=== PATIENT | male | born 1945 | race Caucasian/White ===

== ENCOUNTER 2016-10-26 13:27 | Inpatient (IN) ==
[2016-10-26] MEDS ORDERED: Ondansetron 4 MG/2 ML VIAL IVP ONE (14:11)
[2016-10-26 14:24] LABS: Lymphocytes % 17.9 %
[2016-10-26 14:26] LABS: Basophils % 0.3 %; Eosinophils # 0.3 K/mcL (0.0-0.6); Eosinophils % 5.6 %; Hematocrit 24.6 % (37.5-50.1); Hemoglobin 7.7 g/dL (12.9-16.9); Immature Granulocytes % 0.7 % (0-4); Immature Platelets 12.5 % (1.1-6.1); Lymphocytes # 1.1 K/mcL (0.6-4.6); Mean Corpuscular HGB Conc 31.3 g/dL (31.6-35.5); Mean Corpuscular Hemoglobin 31.8 pg (28.0-33.3); Mean Corpuscular Volume 101.7 fL (83.0-100.0); Mean Platelet Volume 13.2 fL (9.4-12.4); Monocytes # 0.4 K/mcL (0.0-1.3); Monocytes % 6.8 %; Red Blood Count 2.42 M/mcL (4.19-5.50); Red Cell Distribution Width 15.7 % (11.5-14.5); Segmented Neutrophils % 68.7 %
[2016-10-26 14:30] LABS: INR 1.9
[2016-10-26 14:32] LABS: Activated Partial Thrombo Time 39.3 Seconds (26.0-36.0)
[2016-10-26 14:43] LABS: Calcium 9.4 mg/dL (8.6-10.8); Potassium 4.9 mEq/L (3.5-4.5)
[2016-10-26 14:50] LABS: Neutrophils # 4.1 K/mcL (1.6-8.9); Platelet Count 66 K/mcL (140-400)
[2016-10-26 14:52] LABS: Platelet Estimate Decreased (Normal)
--- NOTE | 2016-10-26 15:11 | Emergency Department Note ---
Disposition Clinical Impression: Thrombocytopenia Atrial fibrillation Qualifiers: Atrial fibrillation type: paroxysmal Qualified Code(s): I48.0 - Paroxysmal atrial fibrillation Anemia Qualifiers: Anemia type: iron deficiency Iron deficiency anemia type: chronic blood loss Qualified Code(s): D50.0 - Iron deficiency anemia secondary to blood loss ( chronic) GI bleeding Qualifiers: GI bleed type/associated pathology: unspecified gastrointestinal hemorrhage type Qualified Code(s): K92.2 - Gastrointestinal hemorrhage, unspecified Disposition: Admitted As Inpatient Condition: Good Time of Disposition: 15:13 General Adult HPI - General Chief complaint: ED Recheck/Abnormal Lab/Rx Stated complaint: anemia/Pn Time Seen by Provider: 10/26/16 13:30 Source: patient Mode of arrival: EMS Limitations: no limitations Nursing Notes Reviewed: Yes Vital Signs Reviewed: Yes - History of Present Illness HPI Narrative: 70-year-old male brought in from the [place] with concerns of anemia, weakness, shortness of breath, near syncope. Patient states that he has become increasingly short of breath and lightheaded over the past 2 weeks. He had a lab draw as an outpatient which returned as abnormal at 6.9. The [place] sent him to [facility] for further care and evaluation due to his dialysis. Patient receives dialysis Monday, Monday, Monday. He states he had his treatment already this morning. Patient also had a chest x-ray at the [place] which showed persistent multifocal airspace disease that could represent a residual or recurrent pneumonia. Patient states he has been treated with 3 different courses of antibiotics over the past month. He does state that he is mildly short of breath and does have a cough however he does not have a fever in the emergency department. Patient denies diarrhea, hematochezia, melena. Pain Scale: 0 - Related Data Home Medications Medication Instructions Recorded Confirmed Albuterol Sulfate [Albuterol 2 puff IH QID PRN 09/02/16 10/26/16 Inhaler] Apixaban [Eliquis] 5 mg PO BID 09/02/16 10/26/16 Calcium Acetate [Phos-LO] 1,334 mg PO TID 09/02/16 10/26/16 Carvedilol [Coreg] 6.25 mg PO BIDWM 09/02/16 10/26/16 Gabapentin [Neurontin] 300 mg PO DAILY 09/02/16 10/26/16 Isosorbide MONOnitrate (24 HR) 30 mg PO DAILY 09/02/16 10/26/16 [Imdur] Multivitamin [Multivitamins] 1 tab PO DAILY 09/02/16 10/26/16 Ondansetron ODT [Zofran ODT] 4 mg SL Q6H PRN 09/02/16 10/26/16 Oxycodone HCl 10 mg PO BID 09/02/16 10/26/16 Sevelamer [Renvela] 2,400 mg PO TIDWM 09/02/16 10/26/16 Acetaminophen/Chlorpheniramine 2 tab PO BID PRN 09/19/16 10/26/16 [Coricidin Hbp Cold & Flu Tab] Albuterol Neb [Proventil Neb] 2.5 mg IH BID PRN 09/19/16 10/26/16 Budesonide/Formoterol 160/4.5 2 puff IH Q12H 09/19/16 10/26/16 [Symbicort 160/4.5] Furosemide [Lasix] 40 mg PO DAILY 09/19/16 10/26/16 Pantoprazole Sodium [Protonix] 40 mg PO DAILY 09/19/16 10/26/16 Simvastatin [Zocor] 5 mg PO HS 09/19/16 10/26/16 Valsartan [Diovan] 80 mg PO BID 09/19/16 10/26/16 Amlodipine [Norvasc] 5 mg PO BID 10/26/16 10/26/16 Terazosin [Hytrin] 1 mg PO DAILY 10/26/16 10/26/16 Allergies Allergy/AdvReac Type Severity Reaction Status Date / Time morphine Allergy See Verified 09/19/16 05:43 Comments All systems ED: reviewed and negative except as stated. Constitutional: Reports: weakness. Denies: fever, chills, weight change Cardiovascular: Reports: dyspnea on exertion. Denies: chest pain, palpitations , syncope, paroxysmal nocturnal dyspnea Respiratory: Reports: cough, dyspnea, wheezes. Denies: hemoptysis Gastrointestinal: Denies: abdominal pain, nausea, vomiting, diarrhea, hematemesis, melena, hematochezia Musculoskeletal: Denies: back pain, neck pain Integumentary: Denies: rash, abrasion Past Medical History - Past Medical History Attestation: Yes The following information was validated with the patient. Source: patient Medical history: Reports: atrial fibrillation, COPD, coronary artery disease, CVA, diabetes, dialysis, hyperlipidemia, hypertension, myocardial infarction, renal disease Surgical history: Reports: coronary bypass (CABG), other Psychiatric history: Reports: no psych history - Social History Smoking Status: Never smoker Smokeless Tobacco Status: No Alcohol use: Reports: none Drug use: Reports: none Physical Exam General: Alert and in no acute distress Skin: Warm, dry, intact Head: Normocephalic and atraumatic Neck: Supple, trachea midline and no tenderness Cardiovascular: RRR, no murmur, normal perfusion Respiratory: CTAB, no wheezing, cough, or respiratory distress Musculoskeletal: Normal strength, no tenderness to palpation on exam GI: Soft, nontender, nondistended. Bowel sounds present Neuro: A&O to person, place, time and situation. No focal deficits noted on exam Psychiatric: cooperative and appropriate mood and affect. - General Limitations: no limitations General appearance: alert, in no apparent distress Course Vital Signs Temperature 98.0 F 10/26/16 13:29 Pulse Rate 73 10/26/16 13:29 Respiratory Rate 18 10/26/16 13:29 Blood Pressure 143/93 10/26/16 13:29 O2 Sat by Pulse Oximetry 92 L 10/26/16 13:29 Temperature 98.4 F 10/26/16 23:58 Pulse Rate 74 10/26/16 23:58 Respiratory Rate 20 10/26/16 23:58 Blood Pressure 116/67 10/26/16 23:58 O2 Sat by Pulse Oximetry 95 10/26/16 23:58 Oxygen Delivery Oxygen Delivery Nasal Cannula Medical Decision Making - [facility] Narrative Medical decision making narrative: Patient satting 89% with a good waveform in the emergency department. He likely has symptomatic anemia. Stool sample positive for occult blood. - Medical Records Medical records reviewed: Yes I reviewed the patient's medical records. - Lab Data Lab results reviewed: Yes I reviewed the patient's lab results. Result diagrams: 10/26/16 13:47 10/26/16 13:47 Lab Results 10/26/16 10/26/16 10/26/16 Range/Units 13:47 13:47 13:47 WBC 5.9 (4.3-11.1) K/mcL RBC 2.42 L (4.19-5.50) M/mcL Hgb 7.7 L (12.9-16.9) g/dL Hct 24.6 L (37.5-50.1) % MCV 101.7 H (83.0-100.0) fL MCH 31.8 (28.0-33.3) pg MCHC 31.3 L (31.6-35.5) g/dL RDW 15.7 H (11.5-14.5) % Plt Count 66 L (140-400) K/mcL MPV 13.2 H (9.4-12.4) fL Immature Gran % 0.7 (0-4) % Seg Neutrophils % 68.7 % Lymphocytes % 17.9 % Monocytes % 6.8 % Eosinophils % 5.6 % Basophils % 0.3 % Neutrophils # 4.1 (1.6-8.9) K/mcL Lymphocytes # 1.1 (0.6-4.6) K/mcL Monocytes # 0.4 (0.0-1.3) K/mcL Eosinophils # 0.3 (0.0-0.6) K/mcL Basophils # 0.0 (0.0-0.2) K/mcL Platelet Estimate Decreased L (Normal) Immature Plt Fraction 12.5 H (1.1-6.1) % PT 21.0 H (9.4-12.1) Seconds INR 1.9 APTT 39.3 H (26.0-36.0) Seconds Sodium 140 (136-145) mEq/L Potassium 4.9 H (3.5-4.5) mEq/L Chloride 101 (98-109) mEq/L Carbon Dioxide 31 H (19-29) mEq/L BUN 24 (8-26) mg/dL Creatinine 4.13 H (0.72-1.25) mg/dL Est GFR ( Amer) 17 L (> 60) Est GFR (Non-Af Amer) 14 L (> 60) BUN/Creatinine Ratio 6 (6-26) Glucose 194 H (70-99) mg/dL POC Glucose (58-89) Calculated Osmolality 299 (280-300) Calcium 9.4 (8.6-10.8) mg/dL B-Natriuretic Peptide (0-100) pg/mL Stool Occult Blood (Negative) Blood Type Antibody Screen Crossmatch 10/26/16 10/26/16 10/26/16 Range/Units 13:47 13:47 15:24 WBC (4.3-11.1) K/mcL RBC (4.19-5.50) M/mcL Hgb (12.9-16.9) g/dL Hct (37.5-50.1) % MCV (83.0-100.0) fL MCH (28.0-33.3) pg MCHC (31.6-35.5) g/dL RDW (11.5-14.5) % Plt Count (140-400) K/mcL MPV (9.4-12.4) fL Immature Gran % (0-4) % Seg Neutrophils % % Lymphocytes % % Monocytes % % Eosinophils % % Basophils % % Neutrophils # (1.6-8.9) K/mcL Lymphocytes # (0.6-4.6) K/mcL Monocytes # (0.0-1.3) K/mcL Eosinophils # (0.0-0.6) K/mcL Basophils # (0.0-0.2) K/mcL Platelet Estimate (Normal) Immature Plt Fraction (1.1-6.1) % PT (9.4-12.1) Seconds INR APTT (26.0-36.0) Seconds Sodium (136-145) mEq/L Potassium (3.5-4.5) mEq/L Chloride (98-109) mEq/L Carbon Dioxide (19-29) mEq/L BUN (8-26) mg/dL Creatinine (0.72-1.25) mg/dL Est GFR ( Amer) (> 60) Est GFR (Non-Af Amer) (> 60) BUN/Creatinine Ratio (6-26) Glucose (70-99) mg/dL POC Glucose (58-89) Calculated Osmolality (280-300) Calcium (8.6-10.8) mg/dL B-Natriuretic Peptide 2001 H (0-100) pg/mL Stool Occult Blood Positive A (Negative) Blood Type A POSITIVE Antibody Screen NEGATIVE Crossmatch See Detail 10/26/16 Range/Units 21:51 WBC (4.3-11.1) K/mcL RBC (4.19-5.50) M/mcL Hgb (12.9-16.9) g/dL Hct (37.5-50.1) % MCV (83.0-100.0) fL MCH (28.0-33.3) pg MCHC (31.6-35.5) g/dL RDW (11.5-14.5) % Plt Count (140-400) K/mcL MPV (9.4-12.4) fL Immature Gran % (0-4) % Seg Neutrophils % % Lymphocytes % % Monocytes % % Eosinophils % % Basophils % % Neutrophils # (1.6-8.9) K/mcL Lymphocytes # (0.6-4.6) K/mcL Monocytes # (0.0-1.3) K/mcL Eosinophils # (0.0-0.6) K/mcL Basophils # (0.0-0.2) K/mcL Platelet Estimate (Normal) Immature Plt Fraction (1.1-6.1) % PT (9.4-12.1) Seconds INR APTT (26.0-36.0) Seconds Sodium (136-145) mEq/L Potassium (3.5-4.5) mEq/L Chloride (98-109) mEq/L Carbon Dioxide (19-29) mEq/L BUN (8-26) mg/dL Creatinine (0.72-1.25) mg/dL Est GFR ( Amer) (> 60) Est GFR (Non-Af Amer) (> 60) BUN/Creatinine Ratio (6-26) Glucose (70-99) mg/dL POC Glucose 323 H (58-89) Calculated Osmolality (280-300) Calcium (8.6-10.8) mg/dL B-Natriuretic Peptide (0-100) pg/mL Stool Occult Blood (Negative) Blood Type Antibody Screen Crossmatch - Radiology Data Radiology results reviewed: Yes I reviewed the patient's radiology results. - EKG Data EKG #1 EKG attestation: Yes I reviewed and interpreted this EKG. EKG results narrative: ECG - interpreted by ED physician. Rate 68 atrial fibrillation, no STEMI
[2016-10-26] MEDS ORDERED: 0.9 % Sodium Chloride 500 ML ONE (16:36)
[2016-10-26] MEDS ORDERED: Naloxone 0.4 MG/ML INJ IVP PRN (17:11)
[2016-10-26] MEDS ORDERED: Ondansetron 4 MG/2 ML VIAL IVP PRN (17:11)
[2016-10-26] MEDS ORDERED: Acetaminophen 325 MG TABLET PO PRN (17:11)
[2016-10-26] MEDS ORDERED: D5% in Water 1,000 ML IV PRN (17:15)
[2016-10-26] MEDS ORDERED: Dextrose Gel 15 GM PO PRN ×2 (17:15)
[2016-10-26] MEDS ORDERED: *HR* Dextrose 50 % in Water (Syg) 50 ML SYRINGE IVP PRN (17:15)
[2016-10-26] MEDS ORDERED: Budesonide/Formoterol 160/4.5 MDI IH SCH (17:30)
--- NOTE | 2016-10-26 17:32 | Internal Med History&Physical ---
Date of Encounter: 10/26/16 Time of Encounter: 17:24 Assessment and Plan (1) Anemia Current visit: Yes Status: Acute Acute o chronic, with symptoms he will be admitted for blood transfusion, will hold Apixaban, PLT is 66, no indication for PLT transfusion, or FFP at this time as there is no overt bleeding at this time. Will monitor closely. GI consult for endoscopy/colonoscopy. Patient states his last colonoscopy was ~8 years ago patient is [id number] Qualifiers: Anemia type: iron deficiency Iron deficiency anemia type: chronic blood loss Qualified Code(s): D50.0 - Iron deficiency anemia secondary to blood loss (chronic) (2) Atrial fibrillation Current visit: Yes Status: Chronic Hold Apixaban rate is controlled, resume other home meds Qualifiers: Atrial fibrillation type: paroxysmal Qualified Code(s): I48.0 - Paroxysmal atrial fibrillation (3) Thrombocytopenia Current visit: Yes Status: Chronic PLT 66, previously 77 Will transfuse PLT if patient has bleeding , or if PLT drops <50 (4) DVT prophylaxis Current visit: Yes Status: Acute Intermittent compression devices (5) Hospital-acquired pneumonia Current visit: No Status: Resolved Resolved, CXR noted Patient with granulomas and recurrent pneumonia, current SOB possibly due to Anemia Patient does not want bronchoscopy for his recurrent pneumonias and persistent LLL infiltrate (6) CAD (coronary artery disease) Current visit: No Status: Chronic Qualifiers: Coronary Disease-Associated Artery/Lesion type: [place] artery [place] vs. transplanted heart: [place] heart Associated angina: without angina Qualified Code(s): I25.10 - Atherosclerotic heart disease of [place] coronary artery without angina pectoris (7) Diabetes mellitus, type 2 Current visit: Yes Status: Chronic Sliding scale insulin Qualifiers: Diabetes mellitus complication status: with kidney complications Diabetes mellitus complication detail: with chronic kidney disease Diabetes mellitus terminal clerk insulin use: without terminal clerk use Chronic kidney disease stage: on chronic dialysis Qualified Code(s): E11.22 - Type 2 diabetes mellitus with diabetic chronic kidney disease; N18.6 - End stage renal disease; Z99.2 - Dependence on renal dialysis (8) Essential hypertension Current visit: Yes Status: Chronic Resume home meds (9) ESRD (end stage renal disease) Current visit: Yes Status: Chronic Resume renal meds Renal consult for resumption of HD Internal Medicine - H&P: HPI Chief complaint: Shortness of breath Admitted From: Home Plans for Post Hospital Care: Home History of present illness: Mr. Lorenzana is a 70 year old male with past medical history of end-stage renal disease on hemodialysis Wednesdays and Fridays, chronic thrombocytopenia and anemia, atrial fibrillation on anticoagulation, recurrent pneumonias, status post left below knee amputation, diabetes mellitus type 2, CAD, hypertension and hyperlipidemia. Patient is seen at bedside He was hospitalized in September 2016 for management of pneumonia. He presents this time reporting shortness of breath for the past 1 week associated with easy fatigability, and generalized weakness. This morning he had an episode of dizziness with lightheadedness. He went for follow-up with his PCP and his hemoglobin was 6.9. He was referred here for blood transfusion. He denies proximal, denies hematemesis, denies hematochezia denies hematuria. He denies fevers or chills, reports chronic cough, he denies nausea vomiting he denies chest pain no change in bowel or bladder or urinary habits Patient has had several bouts of pneumonia between August 2016 and now, and had been offered bronchoscopy during his last admission which she vehemently refused and still refuses. Repeat hemoglobin done here is 7.7, patient's baseline is between 9- 10.platelet count 66,000, no leukocytosis. Repeat chest x-ray showed decreased persistent left lower lobe infiltrates and pulmonary vascular congestion. Stool occult test is positive PT is 21,INR was 1.9 creatinine is at baseline, mild hyperkalemia potassium 4.9. Past Med Surg Social Fam HX - Past Medical History Medical history: atrial fibrillation, COPD, coronary artery disease, CVA, diabetes, dialysis, hyperlipidemia, hypertension, myocardial infarction, renal disease Psychiatric history: no psych history - Past Surgical History Surgical History: coronary bypass (CABG), other - Social History Smoking Status: Never smoker Smokeless Tobacco Status: No Alcohol use: none Drug use: none - Family History Mother Hx Family Cardiac Disorders: Yes Hx Family Respiratory Disorders: No Hx Family Cancer: No Hx Family GI Disorders: No Hx Family Endocrine Disorder: No Hx Family Neuromuscular Disorders: No Hx Family Neurologic Disorders: No Hx Family HEENT Disorders: No Hx Family Autoimmune Disorders: No Internal Medicine - H&P: Meds Albuterol Sulfate [Albuterol Inhaler] 2 puff IH QID PRN 09/02/16 [History] Apixaban [Eliquis] 5 mg PO BID 09/02/16 [History] Calcium Acetate [Phos-LO] 1,334 mg PO TID 09/02/16 [History] Carvedilol [Coreg] 6.25 mg PO BIDWM 09/02/16 [History] Gabapentin [Neurontin] 300 mg PO DAILY 09/02/16 [History] Isosorbide MONOnitrate (24 HR) [Imdur] 30 mg PO DAILY 09/02/16 [History] Multivitamin [Multivitamins] 1 tab PO DAILY 09/02/16 [History] Ondansetron ODT [Zofran ODT] 4 mg SL Q6H PRN 09/02/16 [History] Oxycodone HCl 10 mg PO BID 09/02/16 [History] Sevelamer [Renvela] 2,400 mg PO TIDWM 09/02/16 [History] Acetaminophen/Chlorpheniramine [Coricidin Hbp Cold & Flu Tab] 2 tab PO BID PRN 09/19/16 [History] Albuterol Neb [Proventil Neb] 2.5 mg IH BID PRN 09/19/16 [History] Budesonide/Formoterol 160/4.5 [Symbicort 160/4.5] 2 puff IH Q12H 09/19/16 [ History] Furosemide [Lasix] 40 mg PO DAILY 09/19/16 [History] Pantoprazole Sodium [Protonix] 40 mg PO DAILY 09/19/16 [History] Simvastatin [Zocor] 5 mg PO HS 09/19/16 [History] Valsartan [Diovan] 80 mg PO BID 09/19/16 [History] Amlodipine [Norvasc] 5 mg PO BID 10/26/16 [History] Terazosin [Hytrin] 1 mg PO DAILY 10/26/16 [History] Allergies morphine Allergy (Verified 09/19/16 05:43) See Comments All Systems PM: A 10-system review of systems was performed and is negative for pertinent findings except as documented above in the HPI. - Constitutional Constitutional: fatigue, lethargy, malaise, no chills, no fever(s), no night sweats - EENT Eyes: no change in vision, no discharge, no pain, no photophobia Ears: no ear discharge, no ear pain, no tinnitus Nose, mouth and throat: no dysphagia, no nasal discharge, no neck pain, no sore throat - Cardiovascular Cardiovascular ROS IM: no chest pain, no diaphoresis, no dyspnea, no lightheadedness, no palpitations, no syncope - Respiratory Respiratory: cough, dyspnea - Gastrointestinal Gastrointestinal: no abdominal pain, no diarrhea, no hematemesis, no hematochezia, no melena, no nausea, no vomiting - Musculoskeletal Musculoskeletal ROS IM: no numbness, no tingling - Integumentary Integumentary IM: no rash, no unusual bruising - Neurological Neurological ROS: no confusion, no convulsions, no focal weakness, no numbness, no tingling, no tremor(s) - Hematologic/Lymphatic Hematologic/Lymphatic: no easy bruising - Constitutional Vitals: Temp Pulse Resp BP Pulse Ox 98 F 72 18 150/61 100 10/26/16 17:06 10/26/16 17:06 10/26/16 17:06 10/26/16 17:06 10/26/16 16:00 General appearance: Present: A&O X 3, pleasant, no acute distress - Head Head exam: Present: atraumatic - Eye Eye exam: Present: PERRL, conjuntiva pink, sclera anicteric - ENT ENT exam: Present: mucous membranes moist - Neck Neck exam general surgery: Present: normal inspection - Respiratory Respiratory exam: Present: CTAB. Absent: rales, rhonchi, stridor, wheezes, tachypnea - Cardiovascular Cardiovascular exam: Present: irregular rhythm, +S1, +S2. Absent: systolic murmur - GI/Abdominal GI/Abdominal exam: Present: normal bowel sounds, soft, no peritoneal signs. Absent: tenderness - Extremities Exam Extremities exam: Absent: pedal edema Additional comments: s/p LEft BKA Internal Med - H&P Results - Labs CBC & Chem 7: 10/26/16 13:47 10/26/16 13:47
[2016-10-26] MEDS: Albuterol 2.5 MG/3 ML NEBULIZER IH SCH (20:00)
[2016-10-26] MEDS ORDERED: Insulin LISPRO 300 UNITS/3 ML VIAL SQ SCH (21:00)
[2016-10-26] MEDS: amLODIPine 5 MG TABLET PO SCH (21:56)
[2016-10-26] MEDS: *HR* OxyCODONE ER (12 HR) 10 MG TABLET PO SCH (21:57)
[2016-10-26] MEDS: Valsartan 80 MG TABLET PO SCH (21:57)
[2016-10-27] MEDS: Albuterol 2.5 MG/3 ML NEBULIZER IH SCH ×5 (01:05→15:16)
[2016-10-27 05:58] LABS: Lymphocytes % 22.5 %; Red Cell Distribution Width 15.5 % (11.5-14.5)
[2016-10-27 06:00] LABS: Basophils % 0.5 %; Eosinophils # 0.4 K/mcL (0.0-0.6); Eosinophils % 6.8 %; Hematocrit 25.6 % (37.5-50.1); Hemoglobin 8.3 g/dL (12.9-16.9); Immature Granulocytes % 0.3 % (0-4); Immature Platelets 11.7 % (1.1-6.1); Lymphocytes # 1.4 K/mcL (0.6-4.6); Mean Corpuscular HGB Conc 32.4 g/dL (31.6-35.5); Mean Corpuscular Hemoglobin 32.8 pg (28.0-33.3); Mean Corpuscular Volume 101.2 fL (83.0-100.0); Mean Platelet Volume 13.3 fL (9.4-12.4); Monocytes # 0.5 K/mcL (0.0-1.3); Monocytes % 8.8 %; Neutrophils # 3.7 K/mcL (1.6-8.9); Red Blood Count 2.53 M/mcL (4.19-5.50); Segmented Neutrophils % 61.1 %
[2016-10-27 06:06] LABS: Potassium 5.2 mEq/L (3.5-4.5)
[2016-10-27 06:07] LABS: Platelet Count 58 K/mcL (140-400)
[2016-10-27 08:33] LABS: Albumin 3.1 g/dL (3.5-5.0); Bilirubin,Direct 0.3 mg/dL (0.0-0.5); Bilirubin,Indirect 0.5 mg/dL (0.0-1.2); Bilirubin,Total 0.8 mg/dL (0.2-1.2); Globulin 3.1 g/dL (2.4-3.5); Total Protein 6.2 g/dL (6.0-8.3)
[2016-10-27] MEDS: Valsartan 80 MG TABLET PO SCH (08:51)
[2016-10-27] MEDS: Calcium Acetate 667 MG CAPSULE PO SCH ×3 (08:51→17:52)
[2016-10-27] MEDS: amLODIPine 5 MG TABLET PO SCH (08:52)
[2016-10-27] MEDS: *HR* OxyCODONE ER (12 HR) 10 MG TABLET PO SCH (08:52)
[2016-10-27] MEDS ORDERED: Furosemide 40 MG TABLET PO SCH (09:00)
[2016-10-27] MEDS ORDERED: Gabapentin 300 MG CAPSULE PO SCH (09:00)
[2016-10-27] MEDS ORDERED: Multivit/Ca/Min/Fe/FA 1 TAB TABLET PO SCH (09:00)
[2016-10-27] MEDS ORDERED: Isosorbide MONOnitrate (24 HR) 30 MG TAB.ER.24H PO SCH (09:00)
--- NOTE | 2016-10-27 09:04 | Gastroenterology Consult Note ---
<Chari Saldivar - Last Filed: 10/27/16 11:10> Date of Encounter: 10/27/16 Time of Encounter: 10:55 - Assessment and plan (1) Anemia Current Visit: Yes Status: Acute Assessment and plan: acute on chronic. Admits melena for 'several days' prior to admission. Revd EGD/ Cscope with patient - he politely refuses those interventions at this time. Qualifiers: Anemia type: iron deficiency Iron deficiency anemia type: chronic blood loss Qualified Code(s): D50.0 - Iron deficiency anemia secondary to blood loss (chronic) (2) ESRD (end stage renal disease) Current Visit: Yes Status: Chronic Assessment and plan: on HD, MWF; attending discussed dialysis today versus tomorrow in prep for possible endoscopy. (3) Thrombocytopenia Current Visit: Yes Status: Chronic Assessment and plan: Unclear etiology. US liver to r/o cirrhosis. Inconclusive, ok to do CT with contrast per attending. - Time Spent With Patient Total time spent is greater than 50% in coordination of care (as documented) at patient's floor/unit and/or counseling patient: less than 15 minutes GI History of Present Illness - Data of Consult Consult date: 10/27/16 Requesting Physician: Demetria Cevallos MD - Consult Narrative Reason for consult: Anemia History of present illness: Mr. Lorenzana is a 70 year old male with PMH of ESRD on HD MWF, thrombocytopenia, chronic anemia, afib on Eliquis, s/p L BKA, DM2, CAD, HTN, HLD. Most recently, he was hospitalized in September 2016 for management of pneumonia from [facility]. He presents this time reporting shortness of breath for the past 1 week associated with easy fatigability, and generalized weakness. This morning he had an episode of dizziness with lightheadedness. He went for follow-up with his PCP and his hemoglobin was 6.9. He was referred here for blood transfusion by [facility]. He denies proximal, denies hematemesis, denies hematochezia denies hematuria.He denies fevers or chills, reports chronic cough, he denies nausea vomiting he denies chest pain no change in bowel or bladder or urinary habits Patient has had several bouts of pneumonia between August 2016 and now, and had been offered bronchoscopy during his last admission which he vehemently refused and still refuses. Hgb 7.7 upon arrival (baseline of 9), he received 1 unit PRBC, current hgb 8.3, plts are low at 58. CXR showed persistant lung infiltrates. Patient denies N/V, indigestion/heartburn; admits chronic dysphagia with liquids due to a complication during a procedure, 'they screwed up my neck'. Denies abd pain. Admits black stools for the past 'few days', denies BRBPR. Explained to patient the risks and benefits of EGD/Colon evaluation, he politely refused any intervention at this time. Colonoscopy: Approx 8 years EGD: 8-10 years Past Med Surg Social Fam HX - Past Medical History Medical history: atrial fibrillation, COPD, coronary artery disease, CVA, diabetes, dialysis, hyperlipidemia, hypertension, myocardial infarction, renal disease Psychiatric history: no psych history - Past Surgical History Surgical History: coronary bypass (CABG), other - Social History Smoking Status: Never smoker Smokeless Tobacco Status: No Alcohol use: none Drug use: none - Family History Mother Hx Family Cardiac Disorders: Yes Hx Family Respiratory Disorders: No Hx Family Cancer: No Hx Family GI Disorders: No Hx Family Endocrine Disorder: No Hx Family Neuromuscular Disorders: No Hx Family Neurologic Disorders: No Hx Family HEENT Disorders: No Hx Family Autoimmune Disorders: No - Gastrointestinal NSAID use: None noted Anticoagulation Use: Eliquis Number of BM Per Day: daily Gastrointestinal: Present: melena - Constitutional Constitutional: as per HPI - EENT Eyes: as per HPI Ears: Present: as per HPI Nose, mouth and throat: Present: dysphagia - Cardiovascular Cardiovascular ROS: Present: irregular heart rhythm - Respiratory Respiratory IM: Present: as per HPI - Neurological ROS Neurological GI: Present: as per HPI - Hematologic/Lymphatic Hematologic/Lymphatic pediatric: Present: as per HPI - Musculoskeletal Additional Comment: R BKA - Integumentary Integumentary GI: Present: as per HPI - Psychiatric ROS Psychiatric GI: Present: as per HPI - Endocrine Endocrine IM: Present: as per HPI - Constitutional Vitals: Temp Pulse Resp BP Pulse Ox 98.0 F 74 17 140/60 87 L 10/27/16 07:15 10/27/16 07:15 10/27/16 07:15 10/27/16 07:15 10/27/16 07:15 General appearance: Present: cooperative, A&O X 3, no acute distress, answers questions appropriately - Head Head exam: Present: atraumatic, normocephalic - Eye Eye exam: Present: scleral icterus - ENT ENT exam: Present: mucous membranes moist - Neck Neck exam general surgery: Present: normal inspection, trachea midline - Respiratory Respiratory exam: Present: decreased breath sounds - Cardiovascular Cardiovascular exam: Present: irregular rhythm - GI/Abdominal GI/Abdominal exam: Present: normal bowel sounds, soft, no peritoneal signs - Rectal Rectal exam: Present: deferred - Extremities Exam Extremities exam: Present: warm Additional comments: R BKA - Neurological Exam Neurological exam: Present: no focal deficits - Psychiatric Psychiatric exam: Present: normal affect, normal mood - Skin Skin exam: Present: dry, intact, pallor, warm Results - Labs CBC & Chem 7: 10/27/16 05:21 10/27/16 05:21 Labs: Last Result Calcium 9.0 mg/dL (8.6-10.8) 10/27/16 05:21 Iron 141 mcg/dL (65-175) 10/26/16 13:47 % Saturation 58 % (20-55) H 10/26/16 13:47 Transferrin 175 mg/dL (174-364) 10/26/16 13:47 Stool Occult Blood Positive (Negative) A 10/26/16 15:24 Entire Visit Hgb 8.3 g/dL (12.9-16.9) L 10/27/16 05:21 Hct 25.6 % (37.5-50.1) L 10/27/16 05:21 PT 21.0 Seconds (9.4-12.1) H 10/26/16 13:47 Total Bilirubin 0.8 mg/dL (0.2-1.2) 10/27/16 05:21 AST 17 Units/L (5-34) 10/27/16 05:21 ALT 16 Units/L (0-55) 10/27/16 05:21 - ABG ABG results: PT/INR, D-dimer PT 21.0 Seconds (9.4-12.1) H 10/26/16 13:47 Consult Discharge Plan - Plan [facility]errals: [facility]Primary Care Provider[facility] - <Walt Bacon - Last Filed: 10/27/16 17:23> Date of Encounter: 10/27/16 Time of Encounter: 14:00 - Time Spent With Patient Total time spent is greater than 50% in coordination of care (as documented) at patient's floor/unit and/or counseling patient: GI History of Present Illness - Data of Consult Requesting Physician: Demetria Cevallos MD - Consult Narrative History of present illness: Mr. Lorenzana is a 70 year old male - Constitutional Vitals: Temp Pulse Resp BP Pulse Ox 98.0 F 82 18 144/68 91 L 10/27/16 16:15 10/27/16 16:15 10/27/16 16:15 10/27/16 16:15 10/27/16 16:15 Results - Labs CBC & Chem 7: 10/27/16 05:21 10/27/16 05:21 Labs: Last Result Calcium 9.0 mg/dL (8.6-10.8) 10/27/16 05:21 Iron 141 mcg/dL (65-175) 10/26/16 13:47 % Saturation 58 % (20-55) H 10/26/16 13:47 Transferrin 175 mg/dL (174-364) 10/26/16 13:47 Stool Occult Blood Positive (Negative) A 10/26/16 15:24 Entire Visit Hgb 8.3 g/dL (12.9-16.9) L 10/27/16 05:21 Hct 25.6 % (37.5-50.1) L 10/27/16 05:21 PT 21.0 Seconds (9.4-12.1) H 10/26/16 13:47 Total Bilirubin 0.8 mg/dL (0.2-1.2) 10/27/16 05:21 AST 17 Units/L (5-34) 10/27/16 05:21 ALT 16 Units/L (0-55) 10/27/16 05:21 - ABG ABG results: PT/INR, D-dimer PT 21.0 Seconds (9.4-12.1) H 10/26/16 13:47 - Attending Attestation I examined this patient and my medical decision-making was reviewed with the TRANSIT POLICE OFFICER/PA/Advanced Practice Nurse/Resident Physician. I agree with the documented findings, disposition and treatment plan as described except to the extent set forth below.
[2016-10-27] MEDS: Insulin LISPRO 300 UNITS/3 ML VIAL SQ SCH ×3 (09:09→17:51)
--- NOTE | 2016-10-27 09:40 | Internal Med Progress Note ---
Date of Encounter: 10/27/16 Time of Encounter: 09:15 - Assessment and plan (1) Anemia Current Visit: Yes Status: Acute Assessment and plan: Patient's baseline hemoglobin is around 9-11 and he is noted to have hemoglobin of 7.7 at the time of admission along with a history of intermittent melena and long-term anticoagulation with Eliquis. He received 1 unit PRBC transfusion and his hemoglobin today is 8.3. Eliquis is currently being held. GI has been consulted for possible EGD/colonoscopy to rule out GI bleed. We will follow up recommendations; will also follow-up liver ultrasound that has been ordered by GI to evaluate for cirrhosis due to his ongoing thrombocytopenia and coagulopathy with INR of 1.9. Clear liquid diet as tolerated. Continue to monitor hemoglobin. Patient is also very clear about his goals of care and he would like to be DNR/ DNI and reluctant to undergo EGD/colonoscopy or bronchoscopy at this time, will continue to follow. Qualifiers: Anemia type: iron deficiency Iron deficiency anemia type: chronic blood loss Qualified Code(s): D50.0 - Iron deficiency anemia secondary to blood loss (chronic) (2) Atrial fibrillation Current Visit: Yes Status: Chronic Assessment and plan: Currently rate controlled. Hold anticoagulation for now and continue beta michelle. Qualifiers: Atrial fibrillation type: paroxysmal Qualified Code(s): I48.0 - Paroxysmal atrial fibrillation (3) Diabetes mellitus, type 2 Current Visit: Yes Status: Chronic Assessment and plan: Accu-Chek blood glucose monitoring with sliding scale insulin. Diabetic diet. Qualifiers: Diabetes mellitus complication status: with kidney complications Diabetes mellitus complication detail: with chronic kidney disease Diabetes mellitus [facility] insulin use: without termination clerk use Chronic kidney disease stage: on chronic dialysis Qualified Code(s): E11.22 - Type 2 diabetes mellitus with diabetic chronic kidney disease; N18.6 - End stage renal disease; Z99.2 - Dependence on renal dialysis (4) ESRD (end stage renal disease) Current Visit: Yes Status: Chronic Assessment and plan: Nephrology has been consulted for patient's hemodialysis needs. (5) Essential hypertension Current Visit: Yes Status: Chronic (6) Anemia of chronic disease Current Visit: Yes Status: Chronic (7) CAD (coronary artery disease) Current Visit: Yes Status: Chronic Qualifiers: Coronary Disease-Associated Artery/Lesion type: [place] artery [place] vs. transplanted heart: [place] heart Associated angina: without angina Qualified Code(s): I25.10 - Atherosclerotic heart disease of [place] coronary artery without angina pectoris - Subjective Interval history: Noted to be having dry cough intermittently and attributes it to chewing tobacco. Denies chest pain, shortness of breath, nausea, hematemesis, hematochezia. Reports intermittent melena for the last 2 months. Reluctant to have EGD and colonoscopy done at this time, needs rediscussion. - Constitutional Vitals: Temp Pulse Resp BP Pulse Ox 98.0 F 74 17 140/60 94 L 10/27/16 07:15 10/27/16 07:15 10/27/16 07:15 10/27/16 07:15 10/27/16 09:02 General appearance: Present: A&O X 3, answers questions appropriately - Head Head exam: Present: atraumatic, normocephalic - Neck Neck exam general surgery: Present: supple, trachea midline. Absent: lymphadenopathy - Respiratory Respiratory exam: Present: CTAB. Absent: accessory muscle use, rales, rhonchi, wheezes - Cardiovascular Cardiovascular exam: Present: irregular rhythm, +S1, +S2. Absent: diastolic murmur, gallop, rubs, systolic murmur - GI/Abdominal GI/Abdominal exam: Present: normal bowel sounds, soft, no peritoneal signs. Absent: distended, tenderness - Extremities Exam Extremities exam: Present: full ROM, normal inspection (s/p left BKA), warm, radial pulses palpable and symetrical. Absent: calf tenderness, cyanotic, pedal edema - Neurological Exam Neurological exam: Present: CN II-XII intact, oriented X3, no focal deficits. Absent: pronater drift, facial droop, speech deficit - Skin Skin exam: Present: dry, intact Internal Medicine: Result - Labs CBC & Chem 7: 10/27/16 05:21 10/27/16 05:21 Labs: Short CBC 10/27/16 Range/Units 05:21 WBC 6.0 (4.3-11.1) K/mcL Hgb 8.3 L (12.9-16.9) g/dL Hct 25.6 L (37.5-50.1) % Plt Count 58 L (140-400) K/mcL Neutrophils # 3.7 (1.6-8.9) K/mcL BMP 10/27/16 05:21 Sodium 140 Potassium 5.2 H Chloride 105 Carbon Dioxide 24 BUN 37 H D Creatinine 5.30 H Glucose 94 Calcium 9.0 Liver Function 10/27/16 Range/Units 05:21 Total Bilirubin 0.8 (0.2-1.2) mg/dL Direct Bilirubin 0.3 (0.0-0.5) mg/dL AST 17 (5-34) Units/L ALT 16 (0-55) Units/L Alkaline Phosphatase 142 H (38-126) Units/L Albumin 3.1 L (3.5-5.0) g/dL - ABG Interpretation ABG results: PT/INR, D-dimer PT 21.0 Seconds (9.4-12.1) H 10/26/16 13:47 Consult Discharge Plan - Plan [facility]errals: [facility] [Primary Care Provider] -
[2016-10-27] MEDS ORDERED: Budesonide/Formoterol 160/4.5 MDI IH SCH (10:00)
--- NOTE | 2016-10-27 11:25 | Electrocardiograph Report ---
[facility] Test Date: 2016-10-26 Pat Name: Ailyn Lorenzana Department: 105 Room: 2A31 Gender: M Lna: ELENO : 1945 Requested By: Kwabena Reina Order Number: [id number] Reading MD: Leonardo Ham MD Measurements Intervals Bryant Rate: 68 P: IA: 0 QRS: 34 QRSD: 98 T: -19 QT: 421 QTc: 438 Interpretive Statements ATRIAL FIBRILLATION NONSPECIFIC ST \T\ T-WAVE ABNORMALITY Electronically Signed On 10-27-16 11:24:45 EST by Leonardo Ham MD
--- NOTE | 2016-10-27 13:59 | Nephrology Consult Note ---
Date of Encounter: 10/27/16 Time of Encounter: 13:25 Assessment and Plan (1) ESRD (end stage renal disease) Current Visit: Yes Status: Chronic Anemia in setting of GI bleed with positive guiac. Hgb 8.3. Patient declined EGD /Cscope. Pending Liver US to r/o cirrhosis for unclear etiology of thrombocytopenia. ESRD, will dialyze tomorrow, keeping MWF schedule. History of Present Illness - Reason for Consult end stage renal disease - History of Present Illness Mr. Lorenzana is a 70 year old male with ESRD who dialyzes at [place] on MWF, last dialysis yesterday. Other PMH A fib, COPD CVA, DM II, HTN, HKD, HI, CAD, CABG, Left BKA and recentpersistent LLL infiltrates. Mr. Lorenzana was sent from CT to ER for evaluation of low Hgb 6.9, redraw Hgb 7.7. Mr. Lorenzana states he did have dizziness with lightheadedness yesterday. Mr. Lorenzana admitted melena stools for several days. Stool in ER guiac positive. CXR showed persistent multifocal airspace disease that could represent residual or recurrent pneumonia. He did receive one unit PRBC's and current Hgb 8.3. Mr. Lorenzana was offered EGD and Colonoscopy per GI, but he declined. He did agree to Liver US to R/O cirrhosis and states he wants to be discharged home today following US. Past Med Surg Social Fam HX - Past Medical History Medical history: atrial fibrillation, COPD, coronary artery disease, CVA, diabetes, dialysis, hyperlipidemia, hypertension, myocardial infarction, renal disease Psychiatric history: no psych history - Past Surgical History Surgical History: coronary bypass (CABG), other - Social History Smoking Status: Never smoker Smokeless Tobacco Status: No Alcohol use: none Drug use: none - Family History Mother Hx Family Cardiac Disorders: Yes Hx Family Respiratory Disorders: No Hx Family Cancer: No Hx Family GI Disorders: No Hx Family Endocrine Disorder: No Hx Family Neuromuscular Disorders: No Hx Family Neurologic Disorders: No Hx Family HEENT Disorders: No Hx Family Autoimmune Disorders: No Medications and Allergies Albuterol Sulfate [Albuterol Inhaler] 2 puff IH QID PRN 09/02/16 [History] Apixaban [Eliquis] 5 mg PO BID 09/02/16 [History] Calcium Acetate [Phos-LO] 1,334 mg PO TID 09/02/16 [History] Carvedilol [Coreg] 6.25 mg PO BIDWM 09/02/16 [History] Gabapentin [Neurontin] 300 mg PO DAILY 09/02/16 [History] Isosorbide MONOnitrate (24 HR) [Imdur] 30 mg PO DAILY 09/02/16 [History] Multivitamin [Multivitamins] 1 tab PO DAILY 09/02/16 [History] Ondansetron ODT [Zofran ODT] 4 mg SL Q6H PRN 09/02/16 [History] Oxycodone HCl 10 mg PO BID 09/02/16 [History] Sevelamer [Renvela] 2,400 mg PO TIDWM 09/02/16 [History] Acetaminophen/Chlorpheniramine [Coricidin Hbp Cold & Flu Tab] 2 tab PO BID PRN 09/19/16 [History] Albuterol Neb [Proventil Neb] 2.5 mg IH BID PRN 09/19/16 [History] Budesonide/Formoterol 160/4.5 [Symbicort 160/4.5] 2 puff IH Q12H 09/19/16 [ History] Furosemide [Lasix] 40 mg PO DAILY 09/19/16 [History] Pantoprazole Sodium [Protonix] 40 mg PO DAILY 09/19/16 [History] Simvastatin [Zocor] 5 mg PO HS 09/19/16 [History] Valsartan [Diovan] 80 mg PO BID 09/19/16 [History] Amlodipine [Norvasc] 5 mg PO BID 10/26/16 [History] Terazosin [Hytrin] 1 mg PO DAILY 10/26/16 [History] Allergies morphine Allergy (Verified 09/19/16 05:43) See Comments Review of Systems All Systems: reviewed and no additional remarkable complaints except as stated Exam - Vital Signs Vital signs: Initial Vital Signs Temp Pulse Resp BP Pulse Ox 98.0 F 73 18 143/93 92 L 10/26/16 13:29 10/26/16 13:29 10/26/16 13:29 10/26/16 13:29 10/26/16 13:29 Vital Signs - Last 8 Hours Temp Pulse Resp BP Pulse Ox 10/27/16 11:16 98.1 F 77 18 138/62 90 L 10/27/16 09:02 94 L 10/27/16 07:15 98.0 F 74 17 140/60 87 L Intake and Output 10/26/16 10/27/16 10/27/16 23:59 07:59 15:59 Intake Total 770 / 770 0 / 0 360 / 360 Output Total 0 / 0 0 / 0 Balance 770 / 770 0 / 0 360 / 360 Intake: Oral 400 / 400 0 / 0 360 / 360 Blood Product 370 / 370 Rbcs Leuko Poor As-1 370 / 370 Unit [id number] Output: Urine 0 / 0 0 / 0 Other: Meal Dinner Breakfast Percent of Meal Consumed 50% 100% Weight 70.4 kg Blood Glucose* 323 186 Patient Weight 10/27/16 23:59 Weight 70.4 kg - General Appearance General appearance: well-developed, well-nourished, appears started age EENT: mucous membranes moist Neck: no JVD Respiratory: clear Cardiology: no edema, irregular rhythm Additional Comments: right BKA Gastrointestinal: normoactive bowel sounds, no tenderness Integumentary: warm and dry Neurologic: alert and oriented x3 Psychiatric: mood/affect appropriate, cooperative Results - Lab Results 10/27/16 05:21 10/27/16 05:21 Most recent lab results Calcium 9.0 mg/dL (8.6-10.8) 10/27/16 05:21 Consult Discharge Plan - Plan [facility]errals: [facility] [Primary Care Provider] -
[2016-10-27 16:16] VITALS: BP 144/68
[2016-10-27] MEDS ORDERED: SODIUM CHLORIDE/NAHCO3/KCL/PEG 4,000 ML SOLN.RECON PO ONE (17:07)
--- NOTE | 2016-10-27 18:17 | Discharge Summary ---
Date of Encounter: 10/27/16 Time of Encounter: 10:00 - Discharge Diagnosis (1) Anemia Priority: Primary Status: Acute Qualifiers: Anemia type: iron deficiency Iron deficiency anemia type: chronic blood loss Qualified Code(s): D50.0 - Iron deficiency anemia secondary to blood loss (chronic) (2) Atrial fibrillation Priority: Secondary Status: Chronic Qualifiers: Atrial fibrillation type: paroxysmal Qualified Code(s): I48.0 - Paroxysmal atrial fibrillation (3) Diabetes mellitus, type 2 Priority: Secondary Status: Chronic Qualifiers: Diabetes mellitus complication status: with kidney complications Diabetes mellitus complication detail: with chronic kidney disease Diabetes mellitus [employer] insulin use: without [employer] use Chronic kidney disease stage: on chronic dialysis Qualified Code(s): E11.22 - Type 2 diabetes mellitus with diabetic chronic kidney disease; N18.6 - End stage renal disease; Z99.2 - Dependence on renal dialysis (4) ESRD (end stage renal disease) Priority: Secondary Status: Chronic (5) Essential hypertension Priority: Secondary Status: Chronic (6) Anemia of chronic disease Priority: Secondary Status: Chronic (7) CAD (coronary artery disease) Priority: Secondary Status: Chronic Qualifiers: Coronary Disease-Associated Artery/Lesion type: [place] artery [place] vs. transplanted heart: ch[place]koot heart Associated angina: without angina Qualified Code(s): I25.10 - Atherosclerotic heart disease of [place] coronary artery without angina pectoris - Discharge Medications Home Medications: Albuterol Sulfate [Albuterol Inhaler] 2 puff IH QID PRN 09/02/16 [History] Apixaban [Eliquis] 5 mg PO BID 09/02/16 [History] Calcium Acetate [Phos-LO] 1,334 mg PO TID 09/02/16 [History] Carvedilol [Coreg] 6.25 mg PO BIDWM 09/02/16 [History] Gabapentin [Neurontin] 300 mg PO DAILY 09/02/16 [History] Isosorbide MONOnitrate (24 HR) [Imdur] 30 mg PO DAILY 09/02/16 [History] Multivitamin [Multivitamins] 1 tab PO DAILY 09/02/16 [History] Ondansetron ODT [Zofran ODT] 4 mg SL Q6H PRN 09/02/16 [History] Oxycodone HCl 10 mg PO BID 09/02/16 [History] Sevelamer [Renvela] 2,400 mg PO TIDWM 09/02/16 [History] Acetaminophen/Chlorpheniramine [Coricidin Hbp Cold & Flu Tab] 2 tab PO BID PRN 09/19/16 [History] Albuterol Neb [Proventil Neb] 2.5 mg IH BID PRN 09/19/16 [History] Budesonide/Formoterol 160/4.5 [Symbicort 160/4.5] 2 puff IH Q12H 09/19/16 [ History] Furosemide [Lasix] 40 mg PO DAILY 09/19/16 [History] Pantoprazole Sodium [Protonix] 40 mg PO DAILY 09/19/16 [History] Simvastatin [Zocor] 5 mg PO HS 09/19/16 [History] Valsartan [Diovan] 80 mg PO BID 09/19/16 [History] Amlodipine [Norvasc] 5 mg PO BID 10/26/16 [History] Terazosin [Hytrin] 1 mg PO DAILY 10/26/16 [History] Allergies/Adverse Reactions: Allergies morphine Allergy (Verified 09/19/16 05:43) See Comments Procedures/tests Complete & Pending: Procedures Performed prior 72 hours Category Date Time Status US liver [US] Routine Exams 10/27/16 17:00 Taken Date of admission: 10/26/16 16:53 [facility] care physician[facility] Consults: 10/26/16 17:15 Consult to Nephrology [CONS] Routine Consulting Provider: [facility]WANT Reason for Consult: For resumption of hemodialysis Call Completed: No 10/26/16 17:22 Consult to Gastroenterology [CONS] Routine Consulting Provider: Gastroenterology Rae Reason for Consult: Patient with fib on apixaban, symptomatic anemia, positive occult stool, pls evaluate for colonoscopy/EGD. Call Completed: No Discharging clinician: Demetria Cevallos Anticipated date of discharge: 10/27/16 - Patient Status Disposition: Home, Self-Care Condition: Good Functional capacity at discharge: independent ambulation Overall status at discharge: patient is not back to baseline - Discharge Instructions Instructions: Anemia (GEN) Follow Up With: [facility] [Primary Care Provider] - (Please follow up with [facility] 7-10 days. ) Additional Instructions: Avoid ASA, NSAIDs; present to ER for further episodes of melena/hematochezia/ hematemesis; high risk for GI bleed due to Eliquis; - Diet and Activity Activity: resume usual activities as tolerated Diet: diabetic diet, low fat, low cholesterol, low salt diet, other (renal) Hospital course: Mr. Lorenzana is a 70 year old male with history of end-stage renal disease on hemodialysis and multiple other medical problems was sent by his primary care provider for possible blood transfusion for acute on chronic anemia. Patient reported no other complaints since admission except a few day history of intermittent melena. Since admission, he has been very clear regarding his goals of care and reinforcing that he wishes to be DNR/DNI and would just like to be left to in the event of any complications; he also continues to chew tobacco while in the hospital and thinks it can cause him no harm at this time. He was noted to have acute on chronic anemia and received 2 units of PRBC transfusion with improvement in hemoglobin. Stool occult blood test was positive and patient is noted to be on [employer] anticoagulation with Eliquis, for atrial fibrillation. GI has been consulted and recommended EGD and colonoscopy to look for a source of GI bleed to explain his anemia. He is also noted to have thrombocytopenia and coagulopathy with elevated PT/INR and recommended liver ultrasound to assess for cirrhosis. After a long and detailed discussion regarding the risks and benefits of having these procedures done, he refused to proceed with EGD and colonoscopy and agrees only for the liver ultrasound after which he demanded to be discharged. He understands that he is at risk for continued bleeding due to being on anticoagulation; he is also at risk for stroke without anticoagulation given his multiple other risk factors. It is difficult to assess which one would affect his functional status more. At this time, he is being discharged home with recommendation to follow-up with his primary care provider and associate manager to further follow up on these issues. He is medically stable at this time. He is also strongly recommended to present to the emergency room in the event of melena, hematochezia, generalized weakness or shortness of breath. - Time Spent with Patient Total time spent providing and/or coordinating discharge services: - Constitutional Vitals: Temp Pulse Resp BP Pulse Ox 98.0 F 82 18 144/68 91 L 10/27/16 16:15 10/27/16 16:15 10/27/16 16:15 10/27/16 16:15 10/27/16 16:15 General appearance: Present: A&O X 3, answers questions appropriately - Respiratory Respiratory exam: Present: CTAB. Absent: accessory muscle use, rales, rhonchi, wheezes - Cardiovascular Cardiovascular exam: Present: irregular rhythm, +S1, +S2. Absent: diastolic murmur, gallop, rubs, systolic murmur
--- NOTE | 2016-10-28 09:28 | Physician Discharge Referral ---
Home Health/Hosp Referral Info Transfer to: Home Health Attending Provider: Demetria Cevallos Provider in Charge Post Discharge: PCP - Diagnosis (1) Anemia Priority: Primary Status: Acute (2) Atrial fibrillation Priority: Secondary Status: Chronic (3) Diabetes mellitus, type 2 Priority: Secondary Status: Chronic (4) ESRD (end stage renal disease) Priority: Secondary Status: Chronic (5) Essential hypertension Priority: Secondary Status: Chronic (6) Anemia of chronic disease Priority: Secondary Status: Chronic (7) CAD (coronary artery disease) Priority: Secondary Status: Chronic - Respiratory Orders Smoking Cessation: Smoking cessation has been advised. For more information, call the [place] Tobacco Quit Line at 5-229-BTDR-NOW. - Diet/Nutrition Diet/Nutrition Orders: No Added Salt (CRISTAL), Renal, Cardiac, No Concentrated Sweets (diabetic) - Activity Activity Orders: Ambulate - Services Needed Following services are medically necessary services: Nursing, Physical Therapy, Occupational Therapy - Transfer Medications Home Medications: Albuterol Sulfate [Albuterol Inhaler] 2 puff IH QID PRN 09/02/16 [History] Apixaban [Eliquis] 5 mg PO BID 09/02/16 [History] Calcium Acetate [Phos-LO] 1,334 mg PO TID 09/02/16 [History] Carvedilol [Coreg] 6.25 mg PO BIDWM 09/02/16 [History] Gabapentin [Neurontin] 300 mg PO DAILY 09/02/16 [History] Isosorbide MONOnitrate (24 HR) [Imdur] 30 mg PO DAILY 09/02/16 [History] Multivitamin [Multivitamins] 1 tab PO DAILY 09/02/16 [History] Ondansetron ODT [Zofran ODT] 4 mg SL Q6H PRN 09/02/16 [History] Oxycodone HCl 10 mg PO BID 09/02/16 [History] Sevelamer [Renvela] 2,400 mg PO TIDWM 09/02/16 [History] Acetaminophen/Chlorpheniramine [Coricidin Hbp Cold & Flu Tab] 2 tab PO BID PRN 09/19/16 [History] Albuterol Neb [Proventil Neb] 2.5 mg IH BID PRN 09/19/16 [History] Budesonide/Formoterol 160/4.5 [Symbicort 160/4.5] 2 puff IH Q12H 09/19/16 [ History] Furosemide [Lasix] 40 mg PO DAILY 09/19/16 [History] Pantoprazole Sodium [Protonix] 40 mg PO DAILY 09/19/16 [History] Simvastatin [Zocor] 5 mg PO HS 09/19/16 [History] Valsartan [Diovan] 80 mg PO BID 09/19/16 [History] Amlodipine [Norvasc] 5 mg PO BID 10/26/16 [History] Terazosin [Hytrin] 1 mg PO DAILY 10/26/16 [History] Allergies/Adverse Reactions: Allergies morphine Allergy (Verified 09/19/16 05:43) See Comments Certification: Further, I certify that my clinical findings support that this patient is homebound (i.e. absences from home require considerable and taxing effort and are for medical reasons or mu-ism services or infrequently or short duration when for other reasons) because: Homebound Reason: Leaving home requires considerable and taxing effort due to condition Attestation: My signature below is to certify that this patient is under my care and that I, or nurse practitioner, or a physician's oceanographer assistant working with me, has a face-to -face encounter with this patient.
== END 2016-10-27 19:05 | disposition home or self-care (01) | DRG 811 ==
LOC: EMEROO 13:27 → 2ANU 16:53
PROVIDERS: ADMIT Internal Medicine; ATTEND Internal Medicine

== ENCOUNTER 2017-01-19 13:34 | Inpatient (IN) ==
[2017-01-19] MEDS ORDERED: *HR* Dextrose 50 % in Water (Syg) 50 ML SYRINGE IVP ONE (13:39)
[2017-01-19] MEDS ORDERED: Insulin Human Regular 10 UNIT in 0.9 % Sodium Chloride 10 ML IV ONE (13:39)
--- NOTE | 2017-01-19 13:55 | Emergency Department Note ---
Disposition Clinical Impression: Hyperkalemia, End stage renal disease, Bradycardia, Weakness Disposition: Admitted As Inpatient Condition: Fair [facility]errals: [facility] [Primary Care Provider] - Forms: ED Satisfaction Letter General Adult HPI - General Chief complaint: ED Recheck/Abnormal Lab/Rx Stated complaint: Bradycardia, Elevated K+ Time Seen by Provider: 01/19/17 13:39 Source: EMS Limitations: no limitations Nursing Notes Reviewed: Yes Vital Signs Reviewed: Yes - History of Present Illness HPI Narrative: Patient does have history of end-stage renal disease and I did see him immediately upon arrival and also spoke with the paramedics the patient was sent here from the [facility] and the story is that he has weakness for the last several days which is intermittent and no medications specifically use. Does have associated lightheadedness. He missed his dialysis yesterday so last dialysis was 3 days ago, at the [facility] his potassium was elevated at 5.9. No medications have yet been administered. The patient denies any pain in the head , neck, chest, abdomen or back. No fevers. Social history: No smoking or alcohol Pain Scale: 10 - Related Data Home Medications Medication Instructions Recorded Confirmed Albuterol Sulfate [Albuterol 2 puff IH QID PRN 09/02/16 01/19/17 Inhaler] Apixaban [Eliquis] 5 mg PO BID 09/02/16 01/19/17 Calcium Acetate [Phos-LO] 1,334 mg PO TID 09/02/16 01/19/17 Carvedilol [Coreg] 6.25 mg PO BIDWM 09/02/16 01/19/17 Gabapentin [Neurontin] 300 mg PO DAILY 09/02/16 01/19/17 Isosorbide MONOnitrate (24 HR) 30 mg PO DAILY 09/02/16 01/19/17 [Imdur] Multivitamin [Multivitamins] 1 tab PO DAILY 09/02/16 01/19/17 Ondansetron ODT [Zofran ODT] 4 mg SL Q6H PRN 09/02/16 01/19/17 Oxycodone HCl 10 mg PO BID 09/02/16 01/19/17 Sevelamer [Renvela] 2,400 mg PO TIDWM 09/02/16 01/19/17 Acetaminophen/Chlorpheniramine 2 tab PO BID PRN 09/19/16 01/19/17 [Coricidin Hbp Cold & Flu Tab] Albuterol Neb [Proventil Neb] 2.5 mg IH BID PRN 09/19/16 01/19/17 Budesonide/Formoterol 160/4.5 2 puff IH Q12H 09/19/16 01/19/17 [Symbicort 160/4.5] Furosemide [Lasix] 40 mg PO DAILY 09/19/16 01/19/17 Pantoprazole Sodium [Protonix] 40 mg PO DAILY 09/19/16 01/19/17 Simvastatin [Zocor] 5 mg PO HS 09/19/16 01/19/17 Valsartan [Diovan] 80 mg PO BID 09/19/16 01/19/17 Amlodipine [Norvasc] 5 mg PO BID 10/26/16 01/19/17 Terazosin [Hytrin] 1 mg PO DAILY 10/26/16 01/19/17 Allergies Allergy/AdvReac Type Severity Reaction Status Date / Time morphine Allergy See Verified 09/19/16 05:43 Comments Review of Systems: Constitutional: No fever Vision: No blurred vision ENT: No rhinorrhea Respiratory: No cough Allergic: No allergies : No blood in urine GI: No blood in stool Hematologic: No bruising Dermatologic: No skin rash Musculoskeletal: No pain in the extremities Neuro: No numbness of the extremities Past Medical History - Past Medical History Medical history: Reports: atrial fibrillation, COPD, coronary artery disease, CVA, diabetes, dialysis, hyperlipidemia, hypertension, myocardial infarction, renal disease Surgical history: Reports: coronary bypass (CABG), other Psychiatric history: Reports: no psych history - Social History Smoking Status: Never smoker Smokeless Tobacco Status: No Alcohol use: Reports: none Drug use: Reports: none Physical Exam CONSTITUTIONAL: Alert and oriented X3, well-nourished, well appearing, in no apparent distress HEAD: Normocephalic; atraumatic. EYES: PERRL, no scleral icterus. NOSE: The nose is normal in appearance without rhinorrhea RESP: Normal chest excursion with respiration; breath sounds clear and equal bilaterally; no wheezes, rhonchi, or rales CARD: Regular rhythm, without murmurs, rub or gallop ABD: Non-distended; non-tender, soft,without rigidity, rebound or guarding SKIN: Normal for age and race; warm and dry; no apparent lesions extremities: Left leg below the knee amputation - General Limitations: no limitations General appearance: alert, in no apparent distress Course Vital Signs Temperature 0 F L 01/19/17 13:38 Pulse Rate 36 01/19/17 13:38 Respiratory Rate 17 01/19/17 13:38 Blood Pressure 131/60 01/19/17 13:38 O2 Sat by Pulse Oximetry 91 01/19/17 13:38 Temperature 0 F L 01/19/17 15:22 Pulse Rate 36 01/19/17 13:38 Respiratory Rate 18 01/19/17 15:22 Blood Pressure 154/56 01/19/17 15:22 O2 Sat by Pulse Oximetry 96 01/19/17 14:29 Oxygen Delivery Oxygen Delivery Nasal Cannula Medical Decision Making - MDM Narrative Medical decision making narrative: I did review the patiens record from the [facility] and the patient will receive calcium , insulin and dextrose, bicarbonate and I will discuss further with nephrology about arranging emergent dialysis. I did review the records from the [facility]. [id number] - Medical Records Medical records reviewed: Yes I reviewed the patient's medical records. - Lab Data Lab results reviewed: Yes I reviewed the patient's lab results. Critical Care Time Critical Care Time: Yes Total Critical Care Time: 35 Attestation: Critical care time 35 minutes spent in a patient with critical bradycardia secondary to severe life-threatening hyperkalemia in a patient who has end- stage renal disease who has missed her dialysis and management of hyperkalemia, bradycardia, relative hypotension
--- NOTE | 2017-01-19 18:10 | Internal Med History&Physical ---
Date of Encounter: 01/19/17 Time of Encounter: 18:06 Assessment and Plan (1) ESRD (end stage renal disease) Current visit: No Status: Chronic he missed HD yesterday due to not feeling well. potassium was 7.2 at [facility], has no respiratory distress, Dr. Pino has been consulted and will be dialysed today. (2) Essential hypertension Current visit: No Status: Chronic BP borderline and bradycardic, however its sinus rhythm, as per the patinet and the family, his HR is always high 40s to 50s. will continue to monitor. (3) Anemia of chronic disease Current visit: No Status: Chronic last hb was 8.3 , he refused EGD and colonoscopy on his last admission when his stool occult was positive on 10/26/16. repeat blood owrk today at [facility] shows hb of 10. (4) Diabetes mellitus, type 2 Current visit: No Status: Chronic Qualifiers: Diabetes mellitus complication status: with kidney complications Diabetes mellitus complication detail: with chronic kidney disease Diabetes mellitus fdc insulin use: without fdc use Chronic kidney disease stage: on chronic dialysis Qualified Code(s): E11.22 - Type 2 diabetes mellitus with diabetic chronic kidney disease; N18.6 - End stage renal disease; Z99.2 - Dependence on renal dialysis (5) PAF (paroxysmal atrial fibrillation) Current visit: No Status: Chronic not in RVR, his anti coagulation was continued on his last admission and he is aware that he is high risk for bleeding. (6) Hyperkalemia Current visit: Yes Status: Acute k+ noted to be 7.2 at [facility]. has been given insulin and dextrose at ED with sidum bicarb and is getting HD today. recheck chem 7 after that. (7) Hypothermia Current visit: Yes Status: Acute was noted to be hypothermic, was given bear hugger but repeat rectal temp is 93.9 in the setting of bradycardia and hypothermia, will transfer the patient to [facility] for further management. Qualifiers: Encounter type: initial encounter Qualified Code(s): T68.XXXA - Hypothermia , initial encounter Internal Medicine - H&P: HPI Chief complaint: weakness and dizziness Admitted From: Home Plans for Post Hospital Care: Home History of present illness: Mr. Lorenzana is a 71 year old male with history of end-stage renal disease presented with weakness for the last several days, Does have associated lightheadedness. He missed his dialysis yesterday so last dialysis was 3 days ago, at the [facility] his potassium was elevated at 5.9 and was thus sent here. HE follows with DR. Pino. The patient denies any pain in the head, neck, chest, abdomen or back. No fevers. as per the , he went for dialysis yesterday. But walked back out without the treatment because he said he was not feeling okay. he says he has constant headaches and nausea, however no vomiting or diarrhea as per the , he has never missed his HD in the last 5 yrs. he denies any chest pain or sob or leg swelling. he says that his BP normally runs low at high 40s to 50s. Past Med Surg Social Fam HX - Past Medical History Medical history: atrial fibrillation, COPD, coronary artery disease, CVA, diabetes, dialysis, hyperlipidemia, hypertension, myocardial infarction, renal disease Psychiatric history: no psych history - Past Surgical History Surgical History: coronary bypass (CABG), other - Social History Smoking Status: Never smoker Smokeless Tobacco Status: No Alcohol use: none Drug use: none - Family History Mother Hx Family Cardiac Disorders: Yes Hx Family Respiratory Disorders: No Hx Family Cancer: No Hx Family GI Disorders: No Hx Family Endocrine Disorder: No Hx Family Neuromuscular Disorders: No Hx Family Neurologic Disorders: No Hx Family HEENT Disorders: No Hx Family Autoimmune Disorders: No Internal Medicine - H&P: Meds Albuterol Sulfate [Albuterol Inhaler] 2 puff IH QID PRN 09/02/16 [History] Apixaban [Eliquis] 5 mg PO BID 09/02/16 [History] Calcium Acetate [Phos-LO] 1,334 mg PO TID 09/02/16 [History] Carvedilol [Coreg] 6.25 mg PO BIDWM 09/02/16 [History] Gabapentin [Neurontin] 300 mg PO DAILY 09/02/16 [History] Isosorbide MONOnitrate (24 HR) [Imdur] 30 mg PO DAILY 09/02/16 [History] Multivitamin [Multivitamins] 1 tab PO DAILY 09/02/16 [History] Ondansetron ODT [Zofran ODT] 4 mg SL Q6H PRN 09/02/16 [History] Oxycodone HCl 10 mg PO BID 09/02/16 [History] Sevelamer [Renvela] 2,400 mg PO TIDWM 09/02/16 [History] Acetaminophen/Chlorpheniramine [Coricidin Hbp Cold & Flu Tab] 2 tab PO BID PRN 09/19/16 [History] Albuterol Neb [Proventil Neb] 2.5 mg IH BID PRN 09/19/16 [History] Budesonide/Formoterol 160/4.5 [Symbicort 160/4.5] 2 puff IH Q12H 09/19/16 [ History] Furosemide [Lasix] 40 mg PO DAILY 09/19/16 [History] Pantoprazole Sodium [Protonix] 40 mg PO DAILY 09/19/16 [History] Simvastatin [Zocor] 5 mg PO HS 09/19/16 [History] Valsartan [Diovan] 80 mg PO BID 09/19/16 [History] Amlodipine [Norvasc] 5 mg PO BID 10/26/16 [History] Terazosin [Hytrin] 1 mg PO DAILY 10/26/16 [History] Allergies morphine Allergy (Verified 09/19/16 05:43) See Comments All Systems PM: A 10-system review of systems was performed and is negative for pertinent findings except as documented above in the HPI. - Constitutional Vitals: Temp Pulse Resp BP Pulse Ox 94.5 F L 42 18 106/42 91 01/19/17 16:24 01/19/17 16:24 01/19/17 16:24 01/19/17 16:24 01/19/17 16:24 General appearance: Present: A&O X 3, no acute distress Exam: HEAD: Normocephalic; atraumatic. EYES: PERRL, no scleral icterus. RESP: Normal chest excursion with respiration; breath sounds clear and equal bilaterally; no wheezes, rhonchi, or rales CARD: Regular rhythm, without murmurs, rub or gallop ABD: Non-distended; non-tender, soft,without rigidity, rebound or guarding SKIN: Normal for age and race; warm and dry; no apparent lesions extremities: Left leg below the knee amputation, no swelling.
[2017-01-19] MEDS ORDERED: Naloxone 0.4 MG/ML INJ IVP PRN (18:24)
[2017-01-19] MEDS ORDERED: 0.9 % Sodium Chloride 250 ML IVC PRN (18:54)
[2017-01-19] MEDS ORDERED: 0.9 % Sodium Chloride 1,000 ML PRIME SCH (19:15)
[2017-01-19] MEDS ORDERED: 0.9 % Sodium Chloride 2,000 ML ONE (20:58)
[2017-01-19 21:17] LABS: Hepatitis B Surface Antigen Nonreactive (Nonreactive)
[2017-01-19] MEDS: Budesonide/Formoterol 160/4.5 MDI IH SCH (22:14)
[2017-01-20] MEDS: Calcium Acetate 667 MG CAPSULE PO SCH ×4 (00:12→21:44)
[2017-01-20] MEDS: APIXABAN 5 MG TABLET PO SCH ×3 (00:14→21:35)
[2017-01-20] MEDS: amLODIPine 5 MG TABLET PO SCH ×3 (00:14→21:35)
[2017-01-20 05:15] LABS: Basophils % 0.3 %; Hemoglobin 9.1 g/dL (12.9-16.9); Mean Platelet Volume 12.2 fL (9.4-12.4); Red Blood Count 2.84 M/mcL (4.19-5.50)
[2017-01-20 05:16] LABS: Eosinophils # 0.4 K/mcL (0.0-0.6); Eosinophils % 6.3 %; Hematocrit 27.9 % (37.5-50.1); Immature Granulocytes % 0.3 % (0-4); Immature Platelets 8.6 % (1.1-6.1); Lymphocytes # 0.7 K/mcL (0.6-4.6); Lymphocytes % 9.8 %; Mean Corpuscular HGB Conc 32.6 g/dL (31.6-35.5); Mean Corpuscular Volume 98.2 fL (83.0-100.0); Monocytes # 0.6 K/mcL (0.0-1.3); Monocytes % 8.3 %; Neutrophils # 5.1 K/mcL (1.6-8.9); Red Cell Distribution Width 14.8 % (11.5-14.5)
[2017-01-20 05:17] LABS: Platelet Count 52 K/mcL (140-400)
[2017-01-20 05:25] LABS: Calcium 8.5 mg/dL (8.6-10.8); Magnesium 1.7 mg/dL (1.6-2.6); Phosphorous 5.9 mg/dL (2.3-4.7); Potassium 5.8 mEq/L (3.5-4.5)
[2017-01-20] MEDS: Isosorbide MONOnitrate (24 HR) 30 MG TAB.ER.24H PO SCH (08:10)
[2017-01-20] MEDS: Budesonide/Formoterol 160/4.5 MDI IH SCH ×2 (08:26→20:17)
--- NOTE | 2017-01-20 09:56 | Nephrology Consult Note ---
Date of Encounter: 01/20/17 Time of Encounter: 09:53 Assessment and Plan (1) ESRD (end stage renal disease) Current Visit: No Status: Chronic Patient has end-stage renal disease. He was admitted yesterday with hyperkalemia weakness and falling. Also had associated bradycardia. He underwent urgent dialysis yesterday. Today's potassium is down to 5.8. Heart rate is ranging from 55-66. Patient will undergo his dialysis again tomorrow. He is stable from a volume perspective. Hemoglobin is 9.1. He will be maintained on Aranesp. (2) Hyperkalemia Current Visit: No Status: Resolved (3) Atrial fibrillation Current Visit: No Status: Chronic Qualifiers: Atrial fibrillation type: paroxysmal Qualified Code(s): I48.0 - Paroxysmal atrial fibrillation History of Present Illness - History of Present Illness This is a 71-year-old male with end-stage renal disease. He receives dialysis in [place] every Monday. Patient missed dialysis this past Monday. He missed dialysis again yesterday. He said he had not been feeling well. Patient fell at home. [place] Patient was noted be hyperkalemic. He also was noted to be bradycardic. He subsequently was transferred to [place] and admitted to the hospital. Patient underwent urgent dialysis last evening. His potassium was 7.2. This morning his potassium is 5.8. Patient says overall he does not feel well but he does not give any specific complaints. He says his breathing is been okay. He denies any chest pain. His appetite is only been fair. Overall the patient has had a progressive decline and become more and more debilitated over the past several months or so. Past Med Surg Social Fam HX - Past Medical History Medical history: atrial fibrillation, COPD, coronary artery disease, CVA, diabetes, dialysis, hyperlipidemia, hypertension, myocardial infarction, renal disease Psychiatric history: no psych history - Past Surgical History Surgical History: coronary bypass (CABG), other - Social History Smoking Status: Never smoker Smokeless Tobacco Status: No Alcohol use: none Drug use: none - Family History Mother Hx Family Cardiac Disorders: Yes Hx Family Respiratory Disorders: No Hx Family Cancer: No Hx Family GI Disorders: No Hx Family Endocrine Disorder: No Hx Family Neuromuscular Disorders: No Hx Family Neurologic Disorders: No Hx Family HEENT Disorders: No Hx Family Autoimmune Disorders: No Medications and Allergies Albuterol Sulfate [Albuterol Inhaler] 2 puff IH QID PRN 09/02/16 [History] Apixaban [Eliquis] 5 mg PO BID 09/02/16 [History] Calcium Acetate [Phos-LO] 1,334 mg PO TID 09/02/16 [History] Carvedilol [Coreg] 6.25 mg PO BIDWM 09/02/16 [History] Gabapentin [Neurontin] 300 mg PO DAILY 09/02/16 [History] Isosorbide MONOnitrate (24 HR) [Imdur] 30 mg PO DAILY 09/02/16 [History] Multivitamin [Multivitamins] 1 tab PO DAILY 09/02/16 [History] Ondansetron ODT [Zofran ODT] 4 mg SL Q6H PRN 09/02/16 [History] Oxycodone HCl 10 mg PO BID 09/02/16 [History] Sevelamer [Renvela] 2,400 mg PO TIDWM 09/02/16 [History] Acetaminophen/Chlorpheniramine [Coricidin Hbp Cold & Flu Tab] 2 tab PO BID PRN 09/19/16 [History] Albuterol Neb [Proventil Neb] 2.5 mg IH BID PRN 09/19/16 [History] Budesonide/Formoterol 160/4.5 [Symbicort 160/4.5] 2 puff IH Q12H 09/19/16 [ History] Furosemide [Lasix] 40 mg PO DAILY 09/19/16 [History] Pantoprazole Sodium [Protonix] 40 mg PO DAILY 09/19/16 [History] Simvastatin [Zocor] 5 mg PO HS 09/19/16 [History] Valsartan [Diovan] 80 mg PO BID 09/19/16 [History] Amlodipine [Norvasc] 5 mg PO BID 10/26/16 [History] Terazosin [Hytrin] 1 mg PO DAILY 10/26/16 [History] Allergies morphine Allergy (Verified 09/19/16 05:43) See Comments Review of Systems Constitutional: as per HPI, weakness Eyes: bilateral: blurred vision (patient denies), diplopia (patient denies) Nose, mouth and throat: no dizziness, no headache(s) Cardiovascular: dyspnea on exertion, irregular heart rhythm Respiratory: dyspnea on exertion Gastrointestinal: no abdominal pain, no change in bowel habits Musculoskeletal: back pain, no muscle weakness, no numbness Integumentary: no hirsutism, no striae Neurological: weakness Psychiatric: no depression, no difficulty concentrating Endocrine: as per HPI Exam - Vital Signs Vital signs: Initial Vital Signs Temp Pulse Resp BP Pulse Ox 0 F L 36 17 131/60 91 01/19/17 13:38 01/19/17 13:38 01/19/17 13:38 01/19/17 13:38 01/19/17 13:38 Vital Signs - Last 8 Hours Temp Pulse Resp BP Pulse Ox 01/20/17 08:31 16 97 01/20/17 08:17 71 98 01/20/17 07:34 98.4 F 70 18 149/69 97 01/20/17 03:33 98.3 F 65 20 132/88 95 Intake and Output 01/19/17 01/20/17 01/20/17 23:59 07:59 15:59 Intake Total 600 / 600 Output Total 1675 / 1675 Balance -1075 / -1075 Intake: Oral 0 / 0 Intake, Rinseback and 600 / 600 Flushes Output: Urine 75 / 75 Total Dialysis Output 1600 / 1600 Other: Weight 71.5 kg 71.5 kg Blood Glucose* 218 140 Hemodialysis Net Fluid 1kg Removed (mL) Patient Weight 01/20/17 23:59 Weight 71.5 kg - General Appearance Exam: Patient is alert and oriented. He is in no acute distress. Appears chronically ill. Neck is supple. Lungsbreath sounds otherwise clear. Heart irregular rate and rhythm consistent with atrial fibrillation. Heart rate is ranging from 55-66 on the youth nutritional monitor. Abdomen shows normal bowel sounds bruits masses or megaly or tenderness. The patient has no peripheral edema. He is status post left below-knee amputation. There is a functioning AV fistula in the left arm. Results - Lab Results 01/20/17 04:58 01/20/17 04:58 Most recent lab results Calcium 8.5 mg/dL (8.6-10.8) L 01/20/17 04:58 Phosphorus 5.9 mg/dL (2.3-4.7) H 01/20/17 04:58 Magnesium 1.7 mg/dL (1.6-2.6) 01/20/17 04:58 Consult Discharge Plan - Plan Referrals: RAGHAVENDRA,PCP [Primary Care Provider] - 01/27/17 12:30 pm
--- NOTE | 2017-01-20 13:25 | Internal Med Progress Note ---
Date of Encounter: 01/20/17 Time of Encounter: 09:00 - Assessment and plan (1) Bradycardia Current Visit: Yes Status: Acute Assessment and plan: Pt was on betablocker for A Fib rate control. Bradycardia improved after hold beta michelle. Will decrease dose of carvedilol, continue closely monitoring. (2) Weakness Current Visit: Yes Status: Acute Assessment and plan: Etiology is undetermined, possibly multifactoral. No signs of acute infection. Continue supportive management. Pt/OT evaluation. (3) Essential hypertension Current Visit: No Status: Chronic Assessment and plan: Continue home medications. (4) Anemia of chronic disease Current Visit: No Status: Chronic Assessment and plan: Hgb is stable. (5) Atrial fibrillation Current Visit: No Status: Chronic Assessment and plan: Rate is controlled (bradycardia initially). On eliquis for anticoagulation. Qualifiers: Atrial fibrillation type: paroxysmal Qualified Code(s): I48.0 - Paroxysmal atrial fibrillation (6) Hyperkalemia Current Visit: Yes Status: Acute Assessment and plan: Due to ESRD. On HD. F/U potassium level. (7) End stage renal disease Current Visit: Yes Status: Acute Assessment and plan: On HD. Nephrology on case. (8) DVT prophylaxis Current Visit: No Status: Acute Assessment and plan: Pt is on eliquis. - Time Spent With Patient 25 - 35 minutes - Subjective Interval history: Patient is a 71-year-old male admitted for general weakness and hyperkalemia. he past medical history is sgnificant for A. fib Humphrey COPD, CAD,end-stage renal disease on hemodialysis. Patient was seen and examined. He is awake alert , still weak. bradycardia has impoved after holding beta michelle. Hyperkalemia improved after HD. Nephrology on case. Vitals stable. Decrease carvedilol to 3.125mg po bid. Continue closely monitoring pt in tele. - Constitutional Vitals: Temp Pulse Resp BP Pulse Ox 98.2 F 74 17 120/55 95 01/20/17 11:38 01/20/17 11:38 01/20/17 11:38 01/20/17 11:38 01/20/17 11:38 General appearance: Present: A&O X 3, no acute distress - Head Head exam: Present: atraumatic, normocephalic - Eye Eye exam: Present: PERRL, conjuntiva pink, sclera anicteric Pupils: Present: PERRL - Neck Neck exam general surgery: Present: supple, trachea midline. Absent: lymphadenopathy - Respiratory Respiratory exam: Present: CTAB. Absent: accessory muscle use, rales, rhonchi, wheezes - Cardiovascular Cardiovascular exam: Present: RRR, +S1, +S2. Absent: diastolic murmur, gallop, rubs, systolic murmur - GI/Abdominal GI/Abdominal exam: Present: normal bowel sounds, soft, no peritoneal signs. Absent: distended, tenderness - Extremities Exam Extremities exam: Present: warm, radial pulses palpable and symetrical. Absent : calf tenderness, cyanotic, pedal edema Additional comments: Left BKA. - Neurological Exam Neurological exam: Present: CN II-XII intact, oriented X3, no focal deficits. Absent: pronater drift, facial droop, speech deficit - Skin Skin exam: Present: dry, intact Internal Medicine: Result - Labs CBC & Chem 7: 01/20/17 04:58 01/20/17 04:58 Labs: Short CBC 01/20/17 Range/Units 04:58 WBC 6.8 (4.3-11.1) K/mcL Hgb 9.1 L (12.9-16.9) g/dL Hct 27.9 L (37.5-50.1) % Plt Count 52 L (140-400) K/mcL Neutrophils # 5.1 (1.6-8.9) K/mcL BMP 01/20/17 04:58 Sodium 136 Potassium 5.8 H Chloride 98 Carbon Dioxide 29 BUN 50 H Creatinine 7.21 H Glucose 247 H Calcium 8.5 L Consult Discharge Plan - Plan [facility]errals: [facility] [[facility] Care Provider[facility] - 01/27/17 12:30 pm
[2017-01-20] MEDS: *HR* OxyCODONE Immed Rel 5 MG TABLET PO SCH ×2 (14:10→21:35)
[2017-01-20] MEDS: Valsartan 80 MG TABLET PO SCH (21:35)
[2017-01-21] MEDS ORDERED: 0.9 % Sodium Chloride 250 ML IVC PRN (08:30)
--- NOTE | 2017-01-21 08:32 | Nephrology Progress Note ---
Date of Encounter: 01/21/17 Time of Encounter: 08:29 - Assessment and Plan (1) ESRD (end stage renal disease) Current Visit: No Status: Chronic The patient will undergo dialysis today. He will then be maintained on his regular scheduled dialysis every Monday. He will be dialyzed on a 2K bath. (2) Hyperkalemia Current Visit: No Status: Resolved (3) Atrial fibrillation Current Visit: No Status: Chronic Qualifiers: Atrial fibrillation type: paroxysmal Qualified Code(s): I48.0 - Paroxysmal atrial fibrillation Subjective Interval history: Patient reports she is feeling better today. He is sitting on the edge of the bed eating breakfast. Potassium yesterday was 5.8. Heart rate is in the mid 60s. Objective - Vital Signs Vital signs: Vital Signs Temp Pulse Resp BP Pulse Ox 01/21/17 07:00 97.8 F 66 18 147/77 96 01/21/17 03:35 97.7 F 61 18 164/68 100 01/20/17 23:39 98.3 F 68 18 134/61 94 01/20/17 20:36 98 F 71 18 148/70 95 01/20/17 15:26 97.5 F L 66 16 135/64 94 01/20/17 11:38 98.2 F 74 17 120/55 95 01/20/17 10:49 98.5 F 67 16 142/65 100 01/20/17 08:31 16 97 Intake and Output 01/20/17 01/21/17 01/21/17 23:59 07:59 15:59 Intake Total 240 / 240 0 / 0 Output Total 0 / 0 Balance 240 / 240 0 / 0 Intake: Oral 240 / 240 0 / 0 Output: Urine 0 / 0 Other: Meal Dinner Percent of Meal Consumed 100% Weight 70.5 kg Blood Glucose* 190 Patient Weight 01/21/17 23:59 Weight 70.5 kg - General Appearance Exam: Patient is alert and oriented. He is in no acute distress. Lung sounds. Heart irregular rate and rhythm consistent with atrial fibrillation. Abdomen is benign. There is no peripheral edema. Patient is status post left BKA. There is a functioning AV fistula in the left arm. - Lab 01/20/17 04:58 01/20/17 04:58 Most recent lab results Calcium 8.5 mg/dL (8.6-10.8) L 04/14/17 04:58 Phosphorus 5.9 mg/dL (2.3-4.7) H 01/20/17 04:58 Magnesium 1.7 mg/dL (1.6-2.6) 01/20/17 04:58 Consult Discharge Plan - Plan Referrals: RAGHAVENDRAPCP [Primary Care Provider] - 01/27/17 12:30 pm
[2017-01-21] MEDS: Calcium Acetate 667 MG CAPSULE PO SCH ×3 (09:16→21:15)
[2017-01-21] MEDS: amLODIPine 5 MG TABLET PO SCH ×2 (09:16→21:12)
[2017-01-21] MEDS: Isosorbide MONOnitrate (24 HR) 30 MG TAB.ER.24H PO SCH (09:16)
[2017-01-21] MEDS: Valsartan 80 MG TABLET PO SCH ×2 (09:16→21:12)
[2017-01-21] MEDS: APIXABAN 5 MG TABLET PO SCH ×2 (09:16→21:12)
[2017-01-21] MEDS: *HR* OxyCODONE Immed Rel 5 MG TABLET PO SCH (09:17)
[2017-01-21] MEDS: Budesonide/Formoterol 160/4.5 MDI IH SCH ×2 (10:45→20:24)
[2017-01-21 10:47] LABS: Basophils % 0.2 %; Eosinophils # 0.5 K/mcL (0.0-0.6); Eosinophils % 7.9 %; Hematocrit 25.4 % (37.5-50.1); Hemoglobin 8.4 g/dL (12.9-16.9); Immature Granulocytes % 0.3 % (0-4); Lymphocytes # 0.9 K/mcL (0.6-4.6); Lymphocytes % 15.7 %; Mean Corpuscular HGB Conc 33.1 g/dL (31.6-35.5); Mean Corpuscular Hemoglobin 32.3 pg (28.0-33.3); Mean Corpuscular Volume 97.7 fL (83.0-100.0); Mean Platelet Volume 13.3 fL (9.4-12.4); Monocytes # 0.3 K/mcL (0.0-1.3); Monocytes % 5.1 %; Red Cell Distribution Width 14.8 % (11.5-14.5); Segmented Neutrophils % 70.8 %
[2017-01-21 10:48] LABS: Platelet Count 55 K/mcL (140-400)
[2017-01-21 11:02] LABS: Albumin 2.9 g/dL (3.5-5.0); Bilirubin,Total 0.6 mg/dL (0.2-1.2); Calcium 8.4 mg/dL (8.6-10.8); Globulin 2.9 g/dL (2.4-3.5); Total Protein 5.8 g/dL (6.0-8.3)
[2017-01-21] MEDS ORDERED: 0.9 % Sodium Chloride 2,000 ML ONE (13:22)
--- NOTE | 2017-01-21 14:17 | Internal Med Progress Note ---
<Remington Fontenot - Last Filed: 01/21/17 14:14> Date of Encounter: 01/21/17 Time of Encounter: 14:14 - Assessment and plan (1) Altered mental status, unspecified Current Visit: Yes Status: Acute Assessment and plan: Patient has altered mentation following dialysis today. Possibly a presyncopal event and hypotension given his description of near-syncope and dizziness. Additionally family states that confusion began today. His neuro exam other than confusion is benign. It is somewhat limited as cannot perform extraocular motions disease too confused or rapid alternating movements. However I cannot elicit any neurologic deficits on exam. No signs of infection on exam. Has a normal white count. He did receive some oxycodone today. This may be the cause however he is quite alert for this to be side effect from oxycodone. Will get a CT of the head to rule out any bleeding or neurologic event. If he develops focal symptoms may consider further testing with an MRI. We will hold any further Roxicodone and when we do resume it will recommend possibly lowering the dosage. He currently gets 10 mg twice a day scheduled. (2) Confusion Current Visit: Yes Status: Acute Assessment and plan: As stated above. (3) End stage renal disease Current Visit: Yes Status: Acute Assessment and plan: Nephrology following. Appreciate their assistance. (4) Hyperkalemia Current Visit: Yes Status: Acute (5) Status post below knee amputation of left lower extremity Current Visit: Yes Status: Acute (6) Peripheral artery disease Current Visit: Yes Status: Chronic (7) Generalized weakness Current Visit: Yes Status: Acute Assessment and plan: PT/OT consult and will need home health. (8) Thrombocytopenia Current Visit: Yes Status: Acute Assessment and plan: Platelets currently 52. Etiology unclear at this time. He does say that he is drinking quite heavily. May consider evaluation for cirrhosis. However no external stigmata of cirrhosis at this time. No indication for transfusion at this time. Transfuse if the hospital 10. This is chronic. (9) Bicytopenia Current Visit: Yes Status: Acute (10) Depression Current Visit: Yes Status: Acute Assessment and plan: Patient states he does not care anymore and wants to give up. This may be what is causing some of his confusion. Consider pseudodementia. However we will workup other causes first before adding any medication that might add confusion to the diagnosis. He denies any suicidal ideations. If workup is negative tomorrow we will consider adding possibly mirtazapine. (11) Atrial fibrillation Current Visit: Yes Status: Acute Assessment and plan: Currently rate controlled. On Eliquis (12) DVT prophylaxis Current Visit: Yes Status: Acute Assessment and plan: On eliquis - Subjective Interval history: This is a 71-year-old male that was admitted for severe hyperkalemia. He was transferred from the [place]. Since admission he is had some generalized weakness. He was also transferred to [facility] as he did have some hypothermia. Temperatures as low as 93 degrees Fahrenheit per rectum. He did improve and was transferred back to [facility] yesterday. Today he complains of confusion. He states that while at dialysis he would have dizziness and lightheadedness. He states that he felt like he almost passed out. He also complains of confusion. He states that he sometimes does not know where he has today. His family is present and states he has normal mentation at baseline and that he is quite confused today. He denies any visual disturbances however this is limited given the fact that he has very poor eyesight at baseline and is legally blind per patient. He denies any facial droop or slurred speech. Family denies any change in his speech. He denies any focal motor deficits denies any numbness or tingling. He does admit to a cough but denies a fever does admit to chills. He denies dysuria but also no longer makes urine. He denies any abdominal pain or diarrhea. No further complaints or concerns at this time. - Constitutional Vitals: Temp Pulse Resp BP Pulse Ox 98.3 F 66 20 122/49 96 01/21/17 12:31 01/21/17 07:00 01/21/17 12:31 01/21/17 12:31 01/21/17 07:00 Exam: General: This is a very pleasant well-developed well-nourished 71-year-old male he is lying in bed appears to be comfortable and in no acute distress at this time. He is alert but orientated to person. He does get confused about location and also about what is going on. Is in no acute distress at this time. HEENT: Head is normocephalic and atraumatic anicteric sclera, pupils are cloudy , he has too much confusion to follow cardinal gaze. Adnexa without mass or thyromegaly. Moist mucous membranes. Heart: Regular rate and rhythm without murmurs rubs or gallops. Lungs: He has normal effort of breathing speaks in full sentences. Clear to auscultation bilaterally. Abdomen: The abdomen is soft, nondistended, nontender to palpation. Musculoskeletal: Grossly normal for age no gross deformities noted. Extremities: There is no clubbing, cyanosis or edema. He does have a left the below the knee amputation with prosthesis in place. Integument: No rashes or lesions noted. Neuro exam: The patient is alert he stays awake during the entirety of the interview. However he is confused. His cranial nerves II through XII are grossly intact with the exception of the ocular nerves as he is too confused to follow cardinal edge of gaze and also has very poor vision. Muscle strength in the upper and lower extremity is normal bilaterally. He is a right-handed man. Muscle strength is somewhat limited as he has no left lower limb. Sensation is intact. Rapid alternating movements cannot be assessed because he could not understand this. Normal patellar reflex on the right. No clonus in the right leg. I did not observe him ambulate as he does not have the foot piece of his prosthesis on at this time. Internal Medicine: Result - Labs CBC & Chem 7: 01/21/17 10:15 01/21/17 10:15 Labs: Short CBC 01/21/17 Range/Units 10:15 WBC 5.7 (4.3-11.1) K/mcL Hgb 8.4 L (12.9-16.9) g/dL Hct 25.4 L (37.5-50.1) % Plt Count 55 L (140-400) K/mcL Neutrophils # 4.0 (1.6-8.9) K/mcL BMP 01/21/17 10:15 Sodium 138 Potassium 5.0 H Chloride 100 Carbon Dioxide 27 BUN 60 H Creatinine 7.26 H Glucose 180 H Calcium 8.4 L Liver Function 01/21/17 Range/Units 10:15 Total Bilirubin 0.6 (0.2-1.2) mg/dL AST 11 (5-34) Units/L ALT 10 (0-55) Units/L Alkaline Phosphatase 159 H (38-126) Units/L Albumin 2.9 L (3.5-5.0) g/dL Consult Discharge Plan - Plan [facility]errals: [facility] [Primary Care Provider[facility] - 01/27/17 12:30 pm <Timothy Marcum - Last Filed: 01/21/17 15:12> Date of Encounter: 01/21/17 - Constitutional Vitals: Temp Pulse Resp BP Pulse Ox 98.3 F 66 20 122/49 96 01/21/17 12:31 01/21/17 07:00 01/21/17 12:31 01/21/17 12:31 01/21/17 07:00 Internal Medicine: Result - Labs CBC & Chem 7: 01/21/17 10:15 01/21/17 10:15 Labs: Short CBC 01/21/17 Range/Units 10:15 WBC 5.7 (4.3-11.1) K/mcL Hgb 8.4 L (12.9-16.9) g/dL Hct 25.4 L (37.5-50.1) % Plt Count 55 L (140-400) K/mcL Neutrophils # 4.0 (1.6-8.9) K/mcL BMP 01/21/17 10:15 Sodium 138 Potassium 5.0 H Chloride 100 Carbon Dioxide 27 BUN 60 H Creatinine 7.26 H Glucose 180 H Calcium 8.4 L Liver Function 01/21/17 Range/Units 10:15 Total Bilirubin 0.6 (0.2-1.2) mg/dL AST 11 (5-34) Units/L ALT 10 (0-55) Units/L Alkaline Phosphatase 159 H (38-126) Units/L Albumin 2.9 L (3.5-5.0) g/dL - Attending Attestation I examined this patient and my medical decision-making was reviewed with the SALES RECRUITER/PA/Advanced Practice Nurse/Resident Physician. I agree with the documented findings, disposition and treatment plan as described except to the extent set forth below. Head CT. Nephro input noted. Agree with Dr. Jason.
[2017-01-21] MEDS ORDERED: Acetaminophen 325 MG TABLET PO PRN (14:25)
[2017-01-22 05:51] LABS: Hemoglobin 8.4 g/dL (12.9-16.9); Mean Platelet Volume 12.8 fL (9.4-12.4)
[2017-01-22 05:53] LABS: Basophils % 0.2 %; Eosinophils # 0.5 K/mcL (0.0-0.6); Eosinophils % 8.2 %; Hematocrit 26.5 % (37.5-50.1); Immature Granulocytes % 0.3 % (0-4); Immature Platelets 9.3 % (1.1-6.1); Lymphocytes % 15.2 %; Mean Corpuscular HGB Conc 31.7 g/dL (31.6-35.5); Mean Corpuscular Hemoglobin 31.5 pg (28.0-33.3); Mean Corpuscular Volume 99.3 fL (83.0-100.0); Monocytes # 0.5 K/mcL (0.0-1.3); Monocytes % 7.9 %; Neutrophils # 4.4 K/mcL (1.6-8.9); Red Blood Count 2.67 M/mcL (4.19-5.50); Red Cell Distribution Width 14.7 % (11.5-14.5); Segmented Neutrophils % 68.2 %
[2017-01-22 05:58] LABS: Platelet Count 62 K/mcL (140-400)
[2017-01-22 06:09] LABS: Calcium 8.5 mg/dL (8.6-10.8); Potassium 5.9 mEq/L (3.5-4.5)
[2017-01-22] MEDS: amLODIPine 5 MG TABLET PO SCH ×2 (08:02→20:36)
[2017-01-22] MEDS: APIXABAN 5 MG TABLET PO SCH ×2 (08:02→20:36)
[2017-01-22] MEDS: Valsartan 80 MG TABLET PO SCH (08:02)
[2017-01-22] MEDS: Isosorbide MONOnitrate (24 HR) 30 MG TAB.ER.24H PO SCH (08:03)
[2017-01-22] MEDS: Calcium Acetate 667 MG CAPSULE PO SCH ×3 (08:03→16:13)
[2017-01-22] MEDS: Budesonide/Formoterol 160/4.5 MDI IH SCH ×2 (08:37→21:57)
--- NOTE | 2017-01-22 10:42 | Internal Med Progress Note ---
Date of Encounter: 01/22/17 Time of Encounter: 10:42 - Assessment and plan (1) Hyperkalemia Current Visit: Yes Status: Acute Assessment and plan: Due to ESRD. On HD. D/C valsartan, will give kayaxelate today. F/U potassium level. (2) End stage renal disease Current Visit: Yes Status: Acute Assessment and plan: On HD as per Nephrology. (3) Status post below knee amputation of left lower extremity Current Visit: Yes Status: Acute (4) DVT prophylaxis Current Visit: Yes Status: Acute Assessment and plan: On eliquis (5) Atrial fibrillation Current Visit: Yes Status: Acute Assessment and plan: Currently rate controlled. On Eliquis Qualifiers: Atrial fibrillation type: chronic Qualified Code(s): I48.2 - Chronic atrial fibrillation (6) Altered mental status, unspecified Current Visit: Yes Status: Acute Assessment and plan: Patient had altered mentation. He did receive some oxycodone. AMS resolved. Qualifiers: Altered mental status type: transient alteration of awareness Qualified Code(s): R40.4 - Transient alteration of awareness - Time Spent With Patient 25 - 35 minutes - Subjective Interval history: he was seen and examined on rounds. He denies chest pain, shortness of breath. - Constitutional Vitals: Temp Pulse Resp BP Pulse Ox 98.1 F 78 17 174/83 93 01/22/17 07:41 01/22/17 07:41 01/22/17 07:41 01/22/17 07:41 01/22/17 07:41 General appearance: Present: A&O X 3, no acute distress - Head Head exam: Present: atraumatic, normocephalic - Eye Eye exam: Present: PERRL, conjuntiva pink, sclera anicteric Pupils: Present: PERRL - Neck Neck exam general surgery: Present: supple, trachea midline. Absent: lymphadenopathy - Respiratory Respiratory exam: Present: CTAB. Absent: accessory muscle use, rales, rhonchi, wheezes - Cardiovascular Cardiovascular exam: Present: RRR, +S1, +S2. Absent: diastolic murmur, gallop, rubs, systolic murmur - GI/Abdominal GI/Abdominal exam: Present: normal bowel sounds, soft, no peritoneal signs. Absent: distended, tenderness - Extremities Exam Extremities exam: Present: warm, radial pulses palpable and symetrical. Absent : calf tenderness, cyanotic, pedal edema - Neurological Exam Neurological exam: Present: CN II-XII intact, oriented X3, no focal deficits. Absent: pronater drift, facial droop, speech deficit - Skin Skin exam: Present: dry, intact Internal Medicine: Result - Labs CBC & Chem 7: 01/22/17 05:26 01/22/17 05:26 Labs: Short CBC 01/21/17 01/22/17 Range/Units 10:15 05:26 WBC 5.7 6.4 (4.3-11.1) K/mcL Hgb 8.4 L 8.4 L (12.9-16.9) g/dL Hct 25.4 L 26.5 L (37.5-50.1) % Plt Count 55 L 62 L (140-400) K/mcL Neutrophils # 4.0 4.4 (1.6-8.9) K/mcL BMP 01/21/17 01/22/17 10:15 05:26 Sodium 138 137 Potassium 5.0 H 5.9 H Chloride 100 100 Carbon Dioxide 27 28 BUN 60 H 49 H D Creatinine 7.26 H 6.55 H Glucose 180 H 125 H Calcium 8.4 L 8.5 L Liver Function 01/21/17 Range/Units 10:15 Total Bilirubin 0.6 (0.2-1.2) mg/dL AST 11 (5-34) Units/L ALT 10 (0-55) Units/L Alkaline Phosphatase 159 H (38-126) Units/L Albumin 2.9 L (3.5-5.0) g/dL - Impressions Impressions Chest X-Ray 01/21/17 00:00 IMPRESSION: Enlarged cardiac silhouette with mild interstitial edema and small left pleural effusion. D/ / Johan Vargas MD / Johan Vargas MD Interpreting Provider: Johan Vargas MD Head CT 01/21/17 14:11 IMPRESSION: No acute intracranial abnormality. Prominent vascular calcifications. Remote right occipital lobe infarct. D/ / Jocelyn Kim MD / Jocelyn Kim MD Interpreting Provider: Jocelyn Kim MD Consult Discharge Plan - Plan Referrals: RAGHAVENDRA,PCP [Primary Care Provider] - 01/27/17 12:30 pm
[2017-01-23] MEDS: Isosorbide MONOnitrate (24 HR) 30 MG TAB.ER.24H PO SCH (06:05)
[2017-01-23] MEDS: APIXABAN 5 MG TABLET PO SCH ×2 (06:05→23:32)
[2017-01-23] MEDS: Calcium Acetate 667 MG CAPSULE PO SCH ×3 (08:03→18:13)
[2017-01-23] MEDS ORDERED: 0.9 % Sodium Chloride 250 ML IVC PRN (08:35)
--- NOTE | 2017-01-23 08:43 | Nephrology Progress Note ---
Date of Encounter: 01/23/17 Time of Encounter: 08:15 - Assessment and Plan (1) ESRD (end stage renal disease) Current Visit: No Status: Chronic Will do HD today, keeping MWF schedule. Patient contemplating quitting HD altogether. Declined Palliative Care consult to discuss end of life issues. If discharged home after HD today, next HD at [facility] on Monday. Subjective Interval history: Resting quietly, watching TV. States feeling better, wants to go home. Patient verbalizing wants to quit dialysis. Clarified with patient, if he meant starting today or if this was something he was just contemplating. States will do HD today but is thinking in near future of quitting HD altogether. Offered Palliative Care consult to discuss end of life issues. Patient declined at present time. Objective - Vital Signs Vital signs: Vital Signs Temp Pulse Resp BP Pulse Ox 01/23/17 08:05 98.4 F 94 18 197/81 97 01/23/17 00:34 98.6 F 86 16 143/67 94 01/22/17 20:03 98.2 F 81 17 148/50 95 01/22/17 15:00 98.5 F 78 17 174/78 99 01/22/17 13:11 94 01/22/17 11:00 98.3 F 88 17 154/74 94 Intake and Output 01/22/17 01/23/17 01/23/17 23:59 07:59 15:59 Other: Weight 71.5 kg Blood Glucose* 162 Patient Weight 01/23/17 23:59 Weight 71.5 kg - General Appearance General appearance: Present: well-developed, well-nourished, appears started age EENT: Present: mucous membranes moist Neck: Present: no JVD Respiratory: Present: clear Cardiology: Present: no edema, regular rate, regular rhythm Additional Comments: left BKA Gastrointestinal: Present: normoactive bowel sounds, no tenderness Integumentary: Present: warm and dry Neurologic: Present: alert and oriented x3 Psychiatric: Present: mood/affect appropriate, cooperative - Lab 01/22/17 05:26 01/23/17 00:30 Most recent lab results Calcium 9.0 mg/dL (8.6-10.8) 01/23/17 00:30 Phosphorus 5.9 mg/dL (2.3-4.7) H 01/20/17 04:58 Magnesium 1.7 mg/dL (1.6-2.6) 01/20/17 04:58 Consult Discharge Plan - Plan Referrals: RAGHAVENDRAPCP [Primary Care Provider] - 01/27/17 12:30 pm
[2017-01-23] MEDS ORDERED: 0.9 % Sodium Chloride 1,000 ML PRIME SCH (08:45)
--- NOTE | 2017-01-23 10:23 | Discharge Summary ---
Addendum entered and electronically signed by Megan Chi DO 14:55: Hyperkalemia: Primary diagnosis Resolved Original Note: <Megan Chi - Last Filed: 01/23/17 14:19> Date of Encounter: 01/23/17 Time of Encounter: 09:40 - Discharge Diagnosis (2) End stage renal disease Priority: Primary Status: Chronic (3) Altered mental status, unspecified Priority: Secondary Status: Resolved Qualifiers: Altered mental status type: transient alteration of awareness Qualified Code(s): R40.4 - Transient alteration of awareness (4) Bradycardia Priority: Primary Status: Resolved (5) Hypothermia Priority: Primary Status: Resolved Qualifiers: Encounter type: initial encounter Qualified Code(s): T68.XXXA - Hypothermia , initial encounter (6) Atrial fibrillation Priority: Secondary Status: Chronic Qualifiers: Atrial fibrillation type: chronic Qualified Code(s): I48.2 - Chronic atrial fibrillation (7) Diabetes mellitus, type 2 Priority: Secondary Status: Chronic Qualifiers: Diabetes mellitus complication status: with kidney complications Diabetes mellitus complication detail: with chronic kidney disease Diabetes mellitus mcc insulin use: without octave board racker use Chronic kidney disease stage: on chronic dialysis Qualified Code(s): E11.22 - Type 2 diabetes mellitus with diabetic chronic kidney disease; N18.6 - End stage renal disease; Z99.2 - Dependence on renal dialysis (8) Essential hypertension Priority: Secondary Status: Chronic (9) Status post below knee amputation of left lower extremity Priority: Secondary Status: Chronic (10) Anemia of chronic disease Priority: Secondary Status: Chronic (11) Thrombocytopenia Priority: Secondary Status: Chronic - Discharge Medications Home Medications: Albuterol Sulfate [Albuterol Inhaler] 2 puff IH QID PRN 09/02/16 [History] Apixaban [Eliquis] 5 mg PO BID 09/02/16 [History] Calcium Acetate [Phos-LO] 1,334 mg PO TID 09/02/16 [History] Gabapentin [Neurontin] 300 mg PO DAILY 09/02/16 [History] Isosorbide MONOnitrate (24 HR) [Imdur] 30 mg PO DAILY 09/02/16 [History] Multivitamin [Multivitamins] 1 tab PO DAILY 09/02/16 [History] Ondansetron ODT [Zofran ODT] 4 mg SL Q6H PRN 09/02/16 [History] Sevelamer [Renvela] 2,400 mg PO TIDWM 09/02/16 [History] Acetaminophen/Chlorpheniramine [Coricidin Hbp Cold & Flu Tab] 2 tab PO BID PRN 09/19/16 [History] Albuterol Neb [Proventil Neb] 2.5 mg IH BID PRN 09/19/16 [History] Budesonide/Formoterol 160/4.5 [Symbicort 160/4.5] 2 puff IH Q12H 09/19/16 [ History] Furosemide [Lasix] 40 mg PO DAILY 09/19/16 [History] Pantoprazole Sodium [Protonix] 40 mg PO DAILY 09/19/16 [History] Amlodipine [Norvasc] 5 mg PO BID 10/26/16 [History] Terazosin [Hytrin] 1 mg PO DAILY 10/26/16 [History] Carvedilol [Coreg] 3.125 mg PO BIDWM tablet 01/23/17 [Rx] Darbepoetin [Aranesp] 60 mcg SQ QWEEK syringe 01/23/17 [Rx] Lidocaine/Prilocaine CREAM [Emla] 1 gm TP 3XW tube 01/23/17 [Rx] Oxycodone HCl 5 mg PO PRN PRN #0 01/23/17 [Rx] Simvastatin [Zocor] 5 mg PO HS tablet 01/23/17 [Rx] Allergies/Adverse Reactions: Allergies morphine Allergy (Verified 09/19/16 05:43) See Comments Procedures/tests Complete & Pending: Procedures Performed prior 72 hours Category Date Time Status CT head/brain wo con [CT] Stat Cat Scan 01/21/17 14:11 Completed Date of admission: 01/19/17 16:12 [facility] care physician: [facility] Consults: 01/19/17 16:26 Consult to Nutrition [CONS] Routine Comment: Consulting Provider: NUTRITION Reason for Dietary Consult: MST Score 01/19/17 18:26 Consult to Nephrology [CONS] Routine Consulting Provider: Kidney & HTN Spclst JASWANT Reason for Consult: please evaluate for hyperkalemia, missed HD on this ESRD patient. Call Completed: Yes 01/19/17 19:00 Consult to Dialysis [CONS] ONCE 01/20/17 16:38 Consult to Occupational Therapy [CONS] Routine Comment: Evaluate, develop and implement POC Consult to Physical Therapy [CONS] Routine Comment: Evaluate, develop and implement POC 01/21/17 08:30 Consult to Dialysis [CONS] ONCE 01/22/17 08:30 Consult to Dialysis [CONS] ONCE 01/23/17 08:45 Consult to Dialysis [CONS] ONCE Discharging clinician: Timothy Marcum Anticipated date of discharge: 01/23/17 - Patient Status Disposition: Home, Self-Care Condition: Fair Functional capacity at discharge: wheelchair bound (May ambulate as per PT) Overall status at discharge: patient is progressing back to baseline - Discharge Instructions Follow Up With: [facility] [Primary Care Provider] - 01/27/17 12:30 pm - Diet and Activity Activity: as per physical therapy Diet: other (Renal diet) Hospital course: Mr. Lorenzana is a 71 year old male with past medical history significant for CVA , CAD, Afib, COPD ESRD on dialysis, HLD, HTN, [place], CABG, anemia, thrombocytopenia , left above knee amputation who presented to [facility] on 01/19/17 from the [facility]. Upon presentation to [facility], patient complained of intermittent weakness x several days. Patient reportedly missed dialysis on 01/16/17 and 01/18 due to weakness causing his "leg to give out". Patient was found to have hyperkalemia at the [facility] with potassium of 5.9 on 01/19/17. Patient upon presentation to [facility], patient was found to have potassium of 7.2, hypothermia ( rectal temp 93.9) and bradycardia (HR 42). Patient was given insulin, dextrose , and sodium bicarbonate for treatment of hyperkalemia. He was urgently dialyzed on 01/19/17. Patient was placed in bear-hugger. Coreg was reduced from 6.25mg BIDWM to Coreg 3.125mg BIDWM with resolution of patient's bradycardia. CXR revealed enlarged cardiac silhouette with mild interstitial edema and small left pleural effusion. Head CT demonstrated no acute intracranial abnormality, prominent vascular calcifications, remote right occipital lobe infarct. Patient did have an episode of altered mental status follow dialysis on 01/21/17. However, this was believed to be to hypotension and /or side effect from oxycodone. Oxycodone has been held since this incident. Patient is in stable condition and is safe for discharge to home. Medications changed during this visit include: Coreg was reduced from 6.25mg BIDWM to Coreg 3.125mg BIDWM, Oxycodone dose reduced from 10mg BID to 5mg BID as needed for pain, Valsartan has been discontinued. Patient will resume dialysis MWF. He will follow up with his PCP on 01/27/17. - Time Spent with Patient Total time spent providing and/or coordinating discharge services: Less than 30 minutes (25 minutes including time with patient and coordinating care) - Constitutional Vitals: Temp Pulse Resp BP Pulse Ox 98.4 F 94 18 197/81 97 01/23/17 08:05 01/23/17 08:05 01/23/17 08:05 01/23/17 08:05 01/23/17 08:05 General appearance: Present: A&O X 3, no acute distress, answers questions appropriately - Head Head exam: Present: atraumatic, normocephalic - Eye Eye exam: Present: PERRL Pupils: Present: PERRL Additional comments: Sclera injected - Neck Neck exam general surgery: Present: supple, trachea midline. Absent: lymphadenopathy Additional comments: Left carotid bruit, No carotid bruit on right - Respiratory Respiratory exam: Present: CTAB. Absent: accessory muscle use, rales, rhonchi, wheezes - Cardiovascular Cardiovascular exam: Present: irregular rhythm, +S1, +S2. Absent: diastolic murmur, gallop, rubs, systolic murmur - GI/Abdominal GI/Abdominal exam: Present: normal bowel sounds, soft, no peritoneal signs. Absent: distended, tenderness - Extremities Exam Extremities exam: Present: warm, radial pulses palpable and symetrical. Absent : calf tenderness, cyanotic, pedal edema Additional comments: Left below the knee amputation - Neurological Exam Neurological exam: Present: CN II-XII intact (pupils 2mm b/l), oriented X3, no focal deficits. Absent: pronater drift, facial droop, speech deficit - Psychiatric Psychiatric exam: Present: flat affect, normal mood - Skin Skin exam: Present: dry, intact - Other Additional findings: Chest X-Ray 01/21/17 00:00 IMPRESSION: Enlarged cardiac silhouette with mild interstitial edema and small left pleural effusion. D/ / Johan Vargas MD / Johan Vargas MD Interpreting Provider: Johan Vargas MD Head CT 01/21/17 14:11 IMPRESSION: No acute intracranial abnormality. Prominent vascular calcifications. Remote right occipital lobe infarct. D/ / Jocelyn Kim MD / Jocelyn Kim MD Interpreting Provider: Jocelyn Kim MD <Marcum,Timothy R - Last Filed: 01/23/17 16:25> Date of Encounter: 01/23/17 - Discharge Diagnosis (1) Hyperkalemia Status: Resolved (2) End stage renal disease Status: Acute (3) Status post below knee amputation of left lower extremity Status: Chronic (4) DVT prophylaxis Status: Acute (5) Atrial fibrillation Status: Chronic Qualifiers: Atrial fibrillation type: chronic Qualified Code(s): I48.2 - Chronic atrial fibrillation (6) Altered mental status, unspecified Status: Resolved Qualifiers: Altered mental status type: transient alteration of awareness Qualified Code(s): R40.4 - Transient alteration of awareness Procedures/tests Complete & Pending: Procedures Performed prior 72 hours Category Date Time Status CT head/brain wo con [CT] Stat Cat Scan 01/21/17 14:11 Completed Date of admission: 01/19/17 16:12 Primary care physician: [facility] Consults: 01/19/17 16:26 Consult to Nutrition [CONS] Routine Comment: Consulting Provider: NUTRITION Reason for Dietary Consult: MST Score 01/19/17 18:26 Consult to Nephrology [CONS] Routine Consulting Provider: Kidney & HTN Spclst JASWANT Reason for Consult: please evaluate for hyperkalemia, missed HD on this ESRD patient. Call Completed: Yes 01/19/17 19:00 Consult to Dialysis [CONS] ONCE 01/20/17 16:38 Consult to Occupational Therapy [CONS] Routine Comment: Evaluate, develop and implement POC Consult to Physical Therapy [CONS] Routine Comment: Evaluate, develop and implement POC 01/21/17 08:30 Consult to Dialysis [CONS] ONCE 01/22/17 08:30 Consult to Dialysis [CONS] ONCE 01/23/17 08:45 Consult to Dialysis [CONS] ONCE Hospital course: Mr. Lorenzana is a 71 year old male - Time Spent with Patient Total time spent providing and/or coordinating discharge services: - Constitutional Vitals: Temp Pulse Resp BP Pulse Ox 98.5 F 83 18 178/64 94 01/23/17 15:32 01/23/17 15:32 01/23/17 15:32 01/23/17 15:32 01/23/17 15:32 - Attending Attestation I examined this patient and my medical decision-making was reviewed with the CLINICAL RN LIAISON/PA/Advanced Practice Nurse/Resident Physician. I agree with the documented findings, disposition and treatment plan as described except to the extent set forth below. Hyperkalemia corrected. D/C today. D/W patient.
[2017-01-23] MEDS: Budesonide/Formoterol 160/4.5 MDI IH SCH ×2 (11:04→21:59)
[2017-01-23] MEDS: amLODIPine 5 MG TABLET PO SCH ×2 (12:28→23:32)
--- NOTE | 2017-01-23 14:52 | Physician Discharge Referral ---
Home Health/Hosp Referral Info Transfer to: Home Health Attending Provider: Margaret Marcum Provider in Charge Post Discharge: PCP - Diagnosis (1) Hyperkalemia Priority: Primary Status: Resolved (2) End stage renal disease Priority: Primary Status: Chronic (3) Altered mental status, unspecified Priority: Secondary Status: Resolved (4) Bradycardia Priority: Secondary Status: Resolved (5) Hypothermia Priority: Secondary Status: Resolved (6) Atrial fibrillation Priority: Secondary Status: Chronic (7) Diabetes mellitus, type 2 Priority: Secondary Status: Chronic (8) Essential hypertension Priority: Secondary Status: Chronic (9) Status post below knee amputation of left lower extremity Priority: Secondary Status: Chronic (10) Anemia of chronic disease Priority: Secondary Status: Chronic (11) Thrombocytopenia Priority: Secondary Status: Chronic - Respiratory Orders Oxygen / L per min (2L/min titrate to O2 sat of 92%) Smoking Cessation: Smoking cessation has been advised. For more information, call the [facility] Quit Line at 8-835-ESTS-NOW. - Diet/Nutrition Diet/Nutrition Orders: Renal - Activity Activity: List: Per PT - Services Needed Following services are medically necessary services: Home Health Aide, Physical Therapy, Occupational Therapy Other Treatments: Medications changed during this visit include: Coreg was reduced from 6.25mg BIDWM to Coreg 3.125mg BIDWM Oxycodone dose reduced from 10mg BID to 5mg prn with max 5mg BID for pain Valsartan has been discontinued - Transfer Medications Home Medications: Albuterol Sulfate [Albuterol Inhaler] 2 puff IH QID PRN 09/02/16 [History] Apixaban [Eliquis] 5 mg PO BID 09/02/16 [History] Calcium Acetate [Phos-LO] 1,334 mg PO TID 09/02/16 [History] Gabapentin [Neurontin] 300 mg PO DAILY 09/02/16 [History] Isosorbide MONOnitrate (24 HR) [Imdur] 30 mg PO DAILY 09/02/16 [History] Multivitamin [Multivitamins] 1 tab PO DAILY 09/02/16 [History] Ondansetron ODT [Zofran ODT] 4 mg SL Q6H PRN 09/02/16 [History] Sevelamer [Renvela] 2,400 mg PO TIDWM 09/02/16 [History] Acetaminophen/Chlorpheniramine [Coricidin Hbp Cold & Flu Tab] 2 tab PO BID PRN 09/19/16 [History] Albuterol Neb [Proventil Neb] 2.5 mg IH BID PRN 09/19/16 [History] Budesonide/Formoterol 160/4.5 [Symbicort 160/4.5] 2 puff IH Q12H 09/19/16 [ History] Furosemide [Lasix] 40 mg PO DAILY 09/19/16 [History] Pantoprazole Sodium [Protonix] 40 mg PO DAILY 09/19/16 [History] Amlodipine [Norvasc] 5 mg PO BID 10/26/16 [History] Terazosin [Hytrin] 1 mg PO DAILY 10/26/16 [History] Carvedilol [Coreg] 3.125 mg PO BIDWM tablet 01/23/17 [Rx] Darbepoetin [Aranesp] 60 mcg SQ QWEEK syringe 01/23/17 [Rx] Lidocaine/Prilocaine CREAM [Emla] 1 gm TP 3XW tube 01/23/17 [Rx] Oxycodone HCl 5 mg PO PRN PRN #0 01/23/17 [Rx] Simvastatin [Zocor] 5 mg PO HS tablet 01/23/17 [Rx] Allergies/Adverse Reactions: Allergies morphine Allergy (Verified 09/19/16 05:43) See Comments Certification: Further, I certify that my clinical findings support that this patient is homebound (i.e. absences from home require considerable and taxing effort and are for medical reasons or mosque services or infrequently or short duration when for other reasons) because: Homebound Reason: Leaving home requires considerable and taxing effort due to condition Attestation: My signature below is to certify that this patient is under my care and that I, or nurse practitioner, or a physician's client account assistant working with me, has a face-to -face encounter with this patient.
[2017-01-23 22:49] VITALS: BP 157/54
== END 2017-01-23 11:45 | disposition home or self-care (01) | DRG 640 ==
LOC: EMEROO 13:34 → 2ANU 15:22 → EMEROO 15:32 → 2ANU 16:12 → 2NNU 19:35 → 2ANU 01-20 10:26
PROVIDERS: ADMIT Internal Medicine Endocrinology, Diabetes & Metabolism; ATTEND Internal Medicine

== ENCOUNTER 2017-02-28 15:02 | Inpatient (IN) ==
[2017-02-28] MEDS ORDERED: Aspirin 81 MG TAB.CHEW PO ONE (15:32)
--- NOTE | 2017-02-28 15:39 | Emergency Department Note ---
Disposition Clinical Impression: CHF (congestive heart failure), NSTEMI (non-ST elevated myocardial infarction) , CAD (coronary artery disease), Atrial fibrillation, ESRD (end stage renal disease), Hyperkalemia Disposition: Admitted As Inpatient Condition: Good [facility] Provider[facility] - Forms: ED Satisfaction Letter Time of Disposition: 16:46 SOB HPI - General Chief Complaint: ED Shortness of Breath/Dyspnea Stated Complaint: LLL Pneumonia, +troped Time Seen by Provider: 02/28/17 15:06 Source: patient Mode of arrival: ambulatory Limitations: no limitations Nursing Notes Reviewed: Yes Vital Signs Reviewed: Yes - History of Present Illness 71-year-old male with past medical history of Monday dialysis, heart disease, atrial fibrillation and congestive heart failure presents from [facility] in [place] for concern for left lower lobe pneumonia and troponin elevated to 0.05. He presented there for progressive cough productive of white sputum over the last few days. He denies any associated fever or chills. He does admit to shortness of breath which is slightly increased from his baseline. He has not needed to use his oxygen at home today however. His symptoms are worsened with lying flat which is usual for him. He does not have any associated nausea, vomiting, abdominal pain, change in urination or bowel movements, lower extremity edema, rashes. He denies any chest, arm, or jaw pain. He states that he had arm, shoulder, and jaw pain with his past 2 heart attacks. He is not sure what blood thinner he takes for his atrial fibrillation. - Related Data Home Medications Medication Instructions Recorded Confirmed Albuterol Sulfate [Albuterol 2 puff IH QID PRN 09/02/16 01/19/17 Inhaler] Apixaban [Eliquis] 5 mg PO BID 09/02/16 01/19/17 Calcium Acetate [Phos-LO] 1,334 mg PO TID 09/02/16 01/19/17 Gabapentin [Neurontin] 300 mg PO DAILY 09/02/16 01/19/17 Isosorbide MONOnitrate (24 HR) 30 mg PO DAILY 09/02/16 01/19/17 [Imdur] Multivitamin [Multivitamins] 1 tab PO DAILY 09/02/16 01/19/17 Ondansetron ODT [Zofran ODT] 4 mg SL Q6H PRN 09/02/16 01/19/17 Sevelamer [Renvela] 2,400 mg PO TIDWM 09/02/16 01/19/17 Acetaminophen/Chlorpheniramine 2 tab PO BID PRN 09/19/16 01/19/17 [Coricidin Hbp Cold & Flu Tab] Albuterol Neb [Proventil Neb] 2.5 mg IH BID PRN 09/19/16 01/19/17 Budesonide/Formoterol 160/4.5 2 puff IH Q12H 09/19/16 01/19/17 [Symbicort 160/4.5] Furosemide [Lasix] 40 mg PO DAILY 09/19/16 01/19/17 Pantoprazole Sodium [Protonix] 40 mg PO DAILY 09/19/16 01/19/17 Terazosin [Hytrin] 1 mg PO DAILY 10/26/16 01/19/17 amLODIPine [Norvasc] 5 mg PO BID 10/26/16 01/19/17 Previous Rx's Medication Instructions Recorded Carvedilol [Coreg] 3.125 mg PO BIDWM tablet 01/23/17 Darbepoetin [Aranesp] 60 mcg SQ QWEEK syringe 01/23/17 Lidocaine/Prilocaine CREAM [Emla] 1 gm TP 3XW tube 01/23/17 Oxycodone HCl 5 mg PO PRN PRN #0 01/23/17 Simvastatin [Zocor] 5 mg PO HS tablet 01/23/17 Allergies Allergy/AdvReac Type Severity Reaction Status Date / Time morphine Allergy See Verified 09/19/16 05:43 Comments All systems ED: reviewed and negative except as stated. Past Medical History - Past Medical History Attestation: Yes The following information was validated with the patient. Source: patient Medical history: Reports: atrial fibrillation, COPD, coronary artery disease, CVA, diabetes, dialysis, hyperlipidemia, hypertension, myocardial infarction, renal disease Surgical history: Reports: coronary bypass (CABG), other Psychiatric history: Reports: no psych history - Social History Smoking Status: Former smoker Smokeless Tobacco Status: No Alcohol use: Reports: occasionally Drug use: Reports: none Physical Exam - Head Head exam: atraumatic, normocephalic, normal inspection - Eye Eye exam: Present: normal appearance, PERRL, EOMI - ENT ENT exam: normal exam, normal oropharynx, mucous membranes moist - Neck Neck exam: Present: normal inspection, full ROM, trachea midline - Chest Chest inspection: Present: normal inspection, symmetric chest wall rise - Respiratory Diminished at the left base. No respiratory distress or tachypnea. Cardiovascular Cardiovascular exam: Present: regular rate, normal rhythm, normal heart sounds - Abdominal Exam Abdominal exam: Present: soft, Non-Tender. Absent: tenderness, distention, guarding, rebound, rigidity - Extremities Exam Right lower extremity status post AKA. Otherwise normal extremity exam. - Back Exam Back exam: Present: normal inspection, full ROM. Absent: tenderness, CVA tenderness (R), CVA tenderness (L) - Neurological Exam Neurological exam: Present: alert, oriented X3, CN II-XII intact - Psychiatric Psychiatric exam: Present: normal affect, normal mood - Skin Skin exam: Present: warm, dry, intact, normal color - General General appearance: alert, in no apparent distress Course - Reevaluation(s) Reevaluation #1: Patient found have elevated troponin to 0.13 here. As noted in the EKG read he has new inferolateral ST depression. He does not have any chest pain or pressure or jaw or shoulder pain, but he does have exertional dyspnea. He denies any symptoms at this time. This was discussed with professor of criminal justice circulation man Dr. Ham at 4:45 PM who recommends the patient be placed on a heparin drip and admitted to the hospitalist for further management. Cardiology will see the patient in consult. No need for urgent catheter this time. Patient stable for admission. Patient given IV Lasix and topical nitroglycerin. He has not had any recent GI bleed or fall and is currently anticoagulated. Time: 16:45 Vital Signs Temperature 98.7 F 02/28/17 15:05 Pulse Rate 76 02/28/17 15:05 Respiratory Rate 18 02/28/17 15:05 Blood Pressure 160/70 02/28/17 15:05 O2 Sat by Pulse Oximetry 100 02/28/17 15:05 Temperature 98.7 F 02/28/17 15:05 Pulse Rate 83 02/28/17 16:48 Respiratory Rate 16 02/28/17 16:48 Blood Pressure 160/70 02/28/17 15:05 O2 Sat by Pulse Oximetry 100 02/28/17 16:48 Oxygen Delivery Oxygen Delivery Nasal Cannula Shortness of Breath/Dyspnea - Lab Data Result diagrams: 02/28/17 15:42 02/28/17 15:42 Lab Results 02/28/17 02/28/17 02/28/17 Range/Units 15:42 15:42 15:42 WBC 5.8 (4.3-11.1) K/mcL RBC 2.93 L (4.19-5.50) M/mcL Hgb 9.6 L (12.9-16.9) g/dL Hct 30.1 L (37.5-50.1) % MCV 102.7 H (83.0-100.0) fL MCH 32.8 (28.0-33.3) pg MCHC 31.9 (31.6-35.5) g/dL RDW 15.7 H (11.5-14.5) % Plt Count 71 L (140-400) K/mcL MPV 13.0 H (9.4-12.4) fL Immature Gran % 0.3 (0-4) % Seg Neutrophils % 86.1 % Lymphocytes % 9.5 % Monocytes % 2.1 % Eosinophils % 1.7 % Basophils % 0.3 % Neutrophils # 5.0 (1.6-8.9) K/mcL Lymphocytes # 0.6 (0.6-4.6) K/mcL Monocytes # 0.1 (0.0-1.3) K/mcL Eosinophils # 0.1 (0.0-0.6) K/mcL Basophils # 0.0 (0.0-0.2) K/mcL Platelet Estimate Decreased L (Normal) Immature Plt Fraction 10.9 H (1.1-6.1) % PT (9.4-12.1) Seconds INR APTT (26.0-36.0) Seconds Sodium 140 (136-145) mEq/L Potassium 5.6 H (3.5-4.5) mEq/L Chloride 100 (98-109) mEq/L Carbon Dioxide 27 (19-29) mEq/L BUN 48 H (8-26) mg/dL Creatinine 7.63 H (0.72-1.25) mg/dL Est GFR ( Amer) 9 L (> 60) Est GFR (Non-Af Amer) 7 L (> 60) BUN/Creatinine Ratio 6 (6-26) Glucose 204 H (70-99) mg/dL Calculated Osmolality 308 H (280-300) Lactic Acid 0.7 (0.5-2.2) mmol/L Calcium 10.3 (8.6-10.8) mg/dL Troponin I (0-0.03) ng/mL B-Natriuretic Peptide (0-100) pg/mL 02/28/17 02/28/17 02/28/17 Range/Units 15:42 15:42 15:42 WBC (4.3-11.1) K/mcL RBC (4.19-5.50) M/mcL Hgb (12.9-16.9) g/dL Hct (37.5-50.1) % MCV (83.0-100.0) fL MCH (28.0-33.3) pg MCHC (31.6-35.5) g/dL RDW (11.5-14.5) % Plt Count (140-400) K/mcL MPV (9.4-12.4) fL Immature Gran % (0-4) % Seg Neutrophils % % Lymphocytes % % Monocytes % % Eosinophils % % Basophils % % Neutrophils # (1.6-8.9) K/mcL Lymphocytes # (0.6-4.6) K/mcL Monocytes # (0.0-1.3) K/mcL Eosinophils # (0.0-0.6) K/mcL Basophils # (0.0-0.2) K/mcL Platelet Estimate (Normal) Immature Plt Fraction (1.1-6.1) % PT 18.7 H (9.4-12.1) Seconds INR 1.7 APTT 38.2 H (26.0-36.0) Seconds Sodium (136-145) mEq/L Potassium (3.5-4.5) mEq/L Chloride (98-109) mEq/L Carbon Dioxide (19-29) mEq/L BUN (8-26) mg/dL Creatinine (0.72-1.25) mg/dL Est GFR ( Amer) (> 60) Est GFR (Non-Af Amer) (> 60) BUN/Creatinine Ratio (6-26) Glucose (70-99) mg/dL Calculated Osmolality (280-300) Lactic Acid (0.5-2.2) mmol/L Calcium (8.6-10.8) mg/dL Troponin I 0.13 H* (0-0.03) ng/mL B-Natriuretic Peptide 2846 H (0-100) pg/mL - EKG Data EKG attestation: Yes I reviewed and interpreted this EKG. EKG results narrative: EKG shows atrial fibrillation at 75 with normal axis. There is no ST elevation , but there is minimal paralateral ST depression. This is new when compared with 10/26/2016. Attestation Statement - Attestation Attestation: I personally interviewed and examined this patient and my medical decision- making was reviewed with the ED Resident Physician, Dr. Renee. I agree with the documented findings, disposition and treatment plan as described except to the extent set forth below. Patient is a 71-year-old white male with a history of known coronary artery disease, atrial fibrillation that is chronic, CHF, end-stage renal disease on hemodialysis Monday who is sent to us from the [place] urgent care reportedly with a left lower lobe pneumonia that was found on chest x-ray done yesterday and today was complaining of worsening shortness of breath and had a positive troponin. Patient's baseline creatinine is over 7 and he just dialyzed yesterday and reports that he has not missed any of his dialysis sessions. Patient is sitting at the bedside and on room air mildly hypoxic at 89-90 on 2 L nasal cannula he is 100%. Patient is in no respiratory distress at bedside, no conversational dyspnea or tachypnea. Patient does have diminished breath sounds throughout, worse in the left base. No audible wheezing on auscultation. Patient with a left BKA, no pitting edema in the right lower extremity. Patient is on blood thinners but we are trying to confirm what he is taking at this time, as he has Coumadin and Lamin was mentioned in his old records and various medication list that were sent with him. Patient at this time denies any form of chest pain pressure or heaviness and has not had any prior to arrival over the last 48 hours. Patient states he just feels short of breath and if he goes to do anything at all if worsened significantly. Patient denies any diaphoresis, no nausea vomiting, no abdominal pain or back pain. Patient's resting comfortable at bedside at this time with no current complaints. Physical exam is documented. Does have new EKG changes today which show inferolateral ischemia or ST depression. This is new compared to his EKG in our system from approximately one month ago. We will repeat his troponin since extent approximate 4 hours since the last dry. [place] clinic. Portal chest x-ray was repeated which here shows acute pulmonary edema without trace left lower lobe pleural effusion. Patient was given nitroglycerin and Lasix here as well as aspirin. Waiting labs. Her plan is to discuss with cardiology and admitted the patient for possible non-STEMI.
[2017-02-28] MEDS ORDERED: Nitroglycerin 1 INCH/GM PACKET TP ONE (15:57)
[2017-02-28] MEDS ORDERED: Furosemide 40 MG/4 ML VIAL IVP ONE (15:57)
[2017-02-28 16:06] LABS: Immature Platelets 10.9 % (1.1-6.1); Lymphocytes % 9.5 %
[2017-02-28 16:08] LABS: INR 1.7; Prothrombin Time 18.7 Seconds (9.4-12.1)
[2017-02-28 16:10] LABS: Activated Partial Thrombo Time 38.2 Seconds (26.0-36.0)
[2017-02-28 16:16] LABS: Basophils % 0.3 %; Eosinophils # 0.1 K/mcL (0.0-0.6); Eosinophils % 1.7 %; Hematocrit 30.1 % (37.5-50.1); Hemoglobin 9.6 g/dL (12.9-16.9); Immature Granulocytes % 0.3 % (0-4); Lymphocytes # 0.6 K/mcL (0.6-4.6); Mean Corpuscular HGB Conc 31.9 g/dL (31.6-35.5); Mean Corpuscular Hemoglobin 32.8 pg (28.0-33.3); Mean Corpuscular Volume 102.7 fL (83.0-100.0); Monocytes # 0.1 K/mcL (0.0-1.3); Monocytes % 2.1 %; Red Blood Count 2.93 M/mcL (4.19-5.50); Red Cell Distribution Width 15.7 % (11.5-14.5); Segmented Neutrophils % 86.1 %
[2017-02-28 16:18] LABS: Calcium 10.3 mg/dL (8.6-10.8); Potassium 5.6 mEq/L (3.5-4.5)
[2017-02-28] MEDS ORDERED: *HR* Heparin 5,000 UNIT/ML VIAL IVP PRN ×2 (16:46)
[2017-02-28] MEDS ORDERED: *HR* Heparin 5,000 UNIT/ML VIAL IVP ONE (16:46)
[2017-02-28 16:50] LABS: Platelet Count 71 K/mcL (140-400)
[2017-02-28 16:53] LABS: Platelet Estimate Decreased (Normal)
[2017-02-28] MEDS ORDERED: Heparin 25,000 UNIT/500 ML D5W 25,000 UNIT/500 ML MLS IVC SCH (17:00)
--- NOTE | 2017-02-28 19:34 | Internal Med History&Physical ---
Date of Encounter: 02/28/17 Time of Encounter: 19:32 Assessment and Plan (1) Pneumonia Current visit: Yes Status: Acute patient with history of pneumonia in the past comes in with signs and symptoms concerning for a pneumonia is found to have an infiltrate on diagnostic imaging , we will check urine strep and legionella antigens, sputum Gram stain and c/s, start empiric Azithro and Ceftriaxone and follow microbiology results Qualifiers: Pneumonia type: due to unspecified organism Laterality: left Lung location: lower lobe of lung Qualified Code(s): J18.1 - Lobar pneumonia, unspecified organism (2) Hyperkalemia Current visit: Yes Status: Acute from ESRD, no need for any urgent intervention, we will follow BMP (3) Elevated troponin Current visit: Yes Status: Acute most likely from poor renal clearance, we will repeat in AM, (4) Essential hypertension Current visit: Yes Status: Chronic will continue home medications with BP monitoring (5) Diabetes mellitus, type 2 Current visit: Yes Status: Chronic patient not on any medications for this per his home medication list, we will check his A1c and do FS ACHS with no coverage, should his A1c and POC be unremarkable we will d/c FS Qualifiers: Diabetes mellitus complication status: with neurologic complications Diabetes mellitus complication detail: with polyneuropathy Diabetes mellitus nursing home insulin use: without nursing home use Qualified Code(s): E11.42 - Type 2 diabetes mellitus with diabetic polyneuropathy (6) CAD (coronary artery disease) Current visit: Yes Status: Chronic Qualifiers: Coronary Disease-Associated Artery/Lesion type: hoh artery [place] vs. transplanted heart: hoh heart Associated angina: without angina Qualified Code(s): I25.10 - Atherosclerotic heart disease of hoh coronary artery without angina pectoris (7) ESRD (end stage renal disease) Current visit: Yes Status: Chronic hx of ESRD on HD MWF, he had his regular HD on Monday, we will get nephrology input for inpatient HD whilst he is on admission here (8) Atrial fibrillation Current visit: Yes Status: Chronic hx of above on eliquis for systemic anticoagulation and coreg for rate control which we will continue, Qualifiers: Atrial fibrillation type: paroxysmal Qualified Code(s): I48.0 - Paroxysmal atrial fibrillation Internal Medicine - H&P: HPI Chief complaint: cough and SOB Admitted From: Hospital to Hospital Transfer Plans for Post Hospital Care: Home History of present illness: Mr. Lorenzana is a 71 year old male with q history of ESRD on HD schedule MWF was brought in as a transfer from the [place] for cough and shortness of breath. He was reportedly in his usual state of health until about a week prior when he began to have productive cough of white/cream sputum, dyspnea and dyspnea on exertion associated with difficulty breathing. This progressed over the course of the week until [facility] and was found to have an infiltrate on the left lower lobe from diagnostic imaging concerning for pneumonia for which he was sent here for further evaluation and management. No fever, chills, nausea or vomiting but reports generalized weakness and malaise. Past Med Surg Social Fam HX - Past Medical History Source: patient, old records reviewed, nursing notes reviewed Medical history: atrial fibrillation, COPD, coronary artery disease, CVA (with aphasia), diabetes, dialysis, hyperlipidemia, hypertension, myocardial infarction, renal disease (ESRD ON HD MWF), other (carotid occlusion, DJD, hyperparathyroidism, ) Psychiatric history: other (adjustment disorder with depressed mood) - Past Surgical History Surgical History: coronary bypass (CABG), other (left BKA) - Social History Smoking Status: Former smoker Smokeless Tobacco Status: No Alcohol use: occasionally Drug use: none Activity Level: Other (uses prosthesis) Additional social history: DNR/DNI - Family History Mother Hx Family Cardiac Disorders: Yes Hx Family Respiratory Disorders: No Hx Family Cancer: No Hx Family GI Disorders: No Hx Family Endocrine Disorder: No Hx Family Neuromuscular Disorders: No Hx Family Neurologic Disorders: No Hx Family HEENT Disorders: No Hx Family Autoimmune Disorders: No Internal Medicine - H&P: Meds Albuterol Sulfate [Albuterol Inhaler] 2 puff IH QID PRN 09/02/16 [History] Apixaban [Eliquis] 5 mg PO BID 09/02/16 [History] Calcium Acetate [Phos-LO] 1,334 mg PO TID 09/02/16 [History] Gabapentin [Neurontin] 300 mg PO DAILY 09/02/16 [History] Isosorbide MONOnitrate (24 HR) [Imdur] 30 mg PO DAILY 09/02/16 [History] Multivitamin [Multivitamins] 1 tab PO DAILY 09/02/16 [History] Sevelamer [Renvela] 2,400 mg PO TIDWM 09/02/16 [History] Acetaminophen/Chlorpheniramine [Coricidin Hbp Cold & Flu Tab] 2 tab PO BID PRN 09/19/16 [History] Albuterol Neb [Proventil Neb] 2.5 mg IH BID PRN 09/19/16 [History] Budesonide/Formoterol 160/4.5 [Symbicort 160/4.5] 2 puff IH Q12H 09/19/16 [ History] Furosemide [Lasix] 40 mg PO DAILY 09/19/16 [History] Pantoprazole Sodium [Protonix] 40 mg PO DAILY 09/19/16 [History] Terazosin [Hytrin] 1 mg PO DAILY 10/26/16 [History] amLODIPine [Norvasc] 5 mg PO BID 10/26/16 [History] Carvedilol 3.125 mg PO BID 02/28/17 [History] Docusate [Colace] 100 mg PO BID 02/28/17 [History] Polyethylene Glycol 3350 [Smoothlax] 17 gm PO DAILY PRN 02/28/17 [History] Allergies morphine Allergy (Verified 09/19/16 05:43) See Comments All Systems PM: A 10-system review of systems was performed and is negative for pertinent findings except as documented above in the HPI. - Constitutional Vitals: Temp Pulse Resp BP Pulse Ox 98.7 F 83 16 187/97 100 02/28/17 15:05 02/28/17 16:48 02/28/17 18:36 02/28/17 18:36 02/28/17 16:48 PHYSICAL EXAMINATION: GENERAL: Alert, not in acute distress, obvious pain or discomfort, makes good eye contact HEENT: NC/AT, EOMI, PERRLA, anicteric sclera, normal conjunctiva, supple, clear nares, moist mucous membranes, RESP: no chest wall tenderness with palpation, lungs are clear to auscultation bilaterally but with diminished breath sounds at the bases CARDIO: irregularly irregular heart sounds, with systolic murmur, no JVD, GI: Soft, full, no tenderness, no organomegaly felt, normal bowel sounds heard MUSCULOSKELETAL: left BKA noted, no edema of the right extremity, LUE AVF with thrill and bruit NEUROLOGIC: CN 2-12 intact grossly. No motor/sensory deficit appreciated, PSYCHIATRY: AAO x 3. Mood is fair, SKIN: multiple areas of ecchymoses noted on the upper extremities, Internal Med - H&P Results - Labs CBC & Chem 7: 02/28/17 15:42 03/01/17 03:11 - EKG Data -: EKG Interpreted by Myself - Diagnostic Studies Chest x-ray Status: image reviewed by me
[2017-02-28] MEDS ORDERED: Naloxone 0.4 MG/ML INJ IVP PRN (19:58)
[2017-02-28] MEDS ORDERED: D5% in Water 1,000 ML IVC PRN (20:05)
[2017-02-28] MEDS ORDERED: *HR* Dextrose 50 % in Water (Syg) 50 ML SYRINGE IVP PRN (20:05)
[2017-02-28] MEDS ORDERED: Dextrose Gel 15 GM PO PRN ×2 (20:05)
[2017-02-28] MEDS: Budesonide/Formoterol 160/4.5 MDI IH SCH (20:31)
[2017-02-28] MEDS: Calcium Acetate 667 MG CAPSULE PO SCH (21:09)
[2017-02-28] MEDS: Azithromycin 250 MG TABLET PO SCH (21:09)
[2017-02-28] MEDS: amLODIPine 5 MG TABLET PO SCH (21:09)
[2017-02-28] MEDS: APIXABAN 5 MG TABLET PO SCH (21:09)
[2017-02-28] MEDS ORDERED: *HR* OxyCODONE Immed Rel 5 MG TABLET PO ONE (21:32)
[2017-03-01 01:57] LABS: Hemoglobin A1C 6.1 %
[2017-03-01 03:41] LABS: Calcium 9.2 mg/dL (8.6-10.8); Magnesium 2.2 mg/dL (1.6-2.6); Phosphorous 4.7 mg/dL (2.3-4.7)
[2017-03-01 03:49] LABS: Potassium 6.6 mEq/L (3.5-4.5)
--- NOTE | 2017-03-01 05:57 | Event Note ---
Date of Encounter: 03/01/17 Time of Encounter: 05:55 I was paged by the nurse due to hyperkalemia at 6.6, recheck showed potassium of 6.7. Review of records show that this patient is a dialysis patient and has chronically elevated potassium. EKG was performed which was essentially unchanged from admission. Will not treat at this time as patient is set to receive dialysis today.
--- NOTE | 2017-03-01 08:43 | Nephrology Consult Note ---
Date of Encounter: 03/01/17 Time of Encounter: 08:40 Assessment and Plan (1) ESRD (end stage renal disease) Current Visit: Yes Status: Chronic Patient has end-stage renal disease. He currently has hyperkalemia. He will undergo dialysis this morning. His hyperkalemia is related to an elevated glucose. Patient shortness of breath may be related to volume overload in the setting of chronic lung disease. There also may be some underlying pneumonia. (2) Shortness of breath Current Visit: Yes Status: Acute (3) Anemia of chronic disease Current Visit: No Status: Chronic (4) Atrial fibrillation Current Visit: No Status: Chronic Qualifiers: Atrial fibrillation type: paroxysmal Qualified Code(s): I48.0 - Paroxysmal atrial fibrillation History of Present Illness - History of Present Illness This is a 71-year-old male with end-stage renal disease who receives dialysis in [place] every Monday. Patient was admitted through the [place] with a complaint of 1 week of worsening shortness of breath. He was told that he had pneumonia. Chest x-ray also suggests possibly a component of congestive heart failure. Patient says he has had a mild cough. He has had some sputum production but has been white in nature. Patient does have an underlying history of chronic lung disease and has been susceptible to recurrent pneumonia for the past several years. Patient denies any lower extremity swelling. He denies any fevers or chills. He denies any chest pain. He is scheduled for his usual dialysis today. Past Med Surg Social Fam HX - Past Medical History Medical history: atrial fibrillation, COPD, coronary artery disease, CVA (with aphasia), diabetes, dialysis, hyperlipidemia, hypertension, myocardial infarction, renal disease (ESRD ON HD MWF), other (carotid occlusion, DJD, hyperparathyroidism, ) Psychiatric history: other (adjustment disorder with depressed mood) - Past Surgical History Surgical History: coronary bypass (CABG), other (left BKA) - Social History Smoking Status: Former smoker Smokeless Tobacco Status: No Alcohol use: occasionally Drug use: none - Family History Mother Name: julieta fischer Age at : 64 Hx Family Cardiac Disorders: Yes Hx Family Respiratory Disorders: No Hx Family Cancer: No Hx Family GI Disorders: No Hx Family Endocrine Disorder: No Hx Family Neuromuscular Disorders: No Hx Family Neurologic Disorders: No Hx Family HEENT Disorders: No Hx Family Autoimmune Disorders: No Medications and Allergies Albuterol Sulfate [Albuterol Inhaler] 2 puff IH QID PRN 09/02/16 [History] Apixaban [Eliquis] 5 mg PO BID 09/02/16 [History] Calcium Acetate [Phos-LO] 1,334 mg PO TID 09/02/16 [History] Gabapentin [Neurontin] 300 mg PO DAILY 09/02/16 [History] Isosorbide MONOnitrate (24 HR) [Imdur] 30 mg PO DAILY 09/02/16 [History] Multivitamin [Multivitamins] 1 tab PO DAILY 09/02/16 [History] Sevelamer [Renvela] 2,400 mg PO TIDWM 09/02/16 [History] Acetaminophen/Chlorpheniramine [Coricidin Hbp Cold & Flu Tab] 2 tab PO BID PRN 09/19/16 [History] Albuterol Neb [Proventil Neb] 2.5 mg IH BID PRN 09/19/16 [History] Budesonide/Formoterol 160/4.5 [Symbicort 160/4.5] 2 puff IH Q12H 09/19/16 [ History] Furosemide [Lasix] 40 mg PO DAILY 09/19/16 [History] Pantoprazole Sodium [Protonix] 40 mg PO DAILY 09/19/16 [History] Terazosin [Hytrin] 1 mg PO DAILY 10/26/16 [History] amLODIPine [Norvasc] 5 mg PO BID 10/26/16 [History] Carvedilol 3.125 mg PO BID 02/28/17 [History] Docusate [Colace] 100 mg PO BID 02/28/17 [History] Polyethylene Glycol 3350 [Smoothlax] 17 gm PO DAILY PRN 02/28/17 [History] Allergies morphine Allergy (Verified 09/19/16 05:43) See Comments Review of Systems Constitutional: no excessive sweating, no weight loss Eyes: bilateral: blurred vision (patient denies), diplopia (patient denies) Nose, mouth and throat: no dizziness, no headache(s) Cardiovascular: dyspnea, dyspnea on exertion Respiratory: as per HPI, cough, dyspnea on exertion Gastrointestinal: no abdominal pain, no change in bowel habits Genitourinary Male: change in libido Musculoskeletal: no muscle weakness, no numbness Integumentary: no hirsutism, no striae Neurological: as per HPI Psychiatric: no depression, no difficulty concentrating Endocrine: as per HPI Hematologic/Lymphatic: no easy bruising, no lymphadenopathy Exam - Vital Signs Vital signs: Initial Vital Signs Temp Pulse Resp BP Pulse Ox 98.7 F 76 18 160/70 100 02/28/17 15:05 02/28/17 15:05 02/28/17 15:05 02/28/17 15:05 02/28/17 15:05 Vital Signs - Last 8 Hours Temp Pulse Resp BP Pulse Ox 03/01/17 07:00 97.5 F L 66 20 178/77 94 03/01/17 04:00 97.6 F 82 18 147/112 92 Intake and Output 02/28/17 03/01/17 03/01/17 23:59 07:59 15:59 Intake Total 0 / 0 0 / 0 Output Total 0 / 0 0 / 0 Balance 0 / 0 0 / 0 Intake: Oral 0 / 0 0 / 0 Output: Urine 0 / 0 0 / 0 Other: # Voids 1 Weight 76.2 kg 74.4 kg Blood Glucose* 357 433 Patient Weight 03/01/17 23:59 Weight 74.4 kg - General Appearance Exam: Patient is alert and oriented. He is in no acute distress. Lungs demonstrate markedly diminished breath sounds throughout all lung edge. There are some faint rales in the left base. Heart regular rate and rhythm. Abdomen shows normal bowel sounds appraise mass is again megaly or tenderness. Lower extremities show no peripheral edema. Patient is status post left BKA. There is a functioning AV graft in the left upper extremity. Results - Lab Results 02/28/17 15:42 03/01/17 04:22 Most recent lab results Calcium 9.2 mg/dL (8.6-10.8) 03/01/17 03:11 Phosphorus 4.7 mg/dL (2.3-4.7) 03/01/17 03:11 Magnesium 2.2 mg/dL (1.6-2.6) 03/01/17 03:11 Consult Discharge Plan - Plan [facility]errals[facility]Primary Care Provider[facility] -
[2017-03-01] MEDS ORDERED: 0.9 % Sodium Chloride 250 ML IVC PRN (08:45)
[2017-03-01 09:27] LABS: Hepatitis B Surface Antibody 0.15 mIU/mL; Hepatitis B Surface Antigen Nonreactive (Nonreactive)
[2017-03-01] MEDS: APIXABAN 5 MG TABLET PO SCH ×2 (09:51→21:34)
[2017-03-01] MEDS: Calcium Acetate 667 MG CAPSULE PO SCH ×3 (09:51→21:34)
[2017-03-01] MEDS: Gabapentin 300 MG CAPSULE PO SCH (09:52)
[2017-03-01] MEDS: Multivit/Ca/Min/Fe/FA 1 TAB TABLET PO SCH (09:52)
[2017-03-01] MEDS: Budesonide/Formoterol 160/4.5 MDI IH SCH ×2 (10:07→22:08)
--- NOTE | 2017-03-01 11:41 | Internal Med Progress Note ---
<Radha Wyman - Last Filed: 03/01/17 20:08> Date of Encounter: 03/01/17 Time of Encounter: 09:30 - Assessment and plan (1) Pneumonia Status: Acute Assessment and plan: - One-week history of productive cough and shortness of breath on initial presentation. - Known history of pneumonia in the past with similar presentation. - Currently on IV ceftriaxone and azithromycin and patient reports significant improvement on respiratory status. - Sputum culture and urine antigens for Legionella & S. pneumoniae ordered. - Continue empiric antibiotics and de-escalate later based on clinical finding and/or culture result. Qualifiers: Pneumonia type: due to unspecified organism Laterality: left Lung location: lower lobe of lung Qualified Code(s): J18.1 - Lobar pneumonia, unspecified organism (2) Hyperkalemia Status: Acute Assessment and plan: - K as high as 6.7 - Patient had received Kayexalate and will have dialysis today. - Continue to monitor. (3) ESRD (end stage renal disease) on dialysis Status: Acute Assessment and plan: - ESRD on HD MWF. - Dr. Pino of nephrology was consulted and patient will have dialysis today. (4) Elevated troponin Status: Acute Assessment and plan: - Elevated troponin at 0.13 but then dropped to 0.03. - Likely troponin leak secondary to ESRD. (5) Essential hypertension Status: Chronic Assessment and plan: - BP within normal range. - Continue current antihypertensive regimen. (6) Atrial fibrillation Status: Chronic Assessment and plan: - Currently rate-controlled, continue Coreg. - Continue Eliquis for anticoagulation. Qualifiers: Atrial fibrillation type: paroxysmal Qualified Code(s): I48.0 - Paroxysmal atrial fibrillation - Subjective Interval history: Patient was seen and examined this morning. Patient reports breathing better compared to yesterday but still has some nonproductive cough. Patient denies fever, chills, chest pain, abdominal pain, nausea, vomiting. Patient is aware that he will have his dialysis later this morning. - Constitutional Vitals: Temp Pulse Resp BP Pulse Ox 97.5 F L 66 20 178/77 94 03/01/17 07:00 03/01/17 07:00 03/01/17 07:00 03/01/17 09:50 03/01/17 07:00 General appearance: Present: cooperative, A&O X 3, no acute distress - Head Head exam: Present: atraumatic, normocephalic - Eye Eye exam: Present: EOMI, PERRL, conjuntiva pink, sclera anicteric - Neck Neck exam general surgery: Present: supple, trachea midline. Absent: lymphadenopathy - Respiratory Respiratory exam: Present: decreased breath sounds (Bibasilar). Absent: accessory muscle use, rales, rhonchi, wheezes - Cardiovascular Cardiovascular exam: Present: irregular rhythm, +S1, +S2. Absent: diastolic murmur, gallop, rubs, systolic murmur - GI/Abdominal GI/Abdominal exam: Present: normal bowel sounds, soft, no peritoneal signs. Absent: distended, tenderness - Extremities Exam Extremities exam: Present: warm, radial pulses palpable and symetrical. Absent : calf tenderness, cyanotic Additional comments: LUE AV fistula with thrill and bruit. Left BKA noted. No edema of right lower extremities. - Neurological Exam Neurological exam: Present: CN II-XII intact, oriented X3, no focal deficits. Absent: pronater drift, facial droop, speech deficit - Skin Skin exam: Present: dry, intact Internal Medicine: Result - Labs CBC & Chem 7: 02/28/17 15:42 03/01/17 04:22 Labs: BMP 03/01/17 03/01/17 03:11 04:22 Sodium 134 L Potassium 6.6 H* D 6.7 H* Chloride 99 Carbon Dioxide 24 BUN 61 H D Creatinine 8.41 H Glucose 425 H Calcium 9.2 Cardiac Enzymes 03/01/17 Range/Units 00:59 Troponin I 0.03 (0-0.03) ng/mL - ABG Interpretation ABG results: PT/INR, D-dimer PT 18.7 Seconds (9.4-12.1) H 02/28/17 15:42 Consult Discharge Plan - Plan Instructions: Levofloxacin (By mouth), Pneumonia (DC) Additional Instructions: Please take one more dose of levofloxacin 750 mg by mouth after hemodialysis on 03/03/17 to finish therapy for your pneumonia/bronchitis. Please follow up with your primary care provider at [place] within a week. Please continue your hemodialysis every Monday, Monday and Monday. Please continue your inhaler and home oxygen use. [facility] Care Provider[facility] - (within a week) Prescriptions: Levofloxacin [Levaquin] 750 mg PO Q48H #1 tablet <Jw Mcintosh P - Last Filed: 03/02/17 18:02> Date of Encounter: 03/02/17 - Constitutional Vitals: Temp Pulse Resp BP Pulse Ox 98.1 F 77 18 155/71 97 03/01/17 15:58 03/01/17 15:58 03/01/17 15:58 03/01/17 15:58 03/01/17 15:58 Internal Medicine: Result - Labs CBC & Chem 7: 02/28/17 15:42 03/02/17 04:05 Labs: BMP 03/01/17 03/01/17 03:11 04:22 Sodium 134 L Potassium 6.6 H* D 6.7 H* Chloride 99 Carbon Dioxide 24 BUN 61 H D Creatinine 8.41 H Glucose 425 H Calcium 9.2 Cardiac Enzymes 03/01/17 Range/Units 00:59 Troponin I 0.03 (0-0.03) ng/mL - ABG Interpretation ABG results: PT/INR, D-dimer PT 18.7 Seconds (9.4-12.1) H 02/28/17 15:42 - Attending Attestation I examined this patient and my medical decision-making was reviewed with the SOCIOLOGY ADJUNCT INSTRUCTOR/PA/Advanced Practice Nurse/Resident Physician. I agree with the documented findings, disposition and treatment plan as described except to the extent set forth below.
[2017-03-01] MEDS: amLODIPine 5 MG TABLET PO SCH ×2 (15:03→21:34)
[2017-03-01] MEDS: Isosorbide MONOnitrate (24 HR) 30 MG TAB.ER.24H PO SCH (15:05)
[2017-03-01] MEDS ORDERED: 0.9 % Sodium Chloride 2,000 ML ONE (16:36)
[2017-03-01] MEDS ORDERED: Acetaminophen 325 MG TABLET PO PRN (16:44)
[2017-03-01] MEDS: Azithromycin 250 MG TABLET PO SCH (21:34)
[2017-03-02 05:19] LABS: Potassium 4.2 mEq/L (3.5-4.5)
[2017-03-02 07:22] VITALS: BP 146/72
[2017-03-02] MEDS: Budesonide/Formoterol 160/4.5 MDI IH SCH ×2 (07:46→10:08)
[2017-03-02] MEDS: Multivit/Ca/Min/Fe/FA 1 TAB TABLET PO SCH (09:15)
[2017-03-02] MEDS: APIXABAN 5 MG TABLET PO SCH (09:15)
[2017-03-02] MEDS: Gabapentin 300 MG CAPSULE PO SCH (09:15)
[2017-03-02] MEDS: Calcium Acetate 667 MG CAPSULE PO SCH (09:15)
[2017-03-02] MEDS: Isosorbide MONOnitrate (24 HR) 30 MG TAB.ER.24H PO SCH (09:15)
[2017-03-02] MEDS: amLODIPine 5 MG TABLET PO SCH (09:16)
--- NOTE | 2017-03-02 09:43 | Nephrology Progress Note ---
Date of Encounter: 03/02/17 Time of Encounter: 09:30 - Assessment and Plan (1) ESRD (end stage renal disease) Current Visit: Yes Status: Chronic ESRD. Hyperkalemia resolved with HD yesterday. SOB may have been related to volume overload in the setting of chronic lung disease. There also may be some underlying pneumonia. Subjective Interval history: Sitting on edge of bed. States breathing easier, productive cough, white sputum. Objective - Vital Signs Vital signs: Vital Signs Temp Pulse Resp BP Pulse Ox 03/02/17 07:46 16 100 03/02/17 07:21 98.2 F 85 15 146/72 98 03/02/17 04:00 97.5 F L 72 20 131/94 96 03/02/17 00:58 153/61 03/01/17 23:00 97.8 F 80 16 151/75 90 03/01/17 22:08 1 96 03/01/17 21:46 97 03/01/17 20:00 97.8 F 82 18 117/86 03/01/17 15:58 98.1 F 77 18 155/71 97 03/01/17 13:30 97.5 F L 18 147/66 03/01/17 13:25 134/50 03/01/17 13:10 147/58 03/01/17 12:55 149/62 03/01/17 12:40 151/73 03/01/17 12:25 159/81 03/01/17 12:10 162/77 03/01/17 11:55 165/77 03/01/17 11:40 163/75 03/01/17 11:25 168/75 03/01/17 11:10 170/83 03/01/17 10:55 163/71 03/01/17 10:40 153/77 03/01/17 10:25 97.5 F L 18 169/79 03/01/17 09:50 178/77 Intake and Output 03/01/17 03/02/17 03/02/17 23:59 07:59 15:59 Intake Total 0 / 0 120 / 120 Output Total 0 / 0 0 / 0 Balance 0 / 0 120 / 120 Intake: Oral 0 / 0 120 / 120 Output: Urine 0 / 0 0 / 0 Other: Stool Size Large Stool Consistency formed # Voids 1 1 # Bowel Movements 1 Weight 127.1 kg Blood Glucose* 303 183 Patient Weight 03/02/17 23:59 Weight 127.1 kg - General Appearance General appearance: Present: well-developed, well-nourished, appears started age EENT: Present: mucous membranes moist Neck: Present: no JVD Respiratory: Present: clear Additional Comments: diminished throughout Cardiology: Present: no edema, irregular rhythm Gastrointestinal: Present: normoactive bowel sounds, no tenderness Integumentary: Present: warm and dry Neurologic: Present: alert and oriented x3 Psychiatric: Present: mood/affect appropriate, cooperative - Lab 02/28/17 15:42 03/02/17 04:05 Most recent lab results Calcium 9.0 mg/dL (8.6-10.8) 03/02/17 04:05 Phosphorus 4.7 mg/dL (2.3-4.7) 03/01/17 03:11 Magnesium 2.2 mg/dL (1.6-2.6) 03/01/17 03:11 Consult Discharge Plan - Plan [facility]errals: [facility] [Primary Care Provider] -
--- NOTE | 2017-03-02 11:22 | Internal Med Progress Note ---
Date of Encounter: 03/02/17 Time of Encounter: 09:45 - Assessment and plan (1) Pneumonia Current Visit: Yes Status: Acute Qualifiers: Pneumonia type: due to unspecified organism Laterality: left Lung location: lower lobe of lung Qualified Code(s): J18.1 - Lobar pneumonia, unspecified organism (2) Hyperkalemia Current Visit: Yes Status: Acute (3) ESRD (end stage renal disease) on dialysis Current Visit: Yes Status: Acute (4) Elevated troponin Current Visit: Yes Status: Acute (5) Essential hypertension Current Visit: Yes Status: Chronic (6) Atrial fibrillation Current Visit: No Status: Chronic Qualifiers: Atrial fibrillation type: paroxysmal Qualified Code(s): I48.0 - Paroxysmal atrial fibrillation - Subjective Interval history: Patient was seen and examined this morning. Patient reports breathing better compared to yesterday but still has some nonproductive cough. Patient denies fever, chills, chest pain, abdominal pain, nausea, vomiting. Patient is aware that he will have his dialysis later this morning. - Constitutional Vitals: Temp Pulse Resp BP Pulse Ox 98.2 F 85 16 146/72 100 03/02/17 07:21 03/02/17 07:21 03/02/17 07:46 03/02/17 07:21 03/02/17 07:46 General appearance: Present: cooperative, A&O X 3, no acute distress Internal Medicine: Result - Labs CBC & Chem 7: 02/28/17 15:42 03/02/17 04:05 Labs: BMP 03/02/17 04:05 Sodium 139 Potassium 4.2 D Chloride 100 Carbon Dioxide 29 BUN 37 H D Creatinine 6.10 H Glucose 256 H Calcium 9.0 - ABG Interpretation ABG results: PT/INR, D-dimer PT 18.7 Seconds (9.4-12.1) H 02/28/17 15:42 Consult Discharge Plan - Plan [facility]errals: [facility] [Primary Care Provider] -
--- NOTE | 2017-03-02 11:28 | Discharge Summary ---
<Radha Wyman - Last Filed: 03/02/17 15:06> Date of Encounter: 03/02/17 Time of Encounter: 09:45 - Discharge Diagnosis (1) Pneumonia Priority: Primary Status: Acute Qualifiers: Pneumonia type: due to unspecified organism Laterality: left Lung location: lower lobe of lung Qualified Code(s): J18.1 - Lobar pneumonia, unspecified organism (2) Hyperkalemia Priority: Secondary Status: Acute (3) ESRD (end stage renal disease) on dialysis Priority: Secondary Status: Acute (4) Elevated troponin Priority: Secondary Status: Acute (5) Essential hypertension Priority: Secondary Status: Chronic (6) Atrial fibrillation Priority: Secondary Status: Chronic Qualifiers: Atrial fibrillation type: paroxysmal Qualified Code(s): I48.0 - Paroxysmal atrial fibrillation - Discharge Medications Prescriptions: Levofloxacin [Levaquin] 750 mg PO Q48H #1 tablet Home Medications: Albuterol Sulfate [Albuterol Inhaler] 2 puff IH QID PRN 09/02/16 [History] Apixaban [Eliquis] 5 mg PO BID 09/02/16 [History] Calcium Acetate [Phos-LO] 1,334 mg PO TID 09/02/16 [History] Gabapentin [Neurontin] 300 mg PO DAILY 09/02/16 [History] Isosorbide MONOnitrate (24 HR) [Imdur] 30 mg PO DAILY 09/02/16 [History] Multivitamin [Multivitamins] 1 tab PO DAILY 09/02/16 [History] Sevelamer [Renvela] 2,400 mg PO TIDWM 09/02/16 [History] Acetaminophen/Chlorpheniramine [Coricidin Hbp Cold & Flu Tab] 2 tab PO BID PRN 09/19/16 [History] Albuterol Neb [Proventil Neb] 2.5 mg IH BID PRN 09/19/16 [History] Budesonide/Formoterol 160/4.5 [Symbicort 160/4.5] 2 puff IH Q12H 09/19/16 [ History] Furosemide [Lasix] 40 mg PO DAILY 09/19/16 [History] Pantoprazole Sodium [Protonix] 40 mg PO DAILY 09/19/16 [History] Terazosin [Hytrin] 1 mg PO DAILY 10/26/16 [History] amLODIPine [Norvasc] 5 mg PO BID 10/26/16 [History] Carvedilol 3.125 mg PO BID 02/28/17 [History] Docusate [Colace] 100 mg PO BID 02/28/17 [History] Polyethylene Glycol 3350 [Smoothlax] 17 gm PO DAILY PRN 02/28/17 [History] Levofloxacin [Levaquin] 750 mg PO Q48H #1 tablet 03/02/17 [Rx] Allergies/Adverse Reactions: Allergies morphine Allergy (Verified 09/19/16 05:43) See Comments Date of admission: 02/28/17 19:58 Primary care physician: PCP [facility] Consults: 02/28/17 20:02 Consult to Nephrology [CONS] Routine Consulting Provider: [facility] Reason for Consult: pls assist in managing this pt known to you with ESRD on HD MWF for inpt HD, thanks Call Completed: No 03/01/17 09:00 Consult to Dialysis [CONS] ONCE Discharging clinician: Radha Wyman Anticipated date of discharge: 03/02/17 - Patient Status Disposition: Home, Self-Care Condition: Good Functional capacity at discharge: uses cane/walker Overall status at discharge: patient is progressing back to baseline - Discharge Instructions Instructions: Levofloxacin (By mouth), Pneumonia (DC) [facility]: [facility] [[facility] Care Provider[facility] - (within a week) Additional Instructions: Please take one more dose of levofloxacin 750 mg by mouth after hemodialysis on 03/03/17 to finish therapy for your pneumonia/bronchitis. Please follow up with your primary care provider at [place] within a week. Please continue your hemodialysis every Monday, Monday and Monday. Please continue your inhaler and home oxygen use. - Diet and Activity Activity: increase activity as tolerated Diet: low salt diet Hospital course: Mr. Lorenzana is a 71 year old male with PMH of ESRD on HD MWF, COPD and A-fib. Patient presented to [facility] for worsening shortness of breath and productive cough and then transferred to [facility] on 02/28/17 for concern of pneumonia as CXR at [facility] found an left lower lobe infiltrate. IV ceftriaxone and azithromycin were started and patient reports significantly improvement since. Patient was also noted to have elevated troponin 0.13 but later dropped to 0.03. Likely troponin leakage from his ESRD given patient has no chest pain and no significant ischemic change on EKG. Nephrology was consulted and patient received hemodialysis on 03/01/17 and that helped to bring K down from 6.7 to 4.2. Given patient's respiratory symptoms significantly improve and patient remains hemodynamically stable, will discharge patient home with one more dose of levofloxacin 750 mg by mouth after hemodialysis on 03/03/17. to finish therapy for your pneumonia/bronchitis. Patient is also instructed to follow up with his primary care provider at [place] within a week. - Time Spent with Patient Total time spent providing and/or coordinating discharge services: Greater than 30 minutes - Constitutional Vitals: Temp Pulse Resp BP Pulse Ox 98.2 F 85 16 146/72 100 03/02/17 07:21 03/02/17 07:21 03/02/17 07:46 03/02/17 07:21 03/02/17 07:46 General appearance: Present: cooperative, A&O X 3, no acute distress - Head Head exam: Present: atraumatic, normocephalic - Eye Eye exam: Present: EOMI, PERRL, conjuntiva pink, sclera anicteric - Neck Neck exam general surgery: Present: supple, trachea midline. Absent: lymphadenopathy - Respiratory Respiratory exam: Present: CTAB. Absent: accessory muscle use, rales, rhonchi, wheezes - Cardiovascular Cardiovascular exam: Present: irregular rhythm, +S1, +S2. Absent: diastolic murmur, gallop, rubs, systolic murmur - GI/Abdominal GI/Abdominal exam: Present: normal bowel sounds, soft, no peritoneal signs. Absent: distended, tenderness - Extremities Exam Extremities exam: Present: warm, radial pulses palpable and symetrical. Absent : calf tenderness, cyanotic Additional comments: LUE AV fistula with thrill and bruit. Left BKA noted. No edema of right lower extremities. - Neurological Exam Neurological exam: Present: CN II-XII intact, oriented X3, no focal deficits. Absent: pronater drift, facial droop, speech deficit - Skin Skin exam: Present: dry, intact, warm <Dayna,Jw P - Last Filed: 03/02/17 18:02> Date of Encounter: 03/02/17 Date of admission: 02/28/17 19:58 Primary care physician: [facility] Consults: 02/28/17 20:02 Consult to Nephrology [CONS] Routine Consulting Provider: [facility] Reason for Consult: pls assist in managing this pt known to you with ESRD on HD MWF for inpt HD, thanks Call Completed: No 03/01/17 09:00 Consult to Dialysis [CONS] ONCE Hospital course: Mr. Lorenzana is a 71 year old male - Time Spent with Patient Total time spent providing and/or coordinating discharge services: - Constitutional Vitals: Temp Pulse Resp BP Pulse Ox 98.2 F 85 16 146/72 100 03/02/17 07:21 03/02/17 07:21 03/02/17 07:46 03/02/17 07:21 03/02/17 07:46 - Attending Attestation I examined this patient and my medical decision-making was reviewed with the MAIL PROCESSING CLERK/PA/Advanced Practice Nurse/Resident Physician. I agree with the documented findings, disposition and treatment plan as described except to the extent set forth below.
[2017-03-02] MEDS ORDERED: levoFLOXacin 750 MG TABLET PO ONE (11:33)
== END 2017-03-02 13:18 | disposition home or self-care (01) | DRG 193 ==
LOC: EMEROO 15:02 → 2NENU 15:02
PROVIDERS: ADMIT Registered Nurse; ATTEND Internal Medicine

== ENCOUNTER 2017-05-19 14:25 | Inpatient (IN) ==
--- NOTE | 2017-05-19 14:41 | Emergency Department Note ---
START Narrative - START START: I examined this patient and my medical decision-making was reviewed with the PURCHASING SUPERVISOR/PA/Advanced Practice Nurse/Resident Physician. I agree with the documented findings, disposition and treatment plan as described except to the extent set forth below. ED attending note: Patient seen with emergency medicine resident Dr. Marroquin. Please see a copy of his note for details of the H&P, evaluation, management and disposition of this patient. We independently had [id number] contact with the patient Briefly: 71 year old white male transferred from the [facility]. For fatigue and lightheadedness with shortness of breath after dialysis. Labs were drawn hemoglobin 7.1. Was told to the ER for transfusion. Was concerned that there might be some financial repercussions if he did not go to the [place] first which he did. They evaluated him and then transferred him to [facility] for further evaluation. Patient complaining of dark stools for. Time now some mild dyspnea on exertion and fatigue. EKG shows some lateral lead ST depressions as well as in 2 and 3 those appear to be old the lateral leads possibly new. Likely demand ischemia. Patient cardiology consult and PRBCs were ordered with admission pending acceptance by hospitalist. Providing 45 minutes critical care service for this patient.
--- NOTE | 2017-05-19 14:56 | Emergency Department Note ---
Disposition Clinical Impression: HCAP (healthcare-associated pneumonia), ESRD (end stage renal disease) on dialysis, Weakness, Anemia of chronic disease, PAF (paroxysmal atrial fibrillation) Left lower lobe pneumonia Qualifiers: Pneumonia type: due to unspecified organism Qualified Code(s): J18.1 - Lobar pneumonia, unspecified organism Disposition: Admitted As Inpatient Condition: Serious Forms: ED Satisfaction Letter Time of Disposition: 15:48 General Adult HPI - General Chief complaint: ED Recheck/Abnormal Lab/Rx Stated complaint: Low Hgb Time Seen by Provider: 05/19/17 14:35 Source: patient, EMS Mode of arrival: EMS Limitations: no limitations Nursing Notes Reviewed: Yes Vital Signs Reviewed: Yes - History of Present Illness HPI Narrative: 71-year-old male history ESRD, Dialysis MWF with Ken Pino on Eliquis , history of hypertension hyperlipidemia, CABG in 2007, presents with shortness of breath for the last 4 weeks, patient was sent from the [facility] due to anemia hemoglobin of 7.1 at 12:30 today 05/19. Patient denies any chest pain or palpitations, states that he is always in atrial fibrillation, and compliant on his medications. Patient also has shortness of breath, states that he was recently placed on oxygen for low oxygen saturation at home. History of COPD and smoking. he reports also recent weight loss of 30-40 pounds. Dry COugh. denies hemoptysis, hematuria, hematochezia. Also 10 of 10 nonradiating headache , for several weeks. Consist with previous headaches, achy Denies fever or chills. 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 Denies: confusion, chest pain, loss of appetite, malaise, nausea/vomiting - Related Data Home Medications Medication Instructions Recorded Confirmed Albuterol Sulfate [Albuterol 2 puff IH QID PRN 09/02/16 02/28/17 Inhaler] Apixaban [Eliquis] 5 mg PO BID 09/02/16 02/28/17 Calcium Acetate [Phos-LO] 1,334 mg PO TID 09/02/16 02/28/17 Gabapentin [Neurontin] 300 mg PO DAILY 09/02/16 02/28/17 Isosorbide MONOnitrate (24 HR) 30 mg PO DAILY 09/02/16 02/28/17 [Imdur] Multivitamin [Multivitamins] 1 tab PO DAILY 09/02/16 02/28/17 Sevelamer [Renvela] 2,400 mg PO TIDWM 09/02/16 02/28/17 Acetaminophen/Chlorpheniramine 2 tab PO BID PRN 09/19/16 02/28/17 [Coricidin Hbp Cold & Flu Tab] Albuterol Neb [Proventil Neb] 2.5 mg IH BID PRN 09/19/16 02/28/17 Budesonide/Formoterol 160/4.5 2 puff IH Q12H 09/19/16 02/28/17 [Symbicort 160/4.5] Furosemide [Lasix] 40 mg PO DAILY 09/19/16 02/28/17 Pantoprazole Sodium [Protonix] 40 mg PO DAILY 09/19/16 02/28/17 Terazosin [Hytrin] 1 mg PO DAILY 10/26/16 02/28/17 amLODIPine [Norvasc] 5 mg PO BID 10/26/16 02/28/17 Carvedilol 3.125 mg PO BID 02/28/17 02/28/17 Docusate [Colace] 100 mg PO BID 02/28/17 02/28/17 Polyethylene Glycol 3350 17 gm PO DAILY PRN 02/28/17 02/28/17 [Smoothlax] Previous Rx's Medication Instructions Recorded Levofloxacin [Levaquin] 750 mg PO Q48H #1 tablet 03/02/17 Allergies Allergy/AdvReac Type Severity Reaction Status Date / Time morphine Allergy See Verified 09/19/16 05:43 Comments All systems ED: reviewed and negative except as stated. Review of Systems: As Per HPI Constitutional: Denies: fever Eyes: Denies: eye pain ENT ED: Denies: ear pain Cardiovascular: Reports: as per HPI, dyspnea on exertion. Denies: chest pain, palpitations Respiratory: Reports: dyspnea. Denies: cough Gastrointestinal: Denies: abdominal pain, nausea, hematemesis, hematochezia Genitourinary: Denies: urgency Musculoskeletal: Denies: back pain Integumentary: Denies: rash Past Medical History - Past Medical History Attestation: Yes The following information was validated with the patient. Source: patient Medical history: Reports: atrial fibrillation, COPD, coronary artery disease, CVA, diabetes, dialysis, hyperlipidemia, hypertension, myocardial infarction, renal disease, other Surgical history: Reports: coronary bypass (CABG), other (left BKA) Psychiatric history: Reports: other - Social History Smoking Status: Former smoker Smokeless Tobacco Status: No Alcohol use: Reports: occasionally Drug use: Reports: none Physical Exam Constitutional: alert and oriented, appears pale irregularly irregular rhythm , on 2 L EENT: Conjunctival pallor Neck: normal inspection, neck is supple, no JVD Resp: normal chest inspection, CTA bilaterally, no resp distress, no wheezes/ rales/rhonchi CV: Irregularly irregular rhythm, LSB systolic murmur Extremity: +2 bilateral radial and posterial tibial pulses, no pedal edema GI: normal inspection, Soft, NTND, no peritoneal signs, no palpable abdominal aortic aneurysm Rectal: no abnormalities, brown soft stool Back: normal inspection, no tenderness to palpation Neuro: A&O3, no gross motor or sensory deficits bilaterally MSK: normal inspection, bilateral UE and LE with normal ROM Skin:pale skin - General Limitations: no limitations General appearance: alert, in no apparent distress Course Course Narrative: 31-year-old male with shortness of breath and generalized weakness, patient has been short of breath for about a month, given his symptoms, concerning laboratory findings of anemia he will be 7.1, I did order a stool guaiac although stool was brown on exam, troponin, EKG shows mild worsening ischemic changes, this was indicated to the electrical installer Dr. Doyle, given his CABG history, no intervention at this time given anemia, they will follow closely. Troponin CBC was repeated patient to be a likely admission - Reevaluation(s) Reevaluation #1: Admitted to Dr. Kaminski, started on a scab antibiotics for left lower lobe pneumonia, no evidence of sepsis, does not meet SIRS, however does have a floor note lobe pneumonia on x-ray. Time: 15:47 - Consultations Consultation #1: Counseled with Dr. Doyle, she agrees with EKG changes assessment, no STEMI criteria however worsening ST depressions in lateral precordial leads possible demand ischemia. Time: 15:15 Vital Signs Temperature 98.3 F 05/19/17 14:26 Pulse Rate 84 05/19/17 14:26 Respiratory Rate 18 05/19/17 14:26 Blood Pressure 152/68 05/19/17 14:26 O2 Sat by Pulse Oximetry 90 05/19/17 14:26 Temperature 98.3 F 05/19/17 14:26 Pulse Rate 84 05/19/17 14:26 Respiratory Rate 18 05/19/17 14:26 Blood Pressure 152/68 05/19/17 14:26 O2 Sat by Pulse Oximetry 90 05/19/17 14:26 Oxygen Delivery Oxygen Delivery Room Air Medical Decision Making - MDM Narrative Medical decision making narrative: 71-year-old male with shortness of breath, anemia, left lower lobe pneumonia presumed H, end-stage renal disease on dialysis, admitted to medicine service inserious but stable condition - Medical Records Medical records reviewed: Yes I reviewed the patient's medical records. - Lab Data Lab results reviewed: Yes I reviewed the patient's lab results. Lab results narrative: PTT 33.9, INR 1.3 next Calcium 8.6 sodium 141 potassium 4.7 chloride 101 bicarbonate 31 glucose 246 BUN 29 creatinine 4.1 and GFR 15 RBC 5.7 hemoglobin 7.1 hematocrit 22.9 platelets 60 Labs are done on 05/19/2017 at 1220 - Radiology Data Radiology results reviewed: Yes I reviewed the patient's radiology results. Chest X-Ray 05/19/17 15:01 IMPRESSION: Findings concerning for left lower lobe pneumonia D/ / Anil Rodríguez MD / Anil Rodríguez MD Interpreting Provider: Anil Rodríguez MD - EKG Data EKG #1 EKG attestation: Yes I reviewed and interpreted this EKG. Rhythm: A.Fib (76 bpm QRS 94 QTc 429) [place]/QRS: normal ST segment elevation in: aVR (0.5mm) ST segment depression in: II, III, aVF, v5, v6 Interpretation: nonspecific ST-T wave changes (slight worsening ST depressions in his inferior/lat leads, consistent ST elevation 0.5 mm in AVR, no STEMI criteria subtle changes from previous EKG 10/2016)
[2017-05-19 15:11] LABS: Hematocrit 24.2 % (37.5-50.1); Immature Platelets 12.4 % (1.1-6.1); Mean Corpuscular HGB Conc 30.2 g/dL (31.6-35.5); Mean Corpuscular Hemoglobin 29.6 pg (28.0-33.3); Mean Platelet Volume 13.6 fL (9.4-12.4); Red Blood Count 2.47 M/mcL (4.19-5.50); Red Cell Distribution Width 16.9 % (11.5-14.5); Segmented Neutrophils % 72.6 %
[2017-05-19 15:12] LABS: Basophils % 0.4 %; Eosinophils # 0.3 K/mcL (0.0-0.6); Eosinophils % 5.8 %; Immature Granulocytes % 0.5 % (0-4); Lymphocytes # 0.8 K/mcL (0.6-4.6); Lymphocytes % 13.8 %; Monocytes # 0.4 K/mcL (0.0-1.3); Monocytes % 6.9 %; Neutrophils # 4.1 K/mcL (1.6-8.9)
[2017-05-19 15:13] LABS: Hemoglobin 7.3 g/dL (12.9-16.9); Platelet Count 62 K/mcL (140-400)
[2017-05-19 15:15] LABS: VBG HCO3 32.5 mEq/L (21-27); VBG PH 7.38 pH Units (7.32-7.42)
[2017-05-19] MEDS ORDERED: Piperacillin/Tazobactam 3.375 GM in D5% in Water (Mini-Bag+) 100 ML IVPB ONE (15:44)
[2017-05-19] MEDS ORDERED: Levofloxacin 750 MG/150 ML 750 MG/150 ML BAG IVPB ONE (15:44)
[2017-05-19] MEDS ORDERED: Vancomycin 1,000 MG in D5% in Water 250 ML IVPB ONE (15:44)
[2017-05-19] MEDS ORDERED: Naloxone 0.4 MG/ML INJ IVP PRN (17:40)
[2017-05-19] MEDS ORDERED: Ondansetron 4 MG/2 ML VIAL IVP PRN (17:40)
[2017-05-19] MEDS ORDERED: Acetaminophen 325 MG TABLET PO PRN (17:40)
[2017-05-19] MEDS ORDERED: *HR* OxyCODONE Immed Rel 5 MG TABLET PO PRN (17:56)
[2017-05-19] MEDS ORDERED: Budesonide/Formoterol 160/4.5 MDI IH SCH (18:00)
--- NOTE | 2017-05-19 18:32 | Internal Med History&Physical ---
<Lety Rivas M - Last Filed: 05/19/17 23:13> Date of Encounter: 05/19/17 Time of Encounter: 18:30 Assessment and Plan (1) HCAP (healthcare-associated pneumonia) Current visit: Yes Status: Acute Patient presented with SOB. CXR shows LLL pneumonia. Patient was recently treated for pneumonia and does HD MWF, will treat as HCAP with broad spectrum antibiotics, vanc, levaquin and zosyn. Duonebs QID titrate oxygen to maintain saturation > 92%. (2) Anemia of chronic disease Current visit: Yes Status: Chronic Patient reporting lightheadedness and shortness of breath. HGb found to be 7.3 , which is stable from previous Hgb on 05/10/17. Patient denies black or bloody stool. FOB negative. Recheck CBC with morning labs and consider transfusion with next scheduled dialysis. (3) Diabetes mellitus, type 2 Current visit: Yes Status: Chronic diabetic diet. check blood sugars ACHS sliding scale correction dose aCHS hypoglycemic protocol. Qualifiers: Diabetes mellitus complication status: with neurologic complications Diabetes mellitus complication detail: with polyneuropathy Diabetes mellitus nursing home insulin use: without terminal operations supervisor use Qualified Code(s): E11.42 - Type 2 diabetes mellitus with diabetic polyneuropathy (4) Hyperkalemia Current visit: Yes Status: Acute Pot[facility] 4.7 [facility]. Patient has ESRD and had dialysis today. No indication for urgent dialysis at this time. Recheck chemistry with morning labs. (5) PAF (paroxysmal atrial fibrillation) Current visit: Yes Status: Chronic Patient with history of paroxysmal afib, on carvedilol for rate control and eliquis for anticoagulation. Continue home dose of carvedilol and eliquis. (6) DVT prophylaxis Current visit: Yes Status: Acute anti-embolic stockings Patient on eliquis for afib, additional pharmacologic prophylaxis not warranted. Internal Medicine - H&P: HPI Chief complaint: shortness of breath Admitted From: Emergency Dept Plans for Post Hospital Care: Home History of present illness: Mr. Lorenzana is a 71 year old male with hypertension, hyperlipidemia, coronary artery disease status post CABG, diabetes, COPD, end-stage renal disease on dialysis, atrial fibrillation [facility] with complaints of shortness of breath and lightheadedness after dialysis today. Patient reports she has been feeling short of breath for the last 4 weeks. He reports he has lightheadedness on and off. He denies any chest pain or palpitations. He reports a dry cough. He reports nausea and vomiting which is chronic in nature. Denies any abdominal pain, diarrhea, increased swelling, fever, chills or sweats. He reports a headache as well. Evaluation in emergency department revealed hemoglobin is 7.3, troponin was normal at 0.02. Fecal occult blood was negative. Chest x-ray revealed possible pneumonia. EKG showed some mild changes with ST depressions in the inferior lateral leads, this was reviewed by cardiology and they recommended no intervention at this time. [facility] showed mild hyperkalemia with potassium of 4.7, hyperglycemia with glucose of 246. BUN and creatinine were elevated consistent with his baseline end-stage renal disease. On exam, patient alert and oriented, in no acute distress. Heart had regular rate and rhythm, lungs with diminished sounds in the left base. Past Med Surg Social Fam HX - Past Medical History Medical history: atrial fibrillation, COPD, coronary artery disease, CVA, diabetes, dialysis, hyperlipidemia, hypertension, myocardial infarction, renal disease, other Psychiatric history: other - Past Surgical History Surgical History: coronary bypass (CABG), other (left BKA) - Social History Smoking Status: Former smoker Smokeless Tobacco Status: No Alcohol use: occasionally Drug use: none - Family History Mother Hx Family Cardiac Disorders: Yes Hx Family Respiratory Disorders: No Hx Family Cancer: No Hx Family GI Disorders: No Hx Family Endocrine Disorder: No Hx Family Neuromuscular Disorders: No Hx Family Neurologic Disorders: No Hx Family HEENT Disorders: No Hx Family Autoimmune Disorders: No Father Living Status: Age at : 62 Hx Family Respiratory Disorders: Yes Internal Medicine - H&P: Meds Albuterol Sulfate [Albuterol Inhaler] 2 puff IH QID PRN 09/02/16 [History] Apixaban [Eliquis] 5 mg PO BID 09/02/16 [History] Calcium Acetate [Phos-LO] 1,334 mg PO TID 09/02/16 [History] Gabapentin [Neurontin] 300 mg PO DAILY 09/02/16 [History] Isosorbide MONOnitrate (24 HR) [Imdur] 30 mg PO DAILY 09/02/16 [History] Multivitamin [Multivitamins] 1 tab PO DAILY 09/02/16 [History] Sevelamer [Renvela] 2,400 mg PO TIDWM 09/02/16 [History] Acetaminophen/Chlorpheniramine [Coricidin Hbp Cold & Flu Tab] 2 tab PO BID PRN 09/19/16 [History] Albuterol Neb [Proventil Neb] 2.5 mg IH BID PRN 09/19/16 [History] Budesonide/Formoterol 160/4.5 [Symbicort 160/4.5] 2 puff IH Q12H 09/19/16 [ History] Furosemide [Lasix] 40 mg PO DAILY 09/19/16 [History] Pantoprazole Sodium [Protonix] 40 mg PO DAILY 09/19/16 [History] Terazosin [Hytrin] 1 mg PO DAILY 10/26/16 [History] amLODIPine [Norvasc] 5 mg PO BID 10/26/16 [History] Carvedilol 3.125 mg PO BID 02/28/17 [History] Docusate [Colace] 100 mg PO BID 02/28/17 [History] Polyethylene Glycol 3350 [Smoothlax] 17 gm PO DAILY PRN 02/28/17 [History] Doxycycline Monohydrate [Mondoxyne Nl] 100 mg PO BID 05/19/17 [History] OxyCODONE Immed Rel [Roxicodone 5 MG] 5 mg PO DAILY PRN 05/19/17 [History] Oxycodone HCl 10 mg PO BID 05/19/17 [History] Allergies morphine Allergy (Verified 09/19/16 05:43) See Comments All Systems PM: A 10-system review of systems was performed and is negative for pertinent findings except as documented above in the HPI. - Constitutional Constitutional: no chills, no fever(s), no night sweats - EENT Eyes: no change in vision, no discharge, no pain, no photophobia Ears: no ear discharge, no ear pain, no tinnitus Nose, mouth and throat: no dysphagia, no nasal discharge, no neck pain, no sore throat - Cardiovascular Cardiovascular ROS IM: dyspnea, dyspnea on exertion, lightheadedness, no chest pain, no diaphoresis, no palpitations, no syncope - Respiratory Respiratory: cough, dyspnea, dyspnea on exertion, no wheezing, no excessive phlegm production - Gastrointestinal Gastrointestinal: nausea, vomiting, no abdominal pain, no diarrhea, no hematemesis, no hematochezia, no melena - Musculoskeletal Musculoskeletal ROS IM: no numbness, no tingling - Integumentary Integumentary IM: no rash, no unusual bruising - Neurological Neurological ROS: no confusion, no convulsions, no focal weakness, no numbness, no tingling, no tremor(s) - Hematologic/Lymphatic Hematologic/Lymphatic: no easy bruising - Constitutional Vitals: Temp Pulse Resp BP Pulse Ox 97.5 F L 82 16 154/89 100 05/19/17 18:05 05/19/17 18:05 05/19/17 18:05 05/19/17 17:40 05/19/17 18:05 General appearance: Present: A&O X 3, pleasant, no acute distress - Head Head exam: Present: atraumatic, normocephalic - Eye Eye exam: Present: PERRL, conjuntiva pink, sclera anicteric Pupils: Present: PERRL - Neck Neck exam general surgery: Present: supple, trachea midline. Absent: lymphadenopathy - Respiratory Respiratory exam: Present: decreased breath sounds (left base). Absent: accessory muscle use, rales, rhonchi, wheezes - Cardiovascular Cardiovascular exam: Present: RRR, +S1, +S2. Absent: diastolic murmur, gallop, rubs, systolic murmur - GI/Abdominal GI/Abdominal exam: Present: normal bowel sounds, soft, no peritoneal signs. Absent: distended, tenderness - Extremities Exam Extremities exam: Present: warm, radial pulses palpable and symmetrical. Absent : calf tenderness, cyanotic, pedal edema Additional comments: Left BKA - Neurological Exam Neurological exam: Present: CN II-XII intact, oriented X3, no focal deficits. Absent: facial droop, speech deficit - Skin Skin exam: Present: dry, intact Internal Med - H&P Results - Labs CBC & Chem 7: 05/19/17 14:51 Labs: Labs from CT: Na 141 K 4.7 Cl 101 CO2 31 BUN 29 Cr 41 Glu 246 All Lab Results (24 Hours) 05/19/17 05/19/17 05/19/17 Range/Units 14:50 14:51 14:51 WBC (4.3-11.1) K/mcL RBC (4.19-5.50) M/mcL Hgb (12.9-16.9) g/dL Hct (37.5-50.1) % MCV (83.0-100.0) fL MCH (28.0-33.3) pg MCHC (31.6-35.5) g/dL RDW (11.5-14.5) % Plt Count (140-400) K/mcL MPV (9.4-12.4) fL Immature Gran % (0-4) % Seg Neutrophils % % Lymphocytes % % Monocytes % % Eosinophils % % Basophils % % Neutrophils # (1.6-8.9) K/mcL Lymphocytes # (0.6-4.6) K/mcL Monocytes # (0.0-1.3) K/mcL Eosinophils # (0.0-0.6) K/mcL Basophils # (0.0-0.2) K/mcL Immature Plt Fraction (1.1-6.1) % VBG pH (7.32-7.42) pH Units VBG pCO2 (41-51) mmHg VBG pO2 (25-40) mmHg VBG HCO3 (21-27) mEq/L Lactic Acid (0.5-2.2) mmol/L Troponin I 0.02 (0-0.03) ng/mL Stool Occult Blood Negative (Negative) Blood Type A POSITIVE Antibody Screen NEGATIVE 05/19/17 05/19/17 05/19/17 Range/Units 14:51 14:51 16:57 WBC 5.7 (4.3-11.1) K/mcL RBC 2.47 L (4.19-5.50) M/mcL Hgb 7.3 L (12.9-16.9) g/dL Hct 24.2 L (37.5-50.1) % MCV 98.0 (83.0-100.0) fL MCH 29.6 (28.0-33.3) pg MCHC 30.2 L (31.6-35.5) g/dL RDW 16.9 H (11.5-14.5) % Plt Count 62 L (140-400) K/mcL MPV 13.6 H (9.4-12.4) fL Immature Gran % 0.5 (0-4) % Seg Neutrophils % 72.6 % Lymphocytes % 13.8 % Monocytes % 6.9 % Eosinophils % 5.8 % Basophils % 0.4 % Neutrophils # 4.1 (1.6-8.9) K/mcL Lymphocytes # 0.8 (0.6-4.6) K/mcL Monocytes # 0.4 (0.0-1.3) K/mcL Eosinophils # 0.3 (0.0-0.6) K/mcL Basophils # 0.0 (0.0-0.2) K/mcL Immature Plt Fraction 12.4 H (1.1-6.1) % VBG pH 7.38 (7.32-7.42) pH Units VBG pCO2 55 H (41-51) mmHg VBG pO2 53 H (25-40) mmHg VBG HCO3 32.5 H (21-27) mEq/L Lactic Acid 0.7 (0.5-2.2) mmol/L Troponin I (0-0.03) ng/mL Stool Occult Blood (Negative) Blood Type Antibody Screen <Cindy Kaminski - Last Filed: 05/20/17 18:11> Date of Encounter: 05/20/17 Internal Medicine - H&P: HPI History of present illness: Mr. Lorenzana is a 71 year old male All Systems PM: A 10-system review of systems was performed and is negative for pertinent findings except as documented above in the HPI. - Constitutional Vitals: Temp Pulse Resp BP Pulse Ox 98.1 F 85 20 138/75 100 05/20/17 17:38 05/20/17 17:38 05/20/17 17:38 05/20/17 17:38 05/20/17 17:38 Internal Med - H&P Results - Labs CBC & Chem 7: 05/20/17 05:30 05/20/17 10:35 Labs: Short CBC 05/20/17 Range/Units 05:30 WBC 10.1 D (4.3-11.1) K/mcL Hgb 7.6 L (12.9-16.9) g/dL Hct 25.1 L (37.5-50.1) % Plt Count 65 L (140-400) K/mcL Neutrophils # 8.4 (1.6-8.9) K/mcL BMP 05/20/17 05/20/17 07:51 10:35 Sodium 137 Potassium 7.0 H* 7.1 H* Chloride 101 Carbon Dioxide 20 BUN 51 H Creatinine 5.45 H Glucose 113 H Calcium 9.4 Cardiac Enzymes 05/19/17 05/20/17 Range/Units 22:06 07:51 Troponin I 0.01 0.02 (0-0.03) ng/mL - Attending Attestation I examined this patient and my medical decision-making was reviewed with the ANIMAL HERDER. I agree with the documented findings, disposition and treatment plan as described
[2017-05-19] MEDS ORDERED: Dextrose Gel 15 GM PO PRN ×2 (18:41)
[2017-05-19] MEDS ORDERED: D5% in Water 1,000 ML IVC PRN (18:41)
[2017-05-19] MEDS ORDERED: *HR* Dextrose 50 % in Water (Syg) 50 ML SYRINGE IVP PRN (18:41)
[2017-05-19] MEDS ORDERED: Albuterol 2.5 MG/3 ML NEBULIZER IH PRN (19:14)
[2017-05-19] MEDS ORDERED: Vancomycin 1 EACH in D5% in Water 250 ML IVPB SCH (20:00)
[2017-05-19] MEDS: *HR* OxyCODONE Immed Rel 5 MG TABLET PO SCH (20:14)
[2017-05-19] MEDS: amLODIPine 5 MG TABLET PO SCH (20:15)
[2017-05-19] MEDS: APIXABAN 5 MG TABLET PO SCH (20:15)
[2017-05-19] MEDS: Calcium Acetate 667 MG CAPSULE PO SCH (20:16)
[2017-05-19] MEDS: Insulin LISPRO 300 UNITS/3 ML VIAL SQ SCH (22:21)
[2017-05-19] MEDS: Ipratropium/Albuterol Neb 3 ML IH SCH (22:49)
[2017-05-20] MEDS ORDERED: Piperacillin/Tazobactam 2.25 GM in D5% in Water (Mini-Bag+) 100 ML IVPB SCH
[2017-05-20] MEDS: Piperacillin/Tazobactam 3.375 GM in D5% in Water (Mini-Bag+) 100 ML IVPB SCH ×2 (03:43→17:48)
[2017-05-20] MEDS: Ipratropium/Albuterol Neb 3 ML IH SCH ×4 (04:55→22:37)
[2017-05-20 06:26] LABS: Hematocrit 25.1 % (37.5-50.1); Mean Corpuscular Volume 96.5 fL (83.0-100.0)
[2017-05-20 06:28] LABS: Basophils % 0.2 %; Eosinophils # 0.5 K/mcL (0.0-0.6); Eosinophils % 4.9 %; Hemoglobin 7.6 g/dL (12.9-16.9); Immature Granulocytes % 0.6 % (0-4); Immature Platelets 15.5 % (1.1-6.1); Lymphocytes # 0.6 K/mcL (0.6-4.6); Lymphocytes % 5.6 %; Mean Corpuscular HGB Conc 30.3 g/dL (31.6-35.5); Mean Corpuscular Hemoglobin 29.2 pg (28.0-33.3); Monocytes # 0.6 K/mcL (0.0-1.3); Monocytes % 5.8 %; Red Cell Distribution Width 16.7 % (11.5-14.5); Segmented Neutrophils % 82.9 %
[2017-05-20 06:44] LABS: Neutrophils # 8.4 K/mcL (1.6-8.9); Platelet Count 65 K/mcL (140-400)
--- NOTE | 2017-05-20 08:07 | Nephrology Consult Note ---
Date of Encounter: 05/20/17 Time of Encounter: 07:55 Assessment and Plan (1) ESRD (end stage renal disease) Current Visit: No Status: Chronic HCAP. Anemia, recent history positive guiac x 3. Would recommend GI consult, Dr. Kiser. Will transfuse one unit PRBC today. No HD today, keeping MWF schedule. History of Present Illness - Reason for Consult end stage renal disease - History of Present Illness Mr. Lorenzana is a 71 year old male with ESRD who dialyzes at [facility] on MWF. Last dialysis yesterday. Other PMH-atrial fibrillation, COPD, coronary artery disease, CVA, diabetes, hyperlipidemia, hypertension, myocardial infarction. Mr. Lorenzana has had 3 positive stool guiacs sent from dialysis center with a dropping HGB 7.1 from 7.8 in center, despite Aranesp injections. A referral was made to Dr. Kiser. Mr. Lorenzana complained of somewhat worsening of shortness of breath and weakness. Per Dr. Pino to transfuse one unit of PRBC's following his dialysis yesterday. Due to issues of financial responsibilty and [place], [place] [facility] [place] and sent on to [facility]. CXR in ER showed LLL pneumonia, hemoccult negative and Hgb 7.3. No PRBC's transfused. This morning Mr. Lorenzana is sitting on edge of bed, continues to admit somewhat increased SOB and weakness, though wants to go home. Hgb today 7.6. Past Med Surg Social Fam HX - Past Medical History Medical history: atrial fibrillation, COPD, coronary artery disease, CVA, diabetes, dialysis, hyperlipidemia, hypertension, myocardial infarction, renal disease, other Psychiatric history: other - Past Surgical History Surgical History: coronary bypass (CABG), other (left BKA) - Social History Smoking Status: Former smoker Smokeless Tobacco Status: No Alcohol use: occasionally Drug use: none - Family History Father Living Status: Age at : 62 Hx Family Respiratory Disorders: Yes Mother Hx Family Cardiac Disorders: Yes Hx Family Respiratory Disorders: No Hx Family Cancer: No Hx Family GI Disorders: No Hx Family Endocrine Disorder: No Hx Family Neuromuscular Disorders: No Hx Family Neurologic Disorders: No Hx Family HEENT Disorders: No Hx Family Autoimmune Disorders: No Medications and Allergies Albuterol Sulfate [Albuterol Inhaler] 2 puff IH QID PRN 09/02/16 [History] Apixaban [Eliquis] 5 mg PO BID 09/02/16 [History] Calcium Acetate [Phos-LO] 1,334 mg PO TID 09/02/16 [History] Gabapentin [Neurontin] 300 mg PO DAILY 09/02/16 [History] Isosorbide MONOnitrate (24 HR) [Imdur] 30 mg PO DAILY 09/02/16 [History] Multivitamin [Multivitamins] 1 tab PO DAILY 09/02/16 [History] Sevelamer [Renvela] 2,400 mg PO TIDWM 09/02/16 [History] Acetaminophen/Chlorpheniramine [Coricidin Hbp Cold & Flu Tab] 2 tab PO BID PRN 09/19/16 [History] Albuterol Neb [Proventil Neb] 2.5 mg IH BID PRN 09/19/16 [History] Budesonide/Formoterol 160/4.5 [Symbicort 160/4.5] 2 puff IH Q12H 09/19/16 [ History] Furosemide [Lasix] 40 mg PO DAILY 09/19/16 [History] Pantoprazole Sodium [Protonix] 40 mg PO DAILY 09/19/16 [History] Terazosin [Hytrin] 1 mg PO DAILY 10/26/16 [History] amLODIPine [Norvasc] 5 mg PO BID 10/26/16 [History] Carvedilol 3.125 mg PO BID 02/28/17 [History] Docusate [Colace] 100 mg PO BID 02/28/17 [History] Polyethylene Glycol 3350 [Smoothlax] 17 gm PO DAILY PRN 02/28/17 [History] Doxycycline Monohydrate [Mondoxyne Nl] 100 mg PO BID 05/19/17 [History] OxyCODONE Immed Rel [Roxicodone 5 MG] 5 mg PO DAILY PRN 05/19/17 [History] Oxycodone HCl 10 mg PO BID 05/19/17 [History] Allergies morphine Allergy (Verified 09/19/16 05:43) See Comments Review of Systems All Systems: reviewed and no additional remarkable complaints except as stated Exam - Vital Signs Vital signs: Initial Vital Signs Temp Pulse Resp BP Pulse Ox 98.3 F 84 18 152/68 90 05/19/17 14:26 05/19/17 14:26 05/19/17 14:26 05/19/17 14:26 05/19/17 14:26 Vital Signs - Last 8 Hours Temp Pulse Resp BP Pulse Ox 05/20/17 04:55 17 95 05/20/17 03:29 97.6 F 74 18 158/76 98 Intake and Output 05/19/17 05/19/17 05/20/17 15:59 23:59 07:59 Intake Total 240 / 240 100 / 100 Balance 240 / 240 100 / 100 Intake: IV Fluids 100 / 100 Zosyn 3.375 GM In 100 / 100 Dextrose 5% (Minibag+) 100 ML 100 ML @ 25 mls/hr IVPB Q12H [facility] Rx#: [id number] Oral 240 / 240 Other: Meal Dinner Percent of Meal Consumed 40% Stool Size Smear Stool Consistency soft Stool Color Brown # Voids 1 # Bowel Movements 1 Blood Glucose* 348 - General Appearance General appearance: well-developed, well-nourished, appears started age EENT: mucous membranes moist Neck: no JVD, no carotid bruit Respiratory: clear Additional Comments: diminished throughout Gastrointestinal: normoactive bowel sounds, no tenderness Integumentary: warm and dry Neurologic: alert and oriented x3 Psychiatric: mood/affect appropriate, cooperative Results - Lab Results 05/20/17 05:30 Consult Discharge Plan - Plan [facility]errals: [facility] [Primary Care Provider[facility] -
[2017-05-20] MEDS: Calcium Acetate 667 MG CAPSULE PO SCH ×3 (08:14→17:55)
[2017-05-20] MEDS: Isosorbide MONOnitrate (24 HR) 30 MG TAB.ER.24H PO SCH (08:14)
[2017-05-20] MEDS: *HR* OxyCODONE Immed Rel 5 MG TABLET PO SCH ×2 (08:15→21:28)
[2017-05-20] MEDS: Gabapentin 300 MG CAPSULE PO SCH (08:15)
[2017-05-20] MEDS: APIXABAN 5 MG TABLET PO SCH (08:15)
[2017-05-20] MEDS: amLODIPine 5 MG TABLET PO SCH ×2 (08:15→21:28)
[2017-05-20] MEDS: Furosemide 40 MG TABLET PO SCH (08:15)
[2017-05-20] MEDS: Insulin LISPRO 300 UNITS/3 ML VIAL SQ SCH ×4 (08:31→21:31)
[2017-05-20 09:48] LABS: Calcium 9.4 mg/dL (8.6-10.8)
--- NOTE | 2017-05-20 10:28 | General Surgery Consult Note ---
Date of Encounter: 05/20/17 Time of Encounter: 09:50 History of Present Illness Consult date: 05/20/17 Reason for consult: other (anemia, hemoccult positive stool) Requesting physician: Dalila Bush History of present illness: 71-year-old referred to [facility] for further evaluation anemia and hemoccult positive stools. The patient was admitted after presenting to the emergency department with increasing shortness of breath. Essentially straight demonstrated a left lower lobe pneumonia. Past medical history: Hypertension; hyperlipidemia; coronary artery disease, status post CABG; diabetes; COPD; end-stage renal disease requiring dialysis; atrial fibrillation for which the patient is on chronic anticoagulation (Eliquis ); and diabetic vasculopathy Surgical history: CABG, left BKA, cervical disc surgery with injury to the vocal cords Allergies: Morphine (patient indicates he goes crazy when this med administered) Medications: Albuterol 2 puffs 4 times a day as needed for shortness of breath Apixaban 5 mg po BID Calcium acetate (PhosLo) 1334 mg by mouth 3 times a day Gabapentin 300 mg by mouth daily Isosorbide mononitrate 30 mg by mouth daily Multivitamins 1 by mouth daily Sevelamer (Renvela) 2400 mg by mouth 3 times a day with meals Acetaminophen/chlorpheniramine 2 tabs by mouth twice a day as needed Albuterol nebulizer 2.5 mg inhaled twice a day as needed Budesonide/formoterol 160/4.5 2 puffs every 12 hours Furosemide 40 mg by mouth daily Pantoprazole 40 mg by mouth daily Terazosin 1 mg by mouth daily Amlodipine 5 mg by mouth twice a day Carvedilol 3.125 mg by mouth twice a day Docusate 100 mg by mouth twice a day Polyethylene glycol 3350 17 g by mouth every morning as needed for constipation Doxycycline 100 mg by mouth twice a day (prescribed 05/19/17) Oxycodone 10 mg by mouth twice a day Oxycodone immediate release 5 mg by mouth daily as needed for pain Social history: who served in [place]; former smoker; admits to an occasional alcoholic beverage; denies any illicit drug use Family history: Not obtained Physical examination: 71-year-old male who appears older than his stated age; he is resting comfortably in his hospital bed. He did not appear to be in acute distress Afebrile, 97.7; pulse 90, irregular; respirations 18; blood pressure 147/69. SPO2 on 2 L/m nasal cannula 96% Lungs: Clear to auscultation, no audible wheezes Cardiac: Irregular rate Abdomen: Soft, nontender, no appreciable intra-abdominal masses. No rebound. Active bowel sounds. Extremities: No clubbing cyanosis or edema; evidence of a well-healed left BKA. Laboratories: On admission white count 5.7, repeat today 10.1 Hemoglobin on admission 7.3 with hematocrit 24.2; currently 7.6/25.1 Platelet count 62 on admission; 65,000 currently Electrolytes notable for potassium of 7.0; sodium 137, chloride 101, bicarbonate 20, BUN 51, creatinine 5.45. Impression: 71-year-old male admitted after presenting to [facility] ED with increased shortness of breath and difficulty breathing. CXR notable for LLL pneumonia. Surgical consultation placed for further evaluation of anemia, Hemoccult negative stool. The patient is notably thrombocytopenic (platelet count 65,000); and on apixaban for atrial fibrillation. In addition, the patient has end-stage renal disease requiring dialysis. Stool testing in the ER was negative for occult blood, however, on an outpatient basis the patient was determined to be Hemoccult positive. Due to these findings endoscopic evaluation has been requested. This has been discussed with the patient. EGD will be scheduled in the AM using IV medications. Risks include hemorrhage, aspiration, cramping abd pain, bloating and perforation. Diagnoses: Left lower lobe pneumonia Anemia COPD Coronary artery disease with prior CABG Diabetes mellitus; Diabetic vasculopathy/PVD Likely diabetic nephropathy with end-stage renal disease requiring dialysis Atrial fibrillation, chronic anticoagulation Severe thrombocytopenia Hypertension Hyperlipidemia History of tobacco abuse Past Med Surg Social Fam HX - Past Medical History Medical history: atrial fibrillation, COPD, coronary artery disease, CVA, diabetes, dialysis, hyperlipidemia, hypertension, myocardial infarction, renal disease, other Psychiatric history: other - Past Surgical History Surgical History: coronary bypass (CABG), other (left BKA) - Social History Smoking Status: Former smoker Smokeless Tobacco Status: No Alcohol use: occasionally Drug use: none - Family History Father Living Status: Age at : 62 Hx Family Respiratory Disorders: Yes Mother Hx Family Cardiac Disorders: Yes Hx Family Respiratory Disorders: No Hx Family Cancer: No Hx Family GI Disorders: No Hx Family Endocrine Disorder: No Hx Family Neuromuscular Disorders: No Hx Family Neurologic Disorders: No Hx Family HEENT Disorders: No Hx Family Autoimmune Disorders: No Medications and Allergies Albuterol Sulfate [Albuterol Inhaler] 2 puff IH QID PRN 09/02/16 [History] Apixaban [Eliquis] 5 mg PO BID 09/02/16 [History] Calcium Acetate [Phos-LO] 1,334 mg PO TID 09/02/16 [History] Gabapentin [Neurontin] 300 mg PO DAILY 09/02/16 [History] Isosorbide MONOnitrate (24 HR) [Imdur] 30 mg PO DAILY 09/02/16 [History] Multivitamin [Multivitamins] 1 tab PO DAILY 09/02/16 [History] Sevelamer [Renvela] 2,400 mg PO TIDWM 09/02/16 [History] Acetaminophen/Chlorpheniramine [Coricidin Hbp Cold & Flu Tab] 2 tab PO BID PRN 09/19/16 [History] Albuterol Neb [Proventil Neb] 2.5 mg IH BID PRN 09/19/16 [History] Budesonide/Formoterol 160/4.5 [Symbicort 160/4.5] 2 puff IH Q12H 09/19/16 [ History] Furosemide [Lasix] 40 mg PO DAILY 09/19/16 [History] Pantoprazole Sodium [Protonix] 40 mg PO DAILY 09/19/16 [History] Terazosin [Hytrin] 1 mg PO DAILY 10/26/16 [History] amLODIPine [Norvasc] 5 mg PO BID 10/26/16 [History] Carvedilol 3.125 mg PO BID 02/28/17 [History] Docusate [Colace] 100 mg PO BID 02/28/17 [History] Polyethylene Glycol 3350 [Smoothlax] 17 gm PO DAILY PRN 02/28/17 [History] Doxycycline Monohydrate [Mondoxyne Nl] 100 mg PO BID 05/19/17 [History] OxyCODONE Immed Rel [Roxicodone 5 MG] 5 mg PO DAILY PRN 05/19/17 [History] Oxycodone HCl 10 mg PO BID 05/19/17 [History] Allergies morphine Allergy (Verified 09/19/16 05:43) See Comments Review of Systems All systems PM: A 10-system review of systems was performed and is negative for pertinent findings except as documented above in the HPI. General Surgery Exam Initial Vital Signs Temp Pulse Resp BP Pulse Ox 98.3 F 84 18 152/68 90 05/19/17 14:26 05/19/17 14:26 05/19/17 14:26 05/19/17 14:26 05/19/17 14:26 Exam Initial Vital Signs Temp Pulse Resp BP Pulse Ox 98.3 F 84 18 152/68 90 05/19/17 14:26 05/19/17 14:26 05/19/17 14:26 05/19/17 14:26 05/19/17 14:26 Results - Labs 05/20/17 05:30 05/20/17 07:51 Abnormal lab results RBC 2.60 M/mcL (4.19-5.50) L 05/20/17 05:30 Hgb 7.6 g/dL (12.9-16.9) L 05/20/17 05:30 Hct 25.1 % (37.5-50.1) L 05/20/17 05:30 MCHC 30.3 g/dL (31.6-35.5) L 05/20/17 05:30 RDW 16.7 % (11.5-14.5) H 05/20/17 05:30 Plt Count 65 K/mcL (140-400) L 05/20/17 05:30 Immature Plt Fraction 15.5 % (1.1-6.1) H 05/20/17 05:30 VBG pCO2 55 mmHg (41-51) H 05/19/17 14:51 VBG pO2 53 mmHg (25-40) H 05/19/17 14:51 VBG HCO3 32.5 mEq/L (21-27) H 05/19/17 14:51 Potassium 7.0 mEq/L (3.5-4.5) H* 05/20/17 07:51 BUN 51 mg/dL (8-26) H 05/20/17 07:51 Creatinine 5.45 mg/dL (0.72-1.25) H 05/20/17 07:51 Est GFR ( Amer) 13 (> 60) L 05/20/17 07:51 Est GFR (Non-Af Amer) 10 (> 60) L 05/20/17 07:51 Glucose 113 mg/dL (70-99) H 05/20/17 07:51 POC Glucose 120 (58-89) H 05/20/17 08:21 Diabetes panel 05/20/17 Range/Units 07:51 Sodium 137 (136-145) mEq/L Potassium 7.0 H* (3.5-4.5) mEq/L Chloride 101 (98-109) mEq/L Carbon Dioxide 20 (19-29) mEq/L BUN 51 H (8-26) mg/dL Creatinine 5.45 H (0.72-1.25) mg/dL Glucose 113 H (70-99) mg/dL Calcium 9.4 (8.6-10.8) mg/dL Calcium panel 05/20/17 Range/Units 07:51 Calcium 9.4 (8.6-10.8) mg/dL Pituitary panel 05/20/17 Range/Units 07:51 Sodium 137 (136-145) mEq/L Potassium 7.0 H* (3.5-4.5) mEq/L Chloride 101 (98-109) mEq/L Carbon Dioxide 20 (19-29) mEq/L BUN 51 H (8-26) mg/dL Creatinine 5.45 H (0.72-1.25) mg/dL Glucose 113 H (70-99) mg/dL Calcium 9.4 (8.6-10.8) mg/dL Adrenal panel 05/20/17 Range/Units 07:51 Sodium 137 (136-145) mEq/L Potassium 7.0 H* (3.5-4.5) mEq/L Chloride 101 (98-109) mEq/L Carbon Dioxide 20 (19-29) mEq/L BUN 51 H (8-26) mg/dL Creatinine 5.45 H (0.72-1.25) mg/dL Glucose 113 H (70-99) mg/dL Calcium 9.4 (8.6-10.8) mg/dL All other labs normal. Consult Discharge Plan - Plan [facility]errals: [facility] [Primary Care Provider] -
--- NOTE | 2017-05-20 10:32 | Internal Med Progress Note ---
Date of Encounter: 05/20/17 Time of Encounter: 10:30 - Assessment and plan (1) ESRD (end stage renal disease) on dialysis Current Visit: Yes Status: Acute Assessment and plan: With acute hyperkalemia K -7.1 Emergent HD as per nephrology (2) HCAP (healthcare-associated pneumonia) Current Visit: Yes Status: Acute Assessment and plan: Patient with recurrent pneumonias Follow sputum, blood, cultures Continue triple therapy Patient with known vocal cord dysfunction and recurrent pneumonias, had refused bronch mutiple times in the past Continue O2 supplement prn (3) Hyperkalemia Current Visit: Yes Status: Acute Assessment and plan: As in ESRD Rpt Chem at 1900, after HD (4) Left lower lobe pneumonia Current Visit: Yes Status: Acute Assessment and plan: As in HCAP Qualifiers: Pneumonia type: due to unspecified organism Qualified Code(s): J18.1 - Lobar pneumonia, unspecified organism (5) Anemia of chronic disease Current Visit: Yes Status: Chronic Assessment and plan: Acute on chronic FOBT positive On eliquis for afib, and chronic thrombocytopenia Surgery following For EGD a.m Agree with holding eliquis for now (6) Diabetes mellitus, type 2 Current Visit: Yes Status: Chronic Assessment and plan: diabetic diet. check blood sugars ACHS sliding scale correction dose aCHS hypoglycemic protocol. Qualifiers: Diabetes mellitus complication status: with neurologic complications Diabetes mellitus complication detail: with polyneuropathy Diabetes mellitus manager terminal insulin use: without manager terminal use Qualified Code(s): E11.42 - Type 2 diabetes mellitus with diabetic polyneuropathy (7) PAF (paroxysmal atrial fibrillation) Current Visit: Yes Status: Chronic Assessment and plan: HR controlled (8) CHF (congestive heart failure) Current Visit: Yes Status: Chronic Qualifiers: Congestive heart failure type: diastolic Congestive heart failure chronicity: chronic Qualified Code(s): I50.32 - Chronic diastolic (congestive ) heart failure (9) CAD (coronary artery disease) Current Visit: Yes Status: Chronic Assessment and plan: Chronic, stable EKG showed some mild changes with ST depressions in the inferior lateral leads, this was reviewed by cardiology and they recommended no intervention at this time. Qualifiers: Coronary Disease-Associated Artery/Lesion type: [place] artery [place] vs. transplanted heart: [place] heart Associated angina: without angina Qualified Code(s): I25.10 - Atherosclerotic heart disease of [place] coronary artery without angina pectoris (10) Essential hypertension Current Visit: Yes Status: Chronic Assessment and plan: Controlled, continue current meds (11) Thrombocytopenia Current Visit: Yes Status: Chronic Assessment and plan: Chronic, stable - Subjective Interval history: 71 YO M with ESRD on HD, Afib on Eliquis, chronic thrombocytopenia, Hx of GIB, COPD, DM2, PVD, Anemia of chronic disease Admitted and being managed for HCAP and hyper[place]ia FOBT positive as out-patient and concerning for GIB Seen and evaluated at bedside No new complains Potassium today was 7.1, repeated was the same Patient is seen at bedside, asymptomatic EKG ordered calcium gluconate, insulin IV, kayexalate was ordered I spoke with Dr. Jung who is scheduling the patient for dialysis [facility] - Constitutional Vitals: Temp Pulse Resp BP Pulse Ox 97.7 F 90 18 147/69 96 05/20/17 08:01 05/20/17 08:01 05/20/17 08:01 05/20/17 08:01 05/20/17 08:19 General appearance: Present: A&O X 3, pleasant, no acute distress - Head Head exam: Present: atraumatic, normocephalic - Eye Eye exam: Present: PERRL, conjuntiva pink, sclera anicteric Pupils: Present: PERRL - Neck Neck exam general surgery: Present: supple, trachea midline. Absent: lymphadenopathy - Respiratory Respiratory exam: Present: decreased breath sounds (at the bases bilaterally), CTAB. Absent: accessory muscle use, rales, rhonchi, wheezes - Cardiovascular Cardiovascular exam: Present: irregular rhythm, RRR, +S1, +S2. Absent: diastolic murmur, gallop, rubs, systolic murmur - GI/Abdominal GI/Abdominal exam: Present: normal bowel sounds, soft, no peritoneal signs. Absent: distended, tenderness - Extremities Exam Extremities exam: Present: warm, radial pulses palpable and symmetrical. Absent : calf tenderness, cyanotic, pedal edema Additional comments: s/p L BKA, prosthesis in situ No pedal edema - Neurological Exam Neurological exam: Present: alert, CN II-XII intact, oriented X3, no focal deficits. Absent: pronater drift, facial droop, speech deficit - Skin Skin exam: Present: dry, intact Internal Medicine: Result - Labs CBC & Chem 7: 05/20/17 05:30 05/20/17 10:35 Labs: Short CBC 05/20/17 Range/Units 05:30 WBC 10.1 D (4.3-11.1) K/mcL Hgb 7.6 L (12.9-16.9) g/dL Hct 25.1 L (37.5-50.1) % Plt Count 65 L (140-400) K/mcL Neutrophils # 8.4 (1.6-8.9) K/mcL BMP 05/20/17 07:51 Sodium 137 Potassium 7.0 H* Chloride 101 Carbon Dioxide 20 BUN 51 H Creatinine 5.45 H Glucose 113 H Calcium 9.4 Cardiac Enzymes 05/19/17 05/20/17 Range/Units 22:06 07:51 Troponin I 0.01 0.02 (0-0.03) ng/mL - VTE Documentation of Mechanical Device: Graduated compression elastic hosiery Consult Discharge Plan - Plan Referrals: [facility] [Primary Care Provider] -
[2017-05-20] MEDS: Budesonide/Formoterol 160/4.5 MDI IH SCH ×2 (10:37→22:36)
[2017-05-20] MEDS ORDERED: Insulin Regular, Human 100 UNIT/ML SQ ONE (11:15)
[2017-05-20] MEDS ORDERED: Calcium Gluconate 1,000 MG in D5% in Water 100 ML IVPB ONE (11:16)
[2017-05-20] MEDS ORDERED: Insulin Human Regular 6 UNIT in 0.9 % Sodium Chloride 10 ML IV ONE (11:45)
[2017-05-20] MEDS ORDERED: 0.9 % Sodium Chloride 250 ML IVC PRN (11:47)
[2017-05-20] MEDS ORDERED: 0.9 % Sodium Chloride 1,000 ML PRIME SCH (12:00)
[2017-05-20] MEDS ORDERED: 0.9 % Sodium Chloride 2,000 ML ONE (13:23)
--- NOTE | 2017-05-20 14:14 | Cardiology Consult Note ---
<Adele Ochoa - Last Filed: 05/20/17 14:47> Date of Encounter: 05/20/17 Time of Encounter: 14:00 Assessment and Plan (1) Hyperkalemia Current Visit: Yes Status: Acute ECG, ST/T, changes in the setting of hyperkalemia--K 7.1; patient seen and examined while receiving emergent dialysis. Patient is chest pain free upon exam, denies chest pain or discomfort prior to admission. Recommend repeating ECG later today after HD, electrolyte correction. (2) CAD (coronary artery disease) Current Visit: Yes Status: Chronic Hx of CAD s/p CABG in 2007. Continue statin and betablocker. Has not been on ASA due to thrombocytopenia; on Eliquis prior to admission. Chest pain free. Follows with CT Line Repairer. Qualifiers: Coronary Disease-Associated Artery/Lesion type: [place] artery [place] vs. transplanted heart: [place] heart Associated angina: without angina Qualified Code(s): I25.10 - Atherosclerotic heart disease of [place] coronary artery without angina pectoris (3) PAF (paroxysmal atrial fibrillation) Current Visit: Yes Status: Chronic Hx of PAF, on betablocker. Previously anticoagulated on Eliquis, now on hold acute anemia secondary to suspected GI bleed--plan for EGD in AM. 1 unit PRBC ordered for today, recent positive occult stools. (4) HCAP (healthcare-associated pneumonia) Current Visit: Yes Status: Acute Left lower lobe PNA; likely etiology of symptoms in addition to acute anemia. Defer further mgmt to Primary service. Discussion w patient/family: The assessment and plan as outlined above was discussed with the patient and/or family members who expressed understanding and agreement. All questions were answered. Thank you for involving us in the care of your patient. Please call with any questions. The patient will be discussed and reviewed with Dr. Doyle; changes to be made accordingly. History of Present Illness Consult date: 05/20/17 Requesting physician: Chuck Marroquin Consult reason: ECG changes Chief complaint: Shortness of breath History of present illness: Mr. Lorenzana is a 71 year old male with PMHx significant for NM,CAD s/p CABG ( 2007), PAF, CVA, PAD, s/p Left BKA, ESRD on HD, DMII, and HLD who presented to [facility] from the ED with 4 week history of worsening shortness of breath. Upon arrival to ED, significant anemia was noted--reports dark colored stools over the past few weeks as well. CXR concerning for left lower lobe PNA. He denies any chest pain or discomfort. He routinely follows with CT Cardiology. Unfortunately, recent CV testing not available. Patient was examined today in dialysis--emergent HD ordered for Potassium of 7.1. Plan for EGD tomorrow with Dr. Kiser d/t anemia, HgB 7.3. Past Med Surg Social Fam HX - Past Medical History Attestation: Yes The following information was validated with the patient. Source: patient, old records reviewed Medical history: atrial fibrillation, COPD, coronary artery disease, CVA, diabetes, dialysis, hyperlipidemia, hypertension, myocardial infarction, renal disease Psychiatric history: other - Past Surgical History Surgical History: coronary bypass (CABG), other (left BKA) - Social History Smoking Status: Former smoker Smokeless Tobacco Status: No Alcohol use: occasionally Drug use: none - Family History Father Living Status: Age at : 62 Hx Family Respiratory Disorders: Yes Mother Hx Family Cardiac Disorders: Yes Hx Family Respiratory Disorders: No Hx Family Cancer: No Hx Family GI Disorders: No Hx Family Endocrine Disorder: No Hx Family Neuromuscular Disorders: No Hx Family Neurologic Disorders: No Hx Family HEENT Disorders: No Hx Family Autoimmune Disorders: No Medications and Allergies Albuterol Sulfate [Albuterol Inhaler] 2 puff IH QID PRN 09/02/16 [History] Apixaban [Eliquis] 5 mg PO BID 09/02/16 [History] Calcium Acetate [Phos-LO] 1,334 mg PO TID 09/02/16 [History] Gabapentin [Neurontin] 300 mg PO DAILY 09/02/16 [History] Isosorbide MONOnitrate (24 HR) [Imdur] 30 mg PO DAILY 09/02/16 [History] Multivitamin [Multivitamins] 1 tab PO DAILY 09/02/16 [History] Sevelamer [Renvela] 2,400 mg PO TIDWM 09/02/16 [History] Acetaminophen/Chlorpheniramine [Coricidin Hbp Cold & Flu Tab] 2 tab PO BID PRN 09/19/16 [History] Albuterol Neb [Proventil Neb] 2.5 mg IH BID PRN 09/19/16 [History] Budesonide/Formoterol 160/4.5 [Symbicort 160/4.5] 2 puff IH Q12H 09/19/16 [ History] Furosemide [Lasix] 40 mg PO DAILY 09/19/16 [History] Pantoprazole Sodium [Protonix] 40 mg PO DAILY 09/19/16 [History] Terazosin [Hytrin] 1 mg PO DAILY 10/26/16 [History] amLODIPine [Norvasc] 5 mg PO BID 10/26/16 [History] Carvedilol 3.125 mg PO BID 02/28/17 [History] Docusate [Colace] 100 mg PO BID 02/28/17 [History] Polyethylene Glycol 3350 [Smoothlax] 17 gm PO DAILY PRN 02/28/17 [History] Doxycycline Monohydrate [Mondoxyne Nl] 100 mg PO BID 05/19/17 [History] OxyCODONE Immed Rel [Roxicodone 5 MG] 5 mg PO DAILY PRN 05/19/17 [History] Oxycodone HCl 10 mg PO BID 05/19/17 [History] Allergies morphine Allergy (Verified 09/19/16 05:43) See Comments All Systems Review: A 10-system review of systems was performed and is negative for pertinent findings except as documented above in the HPI. - Cardiovascular Cardiovascular: as per HPI Physical Examination Vital Signs, Last 4 Hours Temp Pulse Resp BP Pulse Ox 05/20/17 13:45 98.9 F 69 16 95/48 05/20/17 13:30 97.1 F L 74 18 103/55 05/20/17 11:34 97.3 F L 74 18 127/60 99 General: Conversant (drowsy), No Apparent Distress HEENT: Atraumatic, Normocephaly Cardiac: Reg Rate and Rhythm, Normal S1 and S2 Lungs: Other (Diminished bibasilar) Neuro: Alert and responsive (drowsy) Abdomen: Soft Extremities: Other (Left BKA; several scabs left [place]. ) Results 05/20/17 05:30 05/20/17 10:35 Lab Results 05/19/17 05/20/17 05/20/17 22:06 05:30 07:51 WBC 10.1 D Hgb 7.6 L Hct 25.1 L Plt Count 65 L Sodium Potassium Chloride Carbon Dioxide BUN Creatinine Glucose Calcium Troponin I 0.01 0.02 05/20/17 05/20/17 07:51 10:35 WBC Hgb Hct Plt Count Sodium 137 Potassium 7.0 H* 7.1 H* Chloride 101 Carbon Dioxide 20 BUN 51 H Creatinine 5.45 H Glucose 113 H Calcium 9.4 Troponin I Active Medications Acetaminophen (Tylenol) 650 mg PO Q6HR PRN PRN Reason: Mild Pain (1-3) Stop: 11/18/17 17:41 Albuterol Sulfate (Proventil Neb) 2.5 mg IH Q2H PRN PRN Reason: Shortness Of Breath/Wheezing Stop: 11/18/17 19:15 Albuterol/Ipratropium (Duoneb) 3 ml IH QIDR [facility] Stop: 11/18/17 23:01 Last Admin: 05/20/17 10:37 Dose: 3 ml Amlodipine Besylate (Norvasc) 5 mg PO BID [facility] PRN Reason: Protocol Stop: 11/18/17 21:01 Last Admin: 05/20/17 08:15 Dose: 5 mg Budesonide/Formoterol Fumarate (Symbicort) 2 puff IH [id number] [facility] PRN Reason: Protocol Stop: 11/18/17 18:01 Last Admin: 05/20/17 10:37 Dose: 2 puff Calcium Acetate (Phos-Lo) 1,334 mg PO TID [facility] Stop: 11/18/17 21:01 Last Admin: 05/20/17 12:27 Dose: 1,334 mg Carvedilol (Coreg) 3.125 mg PO BID [facility] Stop: 11/18/17 21:01 Last Admin: 05/20/17 08:17 Dose: 3.125 mg Docusate Sodium (Colace) 100 mg PO BID PRN PRN Reason: Constipation Stop: 11/18/17 17:41 Furosemide (Lasix) 40 mg PO DAILY [facility] Stop: 11/19/17 09:01 Last Admin: 05/20/17 08:15 Dose: 40 mg Gabapentin (Neurontin) 300 mg PO DAILY [facility] Stop: 11/19/17 09:01 Last Admin: 05/20/17 08:15 Dose: 300 mg Levofloxacin/Dextrose (Levaquin Premix 500mg/100ml) 500 mg in 100 mls @ 100 mls /hr IVPB Q48H [facility] PRN Reason: Protocol Stop: 11/20/17 17:01 Vancomycin HCl 1 each/ (Dextrose) 250 mls @ 167 mls/hr IVPB RPHPROT [facility] PRN Reason: Protocol Stop: 11/18/17 20:01 Piperacillin Sod/Tazobactam (Sod 3.375 gm/ Dextrose) 100 mls @ 25 mls/hr IVPB Q12H [facility] Stop: 11/19/17 04:01 Last Infusion: 05/20/17 07:31 Dose: Infused Sodium Chloride (0.9 % Sodium Chloride) 250 mls @ 937.5 mls/hr IVC .Q16M PRN PRN Reason: Hypotension Stop: 11/19/17 11:48 Sodium Chloride (0.9 % Sodium Chloride) 1,000 mls @ 0 mls/hr PRIME .Q0M [facility] PRN Reason: As Directed Stop: 11/19/17 12:01 Insulin Human Lispro (Humalog) 0 units SQ TIDAC [facility] PRN Reason: Protocol Stop: 11/19/17 07:31 Last Admin: 05/20/17 11:47 Dose: 6 units Insulin Human Lispro (Humalog) 0 units SQ HS [facility] PRN Reason: Protocol Stop: 11/18/17 21:01 Last Admin: 05/19/17 22:21 Dose: 5 units Isosorbide Mononitrate (Imdur) 30 mg PO DAILY [facility] Stop: 11/19/17 09:01 Last Admin: 05/20/17 08:14 Dose: 30 mg Naloxone HCl (Narcan) 0.4 mg IVP Q2MIN PRN PRN Reason: Opioid Reversal Stop: 11/18/17 17:41 Omeprazole (Prilosec) 20 mg PO 0630 [facility] Stop: 11/19/17 06:31 Last Admin: 05/20/17 06:09 Dose: 20 mg Ondansetron HCl (Zofran) 4 mg IVP Q8HR PRN PRN Reason: Nausea And Vomiting Stop: 11/18/17 17:41 Last Admin: 05/19/17 22:21 Dose: 4 mg Oxycodone HCl (Roxicodone) 10 mg PO BID [facility] Stop: 11/18/17 21:01 Last Admin: 05/20/17 08:15 Dose: 10 mg Oxycodone HCl (Roxicodone) 5 mg PO DAILY PRN PRN Reason: Breakthrough Pain Stop: 11/18/17 17:57 Polyethylene Glycol (Miralax) 17 gm PO DAILY PRN PRN Reason: Constipation Stop: 11/18/17 17:57 Sevelamer HCl (Renvela) 2,400 mg PO TIDWM [facility] Stop: 11/19/17 08:01 Last Admin: 05/20/17 11:58 Dose: 2,400 mg Terazosin HCl (Hytrin) 1 mg PO DAILY [facility] Stop: 11/19/17 09:01 Last Admin: 05/20/17 08:15 Dose: 1 mg Impressions Chest X-Ray 05/19/17 15:01 IMPRESSION: Findings concerning for left lower lobe pneumonia D/ / Anil Rodríguez MD / Anil Rodríguez MD Interpreting Provider: Anil Rodríguez MD - Imaging and Cardiology Other Results: 12 hour tele: avg HR=78 SR. Brief episode of PAF noted. - EKG Interpretation EKG results cardiology: personally reviewed Consult Discharge Plan - Plan [facility]errals: [facility]Primary Care Provider[facility] - <AnjanaeddWen - Last Filed: 05/21/17 09:22> Date of Encounter: 05/21/17 Assessment and Plan Discussion w patient/family: The assessment and plan as outlined above was discussed with the patient and/or family members who expressed understanding and agreement. All questions were answered. Thank you for involving us in the care of your patient. Please call with any questions. History of Present Illness History of present illness: Mr. Lorenzana is a 71 year old male All Systems Review: A 10-system review of systems was performed and is negative for pertinent findings except as documented above in the HPI. Physical Examination Vital Signs, Last 4 Hours Temp Pulse Resp BP Pulse Ox 05/21/17 08:40 99 16 142/80 98 05/21/17 08:35 96 16 132/77 89 05/21/17 08:30 94 16 149/83 93 05/21/17 07:57 86 18 147/79 95 05/21/17 07:49 94 18 148/74 98 05/21/17 07:30 98.2 F 94 18 148/74 98 Results 05/21/17 04:43 05/21/17 04:43 Lab Results 05/20/17 05/20/17 05/20/17 07:51 10:35 19:23 WBC Hgb Hct Plt Count INR Sodium 137 142 Potassium 7.0 H* 7.1 H* 5.0 H D Chloride 101 103 Carbon Dioxide 20 27 BUN 51 H 25 D Creatinine 5.45 H 3.40 H Glucose 113 H 136 H Calcium 9.4 8.7 05/21/17 05/21/17 05/21/17 04:43 04:43 04:43 WBC 5.0 D Hgb 8.1 L Hct 26.8 L Plt Count 59 L INR 1.9 Sodium 139 Potassium 4.7 H Chloride 98 Carbon Dioxide 32 H BUN 29 H Creatinine 4.38 H Glucose 229 H Calcium 9.2 - Attending Attestation Stopped by to see patient multiple times but was not in room. Patient down for EGD this morning for dark stool and Hgb 7.3. Reviewed [employer] note and agree with recommendations. Presented with subtle nonspecific ECG changes in setting of hyperkalemia and anemia. He described being chest pain free. Troponins negative. No further testing is warranted in this setting (anemia and thrombocytopenia). He wasn't on aspirin due to thrombocytopenia and eliquis has been stopped due to concerns for GIB. [facility]. Recommend he follow up with CT cardiology or [place] for outpatient care. Will sign off. Please call with questions.
[2017-05-20 15:55] LABS: Hepatitis B Surface Antigen Nonreactive (Nonreactive)
[2017-05-20 20:03] LABS: Calcium 8.7 mg/dL (8.6-10.8)
[2017-05-20] MEDS ORDERED: Vancomycin 1,000 MG in D5% in Water 250 ML IVPB ONE (21:08)
[2017-05-21] MEDS: Ipratropium/Albuterol Neb 3 ML IH SCH ×4 (04:55→22:31)
[2017-05-21 05:48] LABS: Immature Granulocytes % 0.4 % (0-4)
[2017-05-21 05:51] LABS: Basophils % 0.2 %; Eosinophils % 10.9 %; Hematocrit 26.8 % (37.5-50.1); Hemoglobin 8.1 g/dL (12.9-16.9); Immature Platelets 14.5 % (1.1-6.1); Lymphocytes # 0.5 K/mcL (0.6-4.6); Lymphocytes % 9.3 %; Mean Corpuscular HGB Conc 30.2 g/dL (31.6-35.5); Mean Corpuscular Volume 96.1 fL (83.0-100.0); Monocytes # 0.4 K/mcL (0.0-1.3); Monocytes % 8.7 %; Neutrophils # 3.5 K/mcL (1.6-8.9); Red Blood Count 2.79 M/mcL (4.19-5.50); Red Cell Distribution Width 17.7 % (11.5-14.5); Segmented Neutrophils % 70.5 %
[2017-05-21 05:53] LABS: INR 1.9; Prothrombin Time 20.9 Seconds (9.4-12.1)
[2017-05-21 05:58] LABS: Eosinophils # 0.6 K/mcL (0.0-0.6); Platelet Count 59 K/mcL (140-400)
[2017-05-21 06:00] LABS: Calcium 9.2 mg/dL (8.6-10.8); Potassium 4.7 mEq/L (3.5-4.5)
[2017-05-21] MEDS: Piperacillin/Tazobactam 3.375 GM in D5% in Water (Mini-Bag+) 100 ML IVPB SCH ×2 (06:07→16:36)
[2017-05-21] MEDS ORDERED: *HR* Midazolam HCl 5 MG/5 ML VIAL IVP ONE (07:28)
[2017-05-21] MEDS ORDERED: *HR* FentaNYL (PF) 100 MCG/2 ML VIAL ONE (07:28)
--- NOTE | 2017-05-21 07:59 | Event Note ---
Date of Encounter: 05/21/17 Time of Encounter: 07:58 Attempted to see patient. Off floor for EGD. Will see tomorrow. K 4.7 following urgent HD yesterday.
[2017-05-21] MEDS ORDERED: 0.9 % Sodium Chloride 500 ML IVC SCH (08:00)
[2017-05-21] MEDS ORDERED: *HR* FentaNYL (PF) 100 MCG/2 ML VIAL IVP PRN (08:25)
[2017-05-21] MEDS ORDERED: *HR* Midazolam HCl 5 MG/5 ML VIAL IVP PRN (08:25)
[2017-05-21] MEDS ORDERED: Tetracaine/Benzocaine/Butamben 200MG/SPRAY (100SPY/BOT) MM ONE (08:25)
[2017-05-21] MEDS ORDERED: Simethicone 40 MG/0.6 ML MLS IR ONE (08:25)
--- NOTE | 2017-05-21 08:25 | Pre-Sedation Evaluation ---
Pre-sedation evaluation - Pre-sedation checklist Date of procedure: 05/21/17 Procedure: EGD Recent Vitals: Last Vital Signs Temp 98.2 F 05/21/17 07:30 Pulse 86 05/21/17 07:57 Resp 18 05/21/17 07:57 BP 147/79 05/21/17 07:57 Pulse Ox 95 05/21/17 07:57 H&P (including ROS) documented in medical record: Yes Previous reaction to sedatives/anesthetics: No Dietary Status: Clear fluids after Midnight Airway Assessment: Patient can open mouth completely, TMJ function normal, Micrognathia (under-bite, receding chin) absent, Neck with adequate range of motion Dentition: dentures removed Possible difficult airway: No ASA Classification *see protocol: CLASS IV-Severe systemic disease/constant threat to pt's life
[2017-05-21] MEDS: Furosemide 40 MG TABLET PO SCH (09:06)
[2017-05-21] MEDS: Calcium Acetate 667 MG CAPSULE PO SCH ×3 (09:06→16:36)
[2017-05-21] MEDS: *HR* OxyCODONE Immed Rel 5 MG TABLET PO SCH ×2 (09:06→20:25)
[2017-05-21] MEDS: Isosorbide MONOnitrate (24 HR) 30 MG TAB.ER.24H PO SCH (09:07)
[2017-05-21] MEDS: Gabapentin 300 MG CAPSULE PO SCH (09:07)
[2017-05-21] MEDS: amLODIPine 5 MG TABLET PO SCH ×2 (09:07→20:25)
[2017-05-21] MEDS: Insulin LISPRO 300 UNITS/3 ML VIAL SQ SCH ×4 (09:18→21:23)
[2017-05-21] MEDS ORDERED: Aminoglycoside Consult 1 EACH MC ONE (09:23)
[2017-05-21] MEDS: Budesonide/Formoterol 160/4.5 MDI IH SCH ×2 (10:44→22:30)
--- NOTE | 2017-05-21 10:50 | Internal Med Progress Note ---
Date of Encounter: 05/21/17 Time of Encounter: 10:50 - Assessment and plan (1) ESRD (end stage renal disease) on dialysis Current Visit: Yes Status: Acute Assessment and plan: Electrolytes improved Continue HD as scheduled Renal is following (2) HCAP (healthcare-associated pneumonia) Current Visit: Yes Status: Acute Assessment and plan: Patient with recurrent pneumonias Follow sputum, blood, cultures Continue triple therapy Patient with known vocal cord dysfunction and recurrent pneumonias, had refused bronch mutiple times in the past Continue O2 supplement prn (3) Hyperkalemia Current Visit: Yes Status: Acute Assessment and plan: improved (4) Left lower lobe pneumonia Current Visit: Yes Status: Acute Assessment and plan: As in HCAP Qualifiers: Pneumonia type: due to unspecified organism Qualified Code(s): J18.1 - Lobar pneumonia, unspecified organism (5) Anemia of chronic disease Current Visit: Yes Status: Chronic Assessment and plan: HB stable S/P EGD with gastric polyp and erosions, no biopsy taken On eliquis for afib, and chronic thrombocytopenia Continue PPI Resume Eliquis (6) Diabetes mellitus, type 2 Current Visit: Yes Status: Chronic Assessment and plan: diabetic diet. check blood sugars ACHS sliding scale correction dose aCHS hypoglycemic protocol. Qualifiers: Diabetes mellitus complication status: with neurologic complications Diabetes mellitus complication detail: with polyneuropathy Diabetes mellitus medical terminologist insulin use: without usp use Qualified Code(s): E11.42 - Type 2 diabetes mellitus with diabetic polyneuropathy (7) PAF (paroxysmal atrial fibrillation) Current Visit: Yes Status: Chronic Assessment and plan: HR controlled (8) CHF (congestive heart failure) Current Visit: Yes Status: Chronic Assessment and plan: Euvolemic at this time Qualifiers: Congestive heart failure type: diastolic Congestive heart failure chronicity: chronic Qualified Code(s): I50.32 - Chronic diastolic (congestive ) heart failure (9) CAD (coronary artery disease) Current Visit: Yes Status: Chronic Assessment and plan: Chronic, stable EKG showed some mild changes with ST depressions in the inferior lateral leads, this was reviewed by cardiology and they recommended no intervention at this time. Qualifiers: Coronary Disease-Associated Artery/Lesion type: [place] artery [place] vs. transplanted heart: [place] heart Associated angina: without angina Qualified Code(s): I25.10 - Atherosclerotic heart disease of [place] coronary artery without angina pectoris (10) Essential hypertension Current Visit: Yes Status: Chronic Assessment and plan: Controlled, continue current meds (11) Thrombocytopenia Current Visit: Yes Status: Chronic Assessment and plan: Chronic, stable - Subjective Interval history: 71 YO M with ESRD on HD, Afib on Eliquis, chronic thrombocytopenia, Hx of GIB, COPD, DM2, PVD, Anemia of chronic disease Admitted and being managed for HCAP and hyperkelamia Seen and evaluated at bedside No new complains Potassium is now WNL s/p EGD with evidence of gastric polyp with esophagitis, started on PPI His blood pressure has been slightly uncontrolled Sputum culture is pending Blood culture no growth He otherwise denies new complains - Constitutional Vitals: Temp Pulse Resp BP Pulse Ox 97.7 F 100 100 185/106 98 05/21/17 09:15 05/21/17 09:15 05/21/17 10:47 05/21/17 10:10 05/21/17 10:47 General appearance: Present: A&O X 3, pleasant, no acute distress - Head Head exam: Present: atraumatic, normocephalic - Eye Eye exam: Present: PERRL, conjuntiva pink, sclera anicteric Pupils: Present: PERRL - Neck Neck exam general surgery: Present: supple, trachea midline. Absent: lymphadenopathy - Respiratory Respiratory exam: Present: CTAB. Absent: accessory muscle use, rales, rhonchi, wheezes - Cardiovascular Cardiovascular exam: Present: RRR, +S1, +S2. Absent: diastolic murmur, gallop, rubs, systolic murmur - GI/Abdominal GI/Abdominal exam: Present: normal bowel sounds, soft, no peritoneal signs. Absent: distended, tenderness - Extremities Exam Extremities exam: Present: warm, radial pulses palpable and symmetrical. Absent : calf tenderness, cyanotic, pedal edema Additional comments: s/p R BKA with prosthesis - Neurological Exam Neurological exam: Present: alert, CN II-XII intact, oriented X3, no focal deficits. Absent: pronater drift, facial droop, speech deficit - Skin Skin exam: Present: dry, intact Internal Medicine: Result - Labs CBC & Chem 7: 05/21/17 04:43 05/21/17 04:43 Labs: Short CBC 05/21/17 Range/Units 04:43 WBC 5.0 D (4.3-11.1) K/mcL Hgb 8.1 L (12.9-16.9) g/dL Hct 26.8 L (37.5-50.1) % Plt Count 59 L (140-400) K/mcL Neutrophils # 3.5 (1.6-8.9) K/mcL BMP 05/20/17 05/20/17 05/21/17 10:35 19:23 04:43 Sodium 142 139 Potassium 7.1 H* 5.0 H D 4.7 H Chloride 103 98 Carbon Dioxide 27 32 H BUN 25 D 29 H Creatinine 3.40 H 4.38 H Glucose 136 H 229 H Calcium 8.7 9.2 - ABG Interpretation ABG results: PT/INR, D-dimer PT 20.9 Seconds (9.4-12.1) H 05/21/17 04:43 - VTE Documentation of Mechanical Device: Graduated compression elastic hosiery Consult Discharge Plan - Plan [facility]errals: [facility] [Primary Care Provider] -
--- NOTE | 2017-05-21 12:20 | Electrocardiograph Report ---
[address] [place] [address] Test Date: 2017-05-19 Pat Name: Ailyn Lorenzana Department: 102 Room: 2A Gender: M Delivery Specialist: Am : 1945 Requested By: Chuck Marroquin Order Number: [id number] Reading MD: Wen Doyle Measurements Intervals [place] Rate: 76 P: [place]: 0 QRS: 11 QRSD: 94 T: 214 QT: 398 QTc: 429 Interpretive Statements ATRIAL FIBRILLATION DIFFUSE NONSPECIFIC ST-T ABNORMALITIES Electronically Signed On 05-21-2017 12:19:08 EDT by Wen Doyle
--- NOTE | 2017-05-21 13:11 | Electrocardiograph Report ---
[place] [id number] Test Date: 2017-05-20 Pat Name: Ailyn Lorenzana Department: 112 Room: [facility] Gender: M Principal Technical Architect: : 1945 Requested By: Tevin Tim Order Number: [id number] Reading MD: Wen Doyle Measurements Intervals [place] Rate: 77 P: [place]: 0 QRS: 70 QRSD: 93 T: 125 QT: 395 QTc: 426 Interpretive Statements ATRIAL FIBRILLATION NONSPECIFIC ST & T-WAVE ABNORMALITY ARTIFACT LEAD V2 Electronically Signed On 05-21-2017 13:10:13 EDT by Wen Doyle
[2017-05-21] MEDS: Levofloxacin 500 MG/100 ML 500 MG/100 ML BAG IVPB SCH (16:37)
--- NOTE | 2017-05-21 17:53 | Electrocardiograph Report ---
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
[2017-05-21] MEDS: Pantoprazole 40 MG VIAL IVP SCH (18:01)
[2017-05-21] MEDS: APIXABAN 5 MG TABLET PO SCH (20:25)
[2017-05-21] MEDS ORDERED: Vancomycin 1,000 MG in D5% in Water 250 ML IVPB ONE (23:00)
[2017-05-22] MEDS: Piperacillin/Tazobactam 3.375 GM in D5% in Water (Mini-Bag+) 100 ML IVPB SCH ×2 (04:09→15:35)
[2017-05-22] MEDS: Pantoprazole 40 MG VIAL IVP SCH ×2 (04:10→17:43)
[2017-05-22] MEDS: Ipratropium/Albuterol Neb 3 ML IH SCH ×4 (06:37→22:17)
[2017-05-22 07:02] LABS: Red Cell Distribution Width 17.4 % (11.5-14.5)
[2017-05-22 07:04] LABS: Hematocrit 25.6 % (37.5-50.1); Immature Platelets 14.1 % (1.1-6.1); Mean Corpuscular HGB Conc 31.3 g/dL (31.6-35.5); Mean Corpuscular Hemoglobin 29.3 pg (28.0-33.3); Mean Corpuscular Volume 93.8 fL (83.0-100.0); Red Blood Count 2.73 M/mcL (4.19-5.50)
[2017-05-22 07:05] LABS: Platelet Count 58 K/mcL (140-400)
[2017-05-22 07:19] LABS: Calcium 9.2 mg/dL (8.6-10.8)
[2017-05-22 07:36] LABS: Potassium 6.2 mEq/L (3.5-4.5)
--- NOTE | 2017-05-22 08:10 | Nephrology Progress Note ---
Date of Encounter: 05/22/17 Time of Encounter: 08:08 - Assessment and Plan (1) ESRD (end stage renal disease) Current Visit: No Status: Chronic Patient will undergo dialysis today on a 2K bath. We will check iron levels. He will be resumed on his Aranesp. Continue to monitor the hemoglobin. (2) Atrial fibrillation Current Visit: No Status: Chronic Qualifiers: Atrial fibrillation type: paroxysmal Qualified Code(s): I48.0 - Paroxysmal atrial fibrillation (3) GI bleeding Current Visit: No Status: Acute Qualifiers: GI bleed type/associated pathology: unspecified peptic ulcer Qualified Code (s): K27.4 - Chronic or unspecified peptic ulcer, site unspecified, with hemorrhage (4) Hyperkalemia Current Visit: No Status: Acute Subjective Interval history: Patient denies any new complaints. He currently is not complaining of any shortness of breath or cough. Hemoglobin has been stable for the past 2 days. Potassium is back up to 6.2. Patient is scheduled for dialysis this morning. Objective - Vital Signs Vital signs: Vital Signs Temp Pulse Resp BP Pulse Ox 05/22/17 07:06 98.2 F 91 16 176/89 96 05/22/17 06:58 96 05/22/17 04:31 98.1 F 88 17 123/74 83 05/22/17 00:53 98.2 F 78 17 138/76 99 05/21/17 20:41 98.2 F 74 16 135/70 96 05/21/17 16:04 16 98 05/21/17 15:41 97.6 F 77 16 132/81 98 05/21/17 11:24 97.5 F L 82 16 165/92 93 05/21/17 10:47 100 98 05/21/17 10:10 185/106 05/21/17 09:15 97.7 F 100 100 174/105 05/21/17 08:40 99 16 142/80 98 05/21/17 08:35 96 16 132/77 89 05/21/17 08:30 94 16 149/83 93 Intake and Output 05/21/17 05/22/17 05/22/17 23:59 07:59 15:59 Intake Total 100 / 100 Balance 100 / 100 Intake: IV Fluids 100 / 100 Zosyn 3.375 GM In 100 / 100 Dextrose 5% (Minibag+) 100 ML 100 ML @ 25 mls/hr IVPB Q12H [facility] Rx#: [id number] Other: Weight 71.92 kg Blood Glucose* 251 150 Patient Weight 05/22/17 23:59 Weight 71.92 kg - General Appearance Exam: Patient is alert and oriented. He is in no acute distress. Lung sounds in the bases especially on the left. Heart irregular rate and rhythm. Abdomen is benign. Patient is status post left below-knee amputation. There is no lower extremity swelling. There is a functioning AV fistula in the left upper extremity. - Lab 05/22/17 06:53 05/22/17 06:53 Most recent lab results Calcium 9.2 mg/dL (8.6-10.8) 05/22/17 06:53 - VTE Documentation of Mechanical Device: Graduated compression elastic hosiery Consult Discharge Plan - Plan Referrals: [facility] [Primary Care Provider] -
[2017-05-22] MEDS ORDERED: 0.9 % Sodium Chloride 250 ML IVC PRN (08:11)
[2017-05-22] MEDS ORDERED: Darbepoetin 100 MCG/0.5 ML SYRINGE SQ SCH (08:15)
[2017-05-22] MEDS: Isosorbide MONOnitrate (24 HR) 30 MG TAB.ER.24H PO SCH (08:26)
[2017-05-22] MEDS: Gabapentin 300 MG CAPSULE PO SCH (08:26)
[2017-05-22] MEDS: *HR* OxyCODONE Immed Rel 5 MG TABLET PO SCH ×2 (08:27→21:37)
[2017-05-22] MEDS: Furosemide 40 MG TABLET PO SCH (08:27)
[2017-05-22] MEDS: Calcium Acetate 667 MG CAPSULE PO SCH ×3 (08:27→17:43)
[2017-05-22] MEDS: APIXABAN 5 MG TABLET PO SCH ×2 (08:27→21:37)
[2017-05-22] MEDS: Insulin LISPRO 300 UNITS/3 ML VIAL SQ SCH ×4 (08:28→21:39)
[2017-05-22 09:05] LABS: Calcium 9.4 mg/dL (8.6-10.8); Potassium 6.2 mEq/L (3.5-4.5)
--- NOTE | 2017-05-22 10:10 | Internal Med Progress Note ---
<UzielFamilia - Last Filed: 05/22/17 14:27> Date of Encounter: 05/22/17 Time of Encounter: 10:08 - Assessment and plan (1) HCAP (healthcare-associated pneumonia) Current Visit: Yes Status: Acute Assessment and plan: CXR showed left lower lobe pneumonia. Patient with recurrent pneumonias Plan: blood cultures remain negative. sputum cultures pending. Continue zosyn, levaquin. de-escalated vancomycin today. Patient with known vocal cord dysfunction and recurrent pneumonias, had refused bronch mutiple times in the past Continue O2 supplement prn (2) ESRD (end stage renal disease) on dialysis Current Visit: Yes Status: Acute Assessment and plan: Electrolytes improved Continue HD as scheduled MWF. Renal is following (3) Hyperkalemia Current Visit: Yes Status: Acute Assessment and plan: continue dialysis regularly scheduled. (4) Left lower lobe pneumonia Current Visit: Yes Status: Acute Assessment and plan: plan as above Qualifiers: Pneumonia type: due to unspecified organism Qualified Code(s): J18.1 - Lobar pneumonia, unspecified organism (5) Anemia of chronic disease Current Visit: Yes Status: Chronic Assessment and plan: HB stable patient had one unit blood transfused during his hospital stay. S/P EGD with multiple gastric polyps and erosions, esophagitis, no biopsy taken On eliquis for afib, and chronic thrombocytopenia Continue PPI and eliquis (6) Diabetes mellitus, type 2 Current Visit: Yes Status: Chronic Assessment and plan: low dose SSI with ACHS accuchecks. Qualifiers: Diabetes mellitus complication status: with neurologic complications Diabetes mellitus complication detail: with polyneuropathy Diabetes mellitus attending anesthesiologist insulin use: without group home use Qualified Code(s): E11.42 - Type 2 diabetes mellitus with diabetic polyneuropathy (7) CHF (congestive heart failure) Current Visit: Yes Status: Chronic Assessment and plan: Euvolemic at this time continue home meds. Qualifiers: Congestive heart failure type: diastolic Congestive heart failure chronicity: chronic Qualified Code(s): I50.32 - Chronic diastolic (congestive ) heart failure (8) Essential hypertension Current Visit: Yes Status: Chronic Assessment and plan: continue home meds. (9) Thrombocytopenia Current Visit: Yes Status: Chronic Assessment and plan: Chronic, stable (10) CAD (coronary artery disease) Current Visit: Yes Status: Chronic Assessment and plan: Chronic, stable s/p CABG EKG showed some mild changes with ST depressions in the inferior lateral leads, this was reviewed by cardiology and they recommended no intervention Qualifiers: Coronary Disease-Associated Artery/Lesion type: [place] artery [place] vs. transplanted heart: [place] heart Associated angina: without angina Qualified Code(s): I25.10 - Atherosclerotic heart disease of [place] coronary artery without angina pectoris (11) PAF (paroxysmal atrial fibrillation) Current Visit: Yes Status: Chronic Assessment and plan: Eliquis (12) DVT prophylaxis Current Visit: Yes Status: Acute Assessment and plan: on Eliquis - Subjective Interval history: 71 year old male evaluated at bedside during dialysis. HE denies nausea, vomiting, diarrhea, fever, chills, chest pain, shortness of breath. - Constitutional Vitals: Temp Pulse Resp BP Pulse Ox 98.2 F 91 16 176/89 96 05/22/17 07:06 05/22/17 07:06 05/22/17 07:06 05/22/17 07:06 05/22/17 07:06 General appearance: Present: A&O X 3, pleasant, no acute distress - Head Head exam: Present: atraumatic, normocephalic - Neck Neck exam general surgery: Present: supple, trachea midline - Respiratory Additional comments: decreased breath sounds on right lower lobe. left lower lobe rales. - Cardiovascular Cardiovascular exam: Present: irregular rhythm - GI/Abdominal GI/Abdominal exam: Present: soft, no peritoneal signs. Absent: distended, tenderness - Extremities Exam Additional comments: left BKA right leg, chronic sores - Neurological Exam Neurological exam: Present: alert, oriented X3, no focal deficits - Psychiatric Psychiatric exam: Present: normal affect, normal mood - Skin Skin exam: Present: intact Internal Medicine: Result - Labs CBC & Chem 7: 05/22/17 06:53 05/22/17 08:42 Labs: Short CBC 05/22/17 Range/Units 06:53 WBC 8.2 D (4.3-11.1) K/mcL Hgb 8.0 L (12.9-16.9) g/dL Hct 25.6 L (37.5-50.1) % Plt Count 58 L (140-400) K/mcL BMP 05/22/17 05/22/17 06:53 08:42 Sodium 139 139 Potassium 6.2 H D 6.2 H Chloride 104 102 Carbon Dioxide 22 25 BUN 39 H D 39 H Creatinine 6.62 H D 6.69 H Glucose 160 H 172 H Calcium 9.2 9.4 - ABG Interpretation ABG results: PT/INR, D-dimer PT 20.9 Seconds (9.4-12.1) H 05/21/17 04:43 - VTE Documentation of Mechanical Device: Graduated compression elastic hosiery Consult Discharge Plan - Plan [facility]errals: [facility] Care Provider[facility] - <Tevin Tim - Last Filed: 05/22/17 17:15> Date of Encounter: 05/22/17 - Assessment and plan (1) ESRD (end stage renal disease) on dialysis Current Visit: Yes Status: Acute (2) HCAP (healthcare-associated pneumonia) Current Visit: Yes Status: Acute (3) Hyperkalemia Current Visit: Yes Status: Acute (4) Left lower lobe pneumonia Current Visit: Yes Status: Acute Qualifiers: Pneumonia type: due to unspecified organism Qualified Code(s): J18.1 - Lobar pneumonia, unspecified organism (5) Anemia of chronic disease Current Visit: Yes Status: Chronic (6) Diabetes mellitus, type 2 Current Visit: Yes Status: Chronic Qualifiers: Diabetes mellitus complication status: with neurologic complications Diabetes mellitus complication detail: with polyneuropathy Diabetes mellitus attending anesthesiologist insulin use: without attending anesthesiologist use Qualified Code(s): E11.42 - Type 2 diabetes mellitus with diabetic polyneuropathy (7) PAF (paroxysmal atrial fibrillation) Current Visit: Yes Status: Chronic (8) CHF (congestive heart failure) Current Visit: Yes Status: Chronic Qualifiers: Congestive heart failure type: diastolic Congestive heart failure chronicity: chronic Qualified Code(s): I50.32 - Chronic diastolic (congestive ) heart failure (9) CAD (coronary artery disease) Current Visit: Yes Status: Chronic Qualifiers: Coronary Disease-Associated Artery/Lesion type: [place] artery [place] vs. transplanted heart: [place] heart Associated angina: without angina Qualified Code(s): I25.10 - Atherosclerotic heart disease of [place] coronary artery without angina pectoris (10) Essential hypertension Current Visit: Yes Status: Chronic (11) Thrombocytopenia Current Visit: Yes Status: Chronic - Constitutional Vitals: Temp Pulse Resp BP Pulse Ox 98.4 F 91 16 156/68 99 05/22/17 15:47 05/22/17 15:47 05/22/17 15:47 05/22/17 15:47 05/22/17 15:47 Internal Medicine: Result - Labs CBC & Chem 7: 05/22/17 06:53 05/22/17 08:42 Labs: Short CBC 05/22/17 Range/Units 06:53 WBC 8.2 D (4.3-11.1) K/mcL Hgb 8.0 L (12.9-16.9) g/dL Hct 25.6 L (37.5-50.1) % Plt Count 58 L (140-400) K/mcL BMP 05/22/17 05/22/17 06:53 08:42 Sodium 139 139 Potassium 6.2 H D 6.2 H Chloride 104 102 Carbon Dioxide 22 25 BUN 39 H D 39 H Creatinine 6.62 H D 6.69 H Glucose 160 H 172 H Calcium 9.2 9.4 - ABG Interpretation ABG results: PT/INR, D-dimer PT 20.9 Seconds (9.4-12.1) H 05/21/17 04:43 - Attending Attestation I examined this patient and my medical decision-making was reviewed with the Resident Physician on 05/22/17. I agree with the documented findings, disposition and treatment plan as described except to the extent set forth below. 71 M being managed for HCAP, hyperkalemia Has no new complains today Seen and evaluated during HD Refused IV access last night and has missed certain antibiotic doses Physical exam is unremarkable. VSS Labs and Imaging reviewed: Hyperkalemia, HB is stable Plan is to de-escalate antibiotics, blood culture is negative, d/c vanco, follow sputum cultures, continue current management, repeat K. Rest of details as in resident physician's documentation
[2017-05-22 10:48] LABS: Hepatitis B Surface Antibody 0.46 mIU/mL
[2017-05-22] MEDS: Budesonide/Formoterol 160/4.5 MDI IH SCH ×2 (10:53→22:17)
[2017-05-22] MEDS: amLODIPine 5 MG TABLET PO SCH ×2 (13:00→21:37)
[2017-05-22] MEDS ORDERED: 0.9 % Sodium Chloride 2,000 ML ONE (15:04)
[2017-05-23] MEDS: Ipratropium/Albuterol Neb 3 ML IH SCH ×4 (04:30→23:49)
[2017-05-23 05:28] LABS: Basophils % 0.3 %; Eosinophils # 0.6 K/mcL (0.0-0.6); Eosinophils % 8.2 %; Hematocrit 26.4 % (37.5-50.1); Immature Granulocytes % 0.4 % (0-4); Lymphocytes # 0.7 K/mcL (0.6-4.6); Mean Corpuscular HGB Conc 30.3 g/dL (31.6-35.5); Mean Corpuscular Volume 98.9 fL (83.0-100.0); Mean Platelet Volume 13.4 fL (9.4-12.4); Monocytes # 0.5 K/mcL (0.0-1.3); Monocytes % 7.2 %; Red Blood Count 2.67 M/mcL (4.19-5.50); Red Cell Distribution Width 17.3 % (11.5-14.5); Segmented Neutrophils % 73.9 %
[2017-05-23 05:34] LABS: Platelet Count 68 K/mcL (140-400)
[2017-05-23 05:38] LABS: Calcium 9.4 mg/dL (8.6-10.8); Potassium 4.8 mEq/L (3.5-4.5)
[2017-05-23] MEDS: Piperacillin/Tazobactam 3.375 GM in D5% in Water (Mini-Bag+) 100 ML IVPB SCH ×2 (06:55→18:30)
[2017-05-23] MEDS: Pantoprazole 40 MG VIAL IVP SCH (06:56)
[2017-05-23] MEDS: *HR* OxyCODONE Immed Rel 5 MG TABLET PO SCH ×2 (08:12→21:17)
[2017-05-23] MEDS: Furosemide 40 MG TABLET PO SCH (08:13)
[2017-05-23] MEDS: APIXABAN 5 MG TABLET PO SCH (08:13)
[2017-05-23] MEDS: Insulin LISPRO 300 UNITS/3 ML VIAL SQ SCH ×4 (08:13→21:08)
[2017-05-23] MEDS: Gabapentin 300 MG CAPSULE PO SCH (08:13)
[2017-05-23] MEDS: Calcium Acetate 667 MG CAPSULE PO SCH ×3 (08:14→17:26)
[2017-05-23] MEDS: amLODIPine 5 MG TABLET PO SCH ×2 (08:14→21:17)
[2017-05-23] MEDS: Isosorbide MONOnitrate (24 HR) 30 MG TAB.ER.24H PO SCH (08:14)
[2017-05-23 08:22] LABS: INR 2.3; Prothrombin Time 25.1 Seconds (9.4-12.1)
--- NOTE | 2017-05-23 08:22 | Nephrology Progress Note ---
Date of Encounter: 05/23/17 Time of Encounter: 07:55 - Assessment and Plan (1) ESRD (end stage renal disease) Current Visit: No Status: Chronic No HDtoday, keeping MWF schedule. Hgb 8.0. Subjective Interval history: Sitting up on edge of bed. States feels better. Would like to go home. Objective - Vital Signs Vital signs: Vital Signs Temp Pulse Resp BP Pulse Ox 05/23/17 08:13 98.3 F 85 15 136/71 98 05/23/17 04:35 97.6 F 87 16 146/56 93 05/22/17 23:28 98.4 F 61 16 90/44 90 05/22/17 20:49 98.1 F 83 16 129/63 91 05/22/17 15:47 98.4 F 91 16 156/68 99 05/22/17 12:35 97.1 F L 18 148/69 05/22/17 12:25 120/49 05/22/17 12:10 120/59 05/22/17 11:55 114/56 05/22/17 11:40 108/56 05/22/17 11:25 111/57 05/22/17 11:10 117/57 05/22/17 10:55 106/54 05/22/17 10:40 122/54 05/22/17 10:25 130/62 05/22/17 10:10 143/70 05/22/17 09:55 148/69 05/22/17 09:40 97.1 F L 20 152/80 Intake and Output 05/22/17 05/23/17 05/23/17 23:59 07:59 15:59 Intake Total 100 / 100 Balance 100 / 100 Intake: IV Fluids 100 / 100 Zosyn 3.375 GM In 100 / 100 Dextrose 5% (Minibag+) 100 ML 100 ML @ 25 mls/hr IVPB Q12H [facility] Rx#: [id number] Other: Weight 72 kg Blood Glucose* 221 155 Patient Weight 05/23/17 23:59 Weight 72 kg - General Appearance General appearance: Present: well-developed, well-nourished, appears started age EENT: Present: mucous membranes moist Neck: Present: no JVD Respiratory: Present: clear Cardiology: Present: no edema, irregular rhythm Gastrointestinal: Present: normoactive bowel sounds, no tenderness Integumentary: Present: warm and dry Neurologic: Present: alert and oriented x3 Psychiatric: Present: mood/affect appropriate, cooperative - Lab 05/23/17 05:15 05/23/17 05:15 Most recent lab results Calcium 9.4 mg/dL (8.6-10.8) 05/23/17 05:15 - VTE Documentation of Mechanical Device: Graduated compression elastic hosiery Consult Discharge Plan - Plan [facility]errals: [facility] [Primary Care Provider] -
[2017-05-23] MEDS: Budesonide/Formoterol 160/4.5 MDI IH SCH ×2 (11:59→23:49)
--- NOTE | 2017-05-23 17:12 | Internal Med Progress Note ---
<Jw Mcintosh - Last Filed: 05/23/17 17:15> Date of Encounter: 05/23/17 - Constitutional Vitals: Temp Pulse Resp BP Pulse Ox 97.4 F L 73 15 104/47 92 05/23/17 12:17 05/23/17 12:17 05/23/17 12:17 05/23/17 12:17 05/23/17 12:17 Internal Medicine: Result - Labs CBC & Chem 7: 05/23/17 05:15 05/23/17 05:15 Labs: Short CBC 05/23/17 Range/Units 05:15 WBC 6.7 (4.3-11.1) K/mcL Hgb 8.0 L (12.9-16.9) g/dL Hct 26.4 L (37.5-50.1) % Plt Count 68 L (140-400) K/mcL Neutrophils # 5.0 (1.6-8.9) K/mcL BMP 05/23/17 05:15 Sodium 139 Potassium 4.8 H D Chloride 100 Carbon Dioxide 29 BUN 25 D Creatinine 5.10 H Glucose 206 H Calcium 9.4 - ABG Interpretation ABG results: PT/INR, D-dimer PT 25.1 Seconds (9.4-12.1) H 05/23/17 08:05 Consult Discharge Plan - Plan Referrals: [facility] [Primary Care Provider] - - Attending Attestation I examined this patient and my medical decision-making was reviewed with the Resident Physician. I agree with the documented findings, disposition and treatment plan as described except to the extent set forth below. <Familia Triplett - Last Filed: 05/23/17 18:30> Date of Encounter: 05/23/17 Time of Encounter: 18:14 - Assessment and plan (1) HCAP (healthcare-associated pneumonia) Current Visit: Yes Status: Acute Assessment and plan: CXR showed left lower lobe pneumonia. Patient with recurrent pneumonias Plan: blood cultures remain negative. sputum cultures pending. Continue zosyn, de-escalated vancomycin and levaquin Patient with known vocal cord dysfunction and recurrent pneumonias, had refused bronch mutiple times in the past Continue O2 supplement prn likely discharge home in next couple days. (2) ESRD (end stage renal disease) on dialysis Current Visit: Yes Status: Acute Assessment and plan: Electrolytes improved Continue HD as scheduled MWF. Renal is following (3) Hyperkalemia Current Visit: Yes Status: Resolved Assessment and plan: continue dialysis regularly scheduled. (4) Left lower lobe pneumonia Current Visit: Yes Status: Acute Assessment and plan: plan as above Qualifiers: Pneumonia type: due to unspecified organism Qualified Code(s): J18.1 - Lobar pneumonia, unspecified organism (5) Anemia of chronic disease Current Visit: Yes Status: Chronic Assessment and plan: HB stable patient had one unit blood transfused during his hospital stay. S/P EGD with multiple gastric polyps and erosions, esophagitis, no biopsy taken On eliquis for afib, and chronic thrombocytopenia Continue PPI and eliquis (6) Diabetes mellitus, type 2 Current Visit: Yes Status: Chronic Assessment and plan: low dose SSI with ACHS accuchecks. Qualifiers: Diabetes mellitus complication status: with neurologic complications Diabetes mellitus complication detail: with polyneuropathy Diabetes mellitus fci insulin use: without fci use Qualified Code(s): E11.42 - Type 2 diabetes mellitus with diabetic polyneuropathy (7) CHF (congestive heart failure) Current Visit: Yes Status: Chronic Assessment and plan: Euvolemic at this time continue home meds. Qualifiers: Congestive heart failure type: diastolic Congestive heart failure chronicity: chronic Qualified Code(s): I50.32 - Chronic diastolic (congestive ) heart failure (8) Essential hypertension Current Visit: Yes Status: Chronic Assessment and plan: continue home meds. (9) Thrombocytopenia Current Visit: Yes Status: Chronic Assessment and plan: Chronic, stable hold Eliquis (10) PAF (paroxysmal atrial fibrillation) Current Visit: Yes Status: Chronic Assessment and plan: stopped Eliquis due to low platelets and risk of bleeding. CHADS/VASC: 5 HAS-Bled score:6: high risk of major bleeding will discuss risks vs. benefits for anticoagulation. (11) CAD (coronary artery disease) Current Visit: Yes Status: Chronic Assessment and plan: Chronic, stable s/p CABG EKG showed some mild changes with ST depressions in the inferior lateral leads, this was reviewed by cardiology and they recommended no intervention Qualifiers: Coronary Disease-Associated Artery/Lesion type: [place] artery [place] vs. transplanted heart: [place] heart Associated angina: without angina Qualified Code(s): I25.10 - Atherosclerotic heart disease of [place] coronary artery without angina pectoris (12) DVT prophylaxis Current Visit: Yes Status: Acute Assessment and plan: stopped eliquis ordered EPCDs - Subjective Interval history: 71 year old male evaluated at bedside. patient was in bed sleeping. he denies nausea, vomiting, diarrhea, fever, chills, chest pain, shortness of breath. he denies any complaints today. - Constitutional Vitals: Temp Pulse Resp BP Pulse Ox 97.4 F L 73 15 104/47 92 05/23/17 12:17 05/23/17 12:17 05/23/17 12:17 05/23/17 12:05/23/17 12:17 General appearance: Present: A&O X 3, pleasant, no acute distress, answers questions appropriately - Head Head exam: Present: atraumatic, normocephalic - Neck Neck exam general surgery: Present: supple, trachea midline - Respiratory Respiratory exam: Present: CTAB - Cardiovascular Cardiovascular exam: Present: irregular rhythm - GI/Abdominal GI/Abdominal exam: Present: normal bowel sounds, soft. Absent: distended, tenderness - Extremities Exam Additional comments: left BKA. redness noted on lower right extremity. - Neurological Exam Neurological exam: Present: alert, oriented X3, no focal deficits - Skin Skin exam: Present: intact Internal Medicine: Result - Labs CBC & Chem 7: 05/23/17 05:15 05/23/17 05:15 Labs: Short CBC 05/23/17 Range/Units 05:15 WBC 6.7 (4.3-11.1) K/mcL Hgb 8.0 L (12.9-16.9) g/dL Hct 26.4 L (37.5-50.1) % Plt Count 68 L (140-400) K/mcL Neutrophils # 5.0 (1.6-8.9) K/mcL BMP 05/23/17 05:15 Sodium 139 Potassium 4.8 H D Chloride 100 Carbon Dioxide 29 BUN 25 D Creatinine 5.10 H Glucose 206 H Calcium 9.4 - ABG Interpretation ABG results: PT/INR, D-dimer PT 25.1 Seconds (9.4-12.1) H 05/23/17 08:05 - VTE Documentation of Mechanical Device: Graduated compression elastic hosiery
[2017-05-23] MEDS: Levofloxacin 500 MG/100 ML 500 MG/100 ML BAG IVPB SCH (17:29)
[2017-05-24] MEDS: Piperacillin/Tazobactam 3.375 GM in D5% in Water (Mini-Bag+) 100 ML IVPB SCH (04:12)
[2017-05-24] MEDS: Ipratropium/Albuterol Neb 3 ML IH SCH ×2 (04:40→11:07)
--- NOTE | 2017-05-24 06:12 | Discharge Summary ---
<Familia Triplett - Last Filed: 05/24/17 15:58> Date of Encounter: 05/24/17 Time of Encounter: 06:00 - Discharge Diagnosis (1) Pneumonia Priority: Primary Status: Acute Qualifiers: Pneumonia type: due to unspecified organism Laterality: unspecified laterality Lung location: unspecified part of lung Qualified Code(s): J18.9 - Pneumonia, unspecified organism (2) ESRD (end stage renal disease) on dialysis Priority: Secondary Status: Acute (3) Left lower lobe pneumonia Priority: Secondary Status: Acute Qualifiers: Pneumonia type: due to unspecified organism Qualified Code(s): J18.1 - Lobar pneumonia, unspecified organism (4) Anemia of chronic disease Priority: Secondary Status: Chronic (5) Diabetes mellitus, type 2 Priority: Secondary Status: Chronic Qualifiers: Diabetes mellitus complication status: with neurologic complications Diabetes mellitus complication detail: with polyneuropathy Diabetes mellitus manager intermediate insulin use: without half-way use Qualified Code(s): E11.42 - Type 2 diabetes mellitus with diabetic polyneuropathy (6) CHF (congestive heart failure) Priority: Secondary Status: Chronic Qualifiers: Congestive heart failure type: diastolic Congestive heart failure chronicity: chronic Qualified Code(s): I50.32 - Chronic diastolic (congestive ) heart failure (7) Essential hypertension Priority: Secondary Status: Chronic (8) Thrombocytopenia Priority: Secondary Status: Chronic (9) PAF (paroxysmal atrial fibrillation) Priority: Secondary Status: Chronic (10) CAD (coronary artery disease) Priority: Secondary Status: Chronic Qualifiers: Coronary Disease-Associated Artery/Lesion type: [place] artery [place] vs. transplanted heart: [place] heart Associated angina: without angina Qualified Code(s): I25.10 - Atherosclerotic heart disease of [place] coronary artery without angina pectoris (11) DVT prophylaxis Priority: Secondary Status: Acute - Discharge Medications Prescriptions: Cefdinir [Omnicef] 300 mg PO BID #18 capsule Pantoprazole Sodium [Protonix] 40 mg PO BID #60 Home Medications: Albuterol Sulfate [Albuterol Inhaler] 2 puff IH QID PRN 09/02/16 [History] Calcium Acetate [Phos-LO] 1,334 mg PO TID 09/02/16 [History] Gabapentin [Neurontin] 300 mg PO DAILY 09/02/16 [History] Isosorbide MONOnitrate (24 HR) [Imdur] 30 mg PO DAILY 09/02/16 [History] Multivitamin [Multivitamins] 1 tab PO DAILY 09/02/16 [History] Sevelamer [Renvela] 2,400 mg PO TIDWM 09/02/16 [History] Acetaminophen/Chlorpheniramine [Coricidin Hbp Cold & Flu Tab] 2 tab PO BID PRN 09/19/16 [History] Albuterol Neb [Proventil Neb] 2.5 mg IH BID PRN 09/19/16 [History] Budesonide/Formoterol 160/4.5 [Symbicort 160/4.5] 2 puff IH Q12H 09/19/16 [ History] Furosemide [Lasix] 40 mg PO DAILY 09/19/16 [History] Terazosin [Hytrin] 1 mg PO DAILY 10/26/16 [History] amLODIPine [Norvasc] 5 mg PO BID 10/26/16 [History] Carvedilol 3.125 mg PO BID 02/28/17 [History] Docusate [Colace] 100 mg PO BID 02/28/17 [History] Polyethylene Glycol 3350 [Smoothlax] 17 gm PO DAILY PRN 02/28/17 [History] OxyCODONE Immed Rel [Roxicodone 5 MG] 5 mg PO DAILY PRN 05/19/17 [History] Oxycodone HCl 10 mg PO BID 05/19/17 [History] Cefdinir [Omnicef] 300 mg PO BID #18 capsule 05/24/17 [Rx] Pantoprazole Sodium [Protonix] 40 mg PO BID #60 05/24/17 [Rx] Allergies/Adverse Reactions: morphine Allergy (Verified 09/19/16 05:43) See Comments Date of admission: 05/19/17 17:41 [facility] physician[facility] Consults: 05/19/17 18:03 Consult to Nephrology [CONS] Routine Consulting Provider: [facility] Briseida MICHAUD Reason for Consult: 71M with ESRD on HD MWF, received dialysis today. Admitted with HCAP, anemia and ekg changes. Call Completed: No 05/19/17 18:40 Consult to Nutrition [CONS] Routine Comment: Consulting Provider: NUTRITION Reason for Dietary Consult: MST Score 05/20/17 08:16 Consult to Surgery [CONS] Routine Consulting Provider[facility] Reason for Consult: GI bleed, guiac positive x 3 Time Notified: 08:19 Call Completed: No 05/20/17 12:00 Consult to Dialysis [CONS] ONCE 05/22/17 08:15 Consult to Dialysis [CONS] ONCE 05/22/17 13:13 Consult to Invasive Line Access Team [CONS] Routine Reason for Consult: powerglide insertion Line Type: EPIV - Patient Status Disposition: Home, Self-Care Condition: Serious Functional capacity at discharge: uses cane/walker Overall status at discharge: patient is progressing back to baseline - Discharge Instructions Instructions: Anemia (GEN), Pneumonia (DC) Follow Up With: [facility] [Primary Care Provider] - 05/30/17 9:00 am Additional Instructions: follow up with primary care doctor within one week of discharge. please finish course of antibiotics. take increased dose of protonix BID stop eliquis return to emergency room if you develop chest pain, shortness of breath, weakness, fevers, or chills. - Diet and Activity Activity: increase activity as tolerated Diet: low fat, low cholesterol, other (renal diet) Hospital course: Mr. Lorenzana is a 71 year old male with PMHx of Afib, COPD, CAD, CVA, DM, ESRD on dialysis MWF, HLD, HTN, OR. Patient arrived to [facility] on 05/19/17 and sent from [place] with complaints of shortness of breath and lightheadedness after dialysis that day, and shortness of breath, with occasional episodes of lightheadedness. Patient was admitted for further workup. His initial troponins were negative. EKG showed some ST depressions and patient was evaluated by cardiology, and they recommended medical management at that time. CXR showed left lower lobe opacities, concerning for pneumonia. Patient does have a history of recurrent pneumonias and known vocal cord dysfunction. He was initially placed on broad spectrum antibiotics that were de-escalated based on persistently negative blood cultures. Patient did have drop in Hg during his hospital stay requiring one unit of blood. He had EGD done which showed a non bleeding gastric ulcer, no specimens were collected. Recommendation was to continue protonix 40mg BID and continue indefinitely. This was changed from patient's home dose of 40mg daily. Patient was on Eliquis for anticoagulation, and his platelets have been chronically low. Since he is at higher risk of bleeding, this was discussed with patient. His CHADS/VASC score is 5 and HAS bled score was 6. Risks vs benefits of anticoagulation, including stroke vs. bleeding were discussed with patient extensively and he decided he would prefer to stop taking the Eliquis. Patient was monitored throughout the course of his hospital stay and remained stable. He received his regularly scheduled dialysis , and was stable upon discharge. He may follow up with PCP regarding continuation of anticoagulation if further discussions are needed. Plan: follow up with primary care doctor within one week of discharge. please finish course of antibiotics. take increased dose of protonix BID return to emergency room if you develop chest pain, shortness of breath, weakness, fevers, or chills. - Time Spent with Patient Total time spent providing and/or coordinating discharge services: - Constitutional Vitals: Temp Pulse Resp BP Pulse Ox 98.5 F 69 16 125/65 98 05/24/17 04:03 05/24/17 04:03 05/24/17 04:03 05/24/17 04:03 05/24/17 04:03 General appearance: Present: A&O X 3, pleasant, no acute distress, answers questions appropriately - Head Head exam: Present: atraumatic, normocephalic - Neck Neck exam general surgery: Present: supple, trachea midline - Respiratory Additional comments: decreased breath sounds in lower lobes bilaterally. - Cardiovascular Cardiovascular exam: Present: irregular rhythm - GI/Abdominal GI/Abdominal exam: Present: normal bowel sounds, soft. 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 - Neurological Exam Neurological exam: Present: alert, oriented X3, no focal deficits - Skin Skin exam: Present: intact - VTE Documentation of Mechanical Device: Graduated compression elastic hosiery <Jw Mcintosh P - Last Filed: 05/24/17 17:54> Date of Encounter: 05/24/17 Date of admission: 05/19/17 17:41 [facility] care physician: [facility] Consults: 05/19/17 18:03 Consult to Nephrology [CONS] Routine Consulting Provider: [facility] HT[facility] Spclsdorina MICHAUD Reason for Consult: 71M with ESRD on HD MWF, received dialysis today. Admitted with HCAP, anemia and ekg changes. Call Completed: No 05/19/17 18:40 Consult to Nutrition [CONS] Routine Comment: Consulting Provider: NUTRITION Reason for Dietary Consult: MST Score 05/20/17 08:16 Consult to Surgery [CONS] Routine Consulting Provider: [facility] Reason for Consult: GI bleed, guiac positive x 3 Time Notified: 08:19 Call Completed: No 05/20/17 12:00 Consult to Dialysis [CONS] ONCE 05/22/17 08:15 Consult to Dialysis [CONS] ONCE 05/22/17 13:13 Consult to Invasive Line Access Team [CONS] Routine Reason for Consult: powerglide insertion Line Type: EPIV 05/24/17 08:30 Consult to Dialysis [CONS] ONCE Hospital course: Mr. Lorenzana is a 71 year old male - Time Spent with Patient Total time spent providing and/or coordinating discharge services: - Constitutional Vitals: Temp Pulse Resp BP Pulse Ox 97.9 F 82 18 123/56 99 05/24/17 12:49 05/24/17 07:54 05/24/17 12:49 05/24/17 12:49 05/24/17 07:54 - Attending Attestation I examined this patient and my medical decision-making was reviewed with the Resident Physician. I agree with the documented findings, disposition and treatment plan as described except to the extent set forth below.
[2017-05-24] MEDS ORDERED: 0.9 % Sodium Chloride 250 ML IVC PRN (08:16)
--- NOTE | 2017-05-24 08:16 | Nephrology Progress Note ---
Date of Encounter: 05/24/17 Time of Encounter: 08:14 - Assessment and Plan (1) ESRD (end stage renal disease) Current Visit: No Status: Chronic Patient will undergo dialysis today and a 2K bath. He does not receive any heparin. He is on Aranesp for his anemia. Iron studies are satisfactory. I suspect he may be able to be discharged home following dialysis today. (2) Atrial fibrillation Current Visit: No Status: Chronic Qualifiers: Atrial fibrillation type: paroxysmal Qualified Code(s): I48.0 - Paroxysmal atrial fibrillation (3) GI bleeding Current Visit: No Status: Acute Qualifiers: GI bleed type/associated pathology: unspecified peptic ulcer Qualified Code (s): K27.4 - Chronic or unspecified peptic ulcer, site unspecified, with hemorrhage (4) Hyperkalemia Current Visit: No Status: Acute Subjective Interval history: Patient is feeling well. He denies any complaints. He denies any shortness of breath or cough. There is no lab today. As of yesterday's hemoglobin was remaining stable. He is scheduled for dialysis today. Objective - Vital Signs Vital signs: Vital Signs Temp Pulse Resp BP Pulse Ox 05/24/17 07:54 97.9 F 82 18 109/45 99 05/24/17 04:03 98.5 F 69 16 125/65 98 05/23/17 23:49 97.7 F 81 16 104/68 100 05/23/17 21:12 142/70 05/23/17 20:04 98.3 F 94 16 83/41 95 05/23/17 17:14 99 F 90 18 118/45 87 05/23/17 12:17 97.4 F L 73 15 104/47 92 Intake and Output 05/23/17 05/24/17 05/24/17 23:59 07:59 15:59 Intake Total 100 / 100 Balance 100 / 100 Intake: IV Fluids 100 / 100 Zosyn 3.375 GM In 100 / 100 Dextrose 5% (Minibag+) 100 ML 100 ML @ 25 mls/hr IVPB Q12H [facility] Rx#: [id number] Oral 0 / 0 Other: Meal Dinner Percent of Meal Consumed 50% Weight 72.756 kg Blood Glucose* 175 175 - General Appearance Exam: Patient is alert and oriented. He is in no acute distress. Lungs diminished breath sounds otherwise clear. Heart regular rate and rhythm. Abdomen is benign. There is no lower extremity swelling. Patient is status post left BKA. There is a functioning AV fistula in the left upper extremity. - Lab 05/23/17 05:15 05/23/17 05:15 Most recent lab results Calcium 9.4 mg/dL (8.6-10.8) 05/23/17 05:15 - VTE Documentation of Mechanical Device: Graduated compression elastic hosiery Consult Discharge Plan - Plan Additional Instructions: follow up with primary care doctor within one week of discharge. please finish course of antibiotics. take increased dose of protonix BID stop eliquis return to emergency room if you develop chest pain, shortness of breath, weakness, fevers, or chills. [facility]errals: [facility] [Primary Care Provider] - Prescriptions: Cefdinir [Omnicef] 300 mg PO BID #14 capsule Pantoprazole Sodium [Protonix] 40 mg PO BID #60
[2017-05-24] MEDS: Calcium Acetate 667 MG CAPSULE PO SCH ×2 (08:28→13:11)
[2017-05-24] MEDS: Gabapentin 300 MG CAPSULE PO SCH (08:28)
[2017-05-24] MEDS: Isosorbide MONOnitrate (24 HR) 30 MG TAB.ER.24H PO SCH (08:29)
[2017-05-24] MEDS: Furosemide 40 MG TABLET PO SCH (08:29)
[2017-05-24] MEDS: *HR* OxyCODONE Immed Rel 5 MG TABLET PO SCH (08:29)
[2017-05-24] MEDS: amLODIPine 5 MG TABLET PO SCH (08:30)
[2017-05-24] MEDS: Insulin LISPRO 300 UNITS/3 ML VIAL SQ SCH (08:30)
[2017-05-24] MEDS: Budesonide/Formoterol 160/4.5 MDI IH SCH (11:07)
[2017-05-24 12:52] VITALS: BP 123/56
== END 2017-05-24 13:40 | disposition home or self-care (01) | DRG 190 ==
LOC: EMEROO 14:25 → 2ANU 14:25 → SUATTDRO 17:41 → 2ANU 17:53
PROVIDERS: ADMIT Internal Medicine Endocrinology, Diabetes & Metabolism; ATTEND Internal Medicine